=== PATIENT | male | born 1970 | race Caucasian/White ===

== ENCOUNTER 2019-07-06 09:13 | Day surgery (SDC) | payer BC ==
[~2019-07-06] VITALS: Ht 170.2 cm; Wt 79.4 kg
[~2019-07-06 09:13] MED LIST: PROAIR HFA8.5 GM IH
[2019-07-06] MEDS ORDERED: FLONASE ALLERG9.9 ML NAS (09:30)
--- NOTE | 2019-07-06 13:05 | OR ---
[facility] [address], [place] [address] Signed DATE OF OPERATION: 07/06/2019 SURGEON: Loco Miller MD PREOPERATIVE DIAGNOSIS: Left lower pole 4.3 cm "hot" nodule of thyroid (TSH 0.006, T4 normal, radionuclide test showing hot nodule). POSTOPERATIVE DIAGNOSIS: Left lower pole 4.3 cm "hot" nodule of thyroid (TSH 0.006, T4 normal, radionuclide test showing hot nodule). PROCEDURE: Ultrasound-guided fine-needle aspiration biopsy of left thyroid nodule, 4.3 cm. ANESTHESIA: 2 mL of 1.6% lidocaine. INDICATIONS: This 49-year-old white man is a patient of Dr. Sullivan. In routine lab testing, he was found to have a very low TSH. Radionuclide imaging test was undertaken, though he had few of any clinical symptoms of hypothyroidism. This showed a hot uni-focal uptake of the left thyroid lobe. Ultrasound was subsequently performed showing a discrete 4.3 cm nodule of the left lower pole of the thyroid. Thyroid tests were removed, reviewed, and repeated by me showing TSH of 0.006 with a normal T4, T3, only slightly elevated T3. He is clinically euthyroid. He is anticipating left thyroid lobectomy for excision of a hot nodule. Although, uncommon, possibility of malignancy of the hot nodule is considered and on that basis, I have recommend fine-needle aspiration biopsy by ultrasound guidance to determine that possibility. The risks of bleeding and so forth were reviewed with him, he understands and wished to proceed. FINDINGS: The nodule was very easily identified and easily accessed with the 22-gauge needle. Two separate syringe samples were obtained without problem. He had no complications. DESCRIPTION OF PROCEDURE: In the Day Surgery area in room #6, he was placed in a supine position with a pillow beneath the shoulders. Ultrasound evaluation was undertaken of the thyroid gland showing a [id number] right thyroid lobe and a very obvious large nodule of the left thyroid lobe. The skin was then prepared with chlorhexidine solution. Sterilely Electronically Signed By: LOCO MILLER MD 07/06/19 1305 PATIENT NAME: SOCRATES JIN OPERATIVE REPORT DATE OF : 72 REPORT #: [id number] PHYSICIAN: LOCO MILLER MD PCP: LOUISA SULLIVAN MD REPORT IS CONFIDENTIAL AND NOT TO BE RELEASED WITHOUT AUTHORIZATION [facility] [address] [place] [id number] Signed draped. Sterile cover was placed to the ultrasound probe, and under direct visualization the skin overlying the left thyroid lobe was anesthetized with 1% lidocaine. Once fully anesthetized, a control syringe with a 22-gauge needle was used, easily accessing the nodule in question and multiple passes passed through it, obtaining sample. The first was slightly bloody. A repeat was undertaken, at this time with less blood. Both specimens were sent separately. There was no untoward bleeding. There was no known complication. Bandage applied. He tolerated the procedure well. MD CHAPIN Wolf/VIKI /[id number] Copies: ~ Electronically Signed By: LOCO MILLER MD 07/06/19 1305 PATIENT NAME: SOCRATES JIN Genoveva OPERATIVE REPORT DATE OF : 72 REPORT #: [id number] PHYSICIAN: LOCO MILLER MD PCP: LOUISA SULLIVAN MD REPORT IS CONFIDENTIAL AND NOT TO BE RELEASED WITHOUT AUTHORIZATION
[2019-07-20] MEDS ORDERED: TOPROL XL25 MG PO (08:23)
[2019-07-20] MEDS ORDERED: METHIMAZOLE5 MG PO (08:23)
== END 2019-07-06 10:05 | disposition home or self-care (01) ==
LOC: OPS 09:13 → DS 09:30 → EDSTATUS 09:30 → OPS 09:30
PROC: 0GBG3ZX Excision of Left Thyroid Gland Lobe, Percutaneous Approach, Diagnostic (ICD-10-PCS; principal; 2019-07-06)
DX: E05.10 Thyrotoxicosis with toxic single thyroid nodule without thyrotoxic crisis or storm (principal); I10 Essential (primary) hypertension
CPT/HCPCS: 10021

== ENCOUNTER 2019-07-25 07:40 | Observation (INO) | payer BC ==
[~2019-07-25] VITALS: Ht 170.2 cm; Wt 79.4 kg
--- OUTSIDE RECORDS SUMMARY | ~2019-07-25 | XMS | Encounter Summary ---
Demographics + + + | Address | [address] | | | [place] [address] | + + + | Home Phone | | + + + | Preferred Language | Unknown | + + + | Marital Status | Single | + + + | Mormonism Affiliation | NRP | + + + | Race | White | + + + | Ethnic Group | Not or | + + + Author + + + | Author | [facility] | + + + | Organization | [facility] | + + + | Address | Unknown | + + + | Phone | Unavailable | + + + Support + + +---------+ + | Name | Relationship | Address | Phone | + + +---------+ + | Azul Stubbs | ECON | Unknown | | + + +---------+ + Care Team Providers + +------+ + | Care Last Dipper Name | Role | Phone | + +------+ + | Les Guzman PA-C | PCP | | + +------+ + Encounter Details +--------+ + + + + | Date | Type | Department | Care Team | Description | +--------+ + + + + | 08/31/ | Procedure | [facility] | | | | 2017 | Pass | [facility] | | | | | [facility] | | | | | | Center Admitting | | | | | | Desk Located on the | | | | | | 4th floor [address] | | | | | | [address] [place], | | | | | | [place] [address] | | | +--------+ + + + + Social History + +-------+ +--------+------+ | Tobacco Use | Types | Packs/Day | Years | Date | | | | | Used | | + +-------+ +--------+------+ | Never Smoker | | | | | + +-------+ +--------+------+ + +------+---+---+ | Smokeless Tobacco: | Chew | | | | Current User | | | | + +------+---+---+ + + +---------+ + | Alcohol Use | Drinks/Week | oz/Week | Comments | + + +---------+ + | Yes | 12 Cans of beer | 12.0 | 1-2 day | + + +---------+ + + + + | Sex Assigned at | Date Recorded | | | | + + + | Not on file | | + + + + + + + | Job Start Date | Occupation | Industry | + + + + | Not on file | Not on file | Not on file | + + + + + + + + | Travel History | Travel Start | Travel End | + + + + + + | No recent travel history available. | + + documented as of this encounter Plan of Treatment Not on filedocumented as of this encounter Visit Diagnoses Not on filedocumented in this encounter"
--- OUTSIDE RECORDS SUMMARY | ~2019-07-25 | XMS | Encounter Summary ---
Demographics + + + | Address | [address] | | | [place] [address] | + + + | Home Phone | | + + + | Preferred Language | Unknown | + + + | Marital Status | Single | + + + | Mandaen Affiliation | NRP | + + + | Race | White | + + + | Ethnic Group | Not or | + + + Author + + + | Organization | Unknown | + + + | Address | Unknown | + + + | Phone | Unavailable | + + + Support + + +---------+ + | Name | Relationship | Address | Phone | + + +---------+ + | Azul Stubbs | ECON | Unknown | | + + +---------+ + Care Team Providers + +------+ + | Care Children'S Counselor Name | Role | Phone | + +------+ + | Les Guzman PA-C | PCP | | + +------+ + Encounter Details +--------+--------+ + + + | Date | Type | Department | Care Team | Description | +--------+--------+ + + + | 04/20/ | Travel | | | | | 2020 | | | | | +--------+--------+ + + + Social History + +-------+ [...]
--- OUTSIDE RECORDS SUMMARY | ~2019-07-25 | XMS | Clinical Summary ---
Demographics + + + | Address | [address] | | | [place] [address] | + + + | Home Phone | | + + + | Preferred Language | Unknown | + + + | Marital Status | Single | + + + | Roman Catholic Affiliation | NRP | + + + | Race | White | + + + | Ethnic Group | Not or | + + + Author + + + | Author | [facility] | + + + | Organization | [facility] | + + + | Address | Unknown | + + + | Phone | Unavailable | + + + Support + + +---------+ + | Name | Relationship | Address | Phone | + + +---------+ + | Azul Stubbs | ECON | Unknown | | + + +---------+ + Care Team Providers + +------+ + | Care Compressed Gas Plant Worker Name | Role | Phone | + +------+ + | Les Guzman PA-C | PCP | | + +------+ + Source Comments TARIK is fully live on both [facility] and [facility] Allergies No Known Allergies Medications + + + +---------+------+------+-------+ | Medication | Sig | Dispensed | Refills | Star | End | Statu | | | | | | t | Date | s | | | | | | Date | | | + + + +---------+------+------+-------+ | ibuprofen 200 mg | Take 200 mg by mouth | | 0 | | | Activ | | oral tablet | every six hours as | | | | | e | | | needed. | | | | | | + + + +---------+------+------+-------+ | diclofenac 1 % | Apply to affected | 100 g | 3 | 02/0 | | Activ | | topical gel | area four times | | | 6/20 | | e | | | daily. Apply 4 g | | | 20 | | | + + + +---------+------+------+-------+ Active Problems Not on file Encounters +--------+ + + + + | Date | Type | Specialty | Care Team | Description | +--------+ + + + + | 07/17/ | MyChart | Orthopedics | Uzma Meadows | RE: Loyd Pham - | | 2020 | Encounter | | MD Tiffanie | Reqeust MMI | +--------+ + + + + from Last 3 Months Social History + +-------+ +--------+------+ | Tobacco [...] recent travel history available. | + + Last Filed Vital Signs + + + [...] + + + + | Weight | 81.6 kg (180 lb) | 04/20/2019 12:58 PM | | | | | PST | | + + + + + | Height | 170.2 cm (5' 7") | 04/20/2019 12:58 PM | | | | | PST | | + + + + + | Body Mass Index | 28.19 | 04/20/2019 12:58 PM | | | | | PST | | + + + + + Plan of Treatment + + + + + | Health Maintenance | Due Date | Last Done | Comments | + + + + + | Influenza (Flu) | | 12/30/2015, 01/07/2015, | | | vaccination (Season | 0 | 03/21/2013, Additional history | | | Ended) | | exists | | + + + + + | Pneumococcal | Aged Out | | No longer eligible | | vaccination | | | based on patient's | | | | | age to complete this | | | | | topic | + + + + + Implants + +------+--------+ +--------+--------+--------+ | Implanted | Type | Area | Manufacture | Device | Shelf | Model | | | | | r | | Expira | / | | | | | | Identi | tion | Serial | | | | | | fier | Date | / Lot | + +------+--------+ +--------+--------+--------+ | Suture [place], Peek Corkscrew | | Right: | ARTHREX | | 02/24/ | AR-192 | | Ft Tipleplay Implanted: Qty: | | | | | 2020 | 7PSF-3 | | 2 on 08/31/2016 by Abdiel, | | Should | | | | / | | Uzma Moreno MD at [facility] | | er | | | | /[id number] | | INPATIENT REV LOC | | | | | | 993 | + +------+--------+ +--------+--------+--------+ | [place] Suture 5.5mm 2 Full | | Right: | ARTHREX | | 03/14/ | AR-192 | | Thread Corkscrew Fiberwire 2 | | | | | 2020 | 7PSF / | | Peek 14.7mm Sterile | | Should | | | | | | Disposable - | | er | | | | /[id number] | | [id number]: Qty: 1 on | | | | | | 619 | | 08/31/2016 by Abdiel, | | | | | | | | Uzma Moreno MD at [facility] | | | | | | | | INPATIENT REV LOC | | | | | | | + +------+--------+ +--------+--------+--------+ | [place] Suture 4.75mm | | Right: | ARTHREX | | 11/12/ | AR-232 | | Swivelock Closed Eyelet Vent | | | | | 2020 | 4PSLC | | Peek 19.1mm Sterile | | Should | | | | / | | Disposable - | | er | | | | /[id number] | | [id number]: Qty: 1 on | | | | | | 095 | | 08/31/2016 by Abdiel, | | | | | | | | Uzma Moreno MD at [facility] | | | | | | | | INPATIENT REV LOC | | | | | | | + +------+--------+ +--------+--------+--------+ Results Not on filefrom Last 3 Months Insurance + +--------+ +--------+ + +--------+ | Payer | Benefi | Subscriber | Effect | Phone | Address | Type | | | t Plan | ID | wilfred | | | | | | / | | Dates | | | | | | Group | | | | | | + +--------+ +--------+ + +--------+ | [employer]OR | US | [phone] | 03/06/ | [phone] | [address] | Worker | | | DEPT | | 2016-P | [address] | [phone] | s [address] | | | OF | | resent | | [place], [place] | | | | LABOR | | | | [id number] | | | | WC | | | | | | + +--------+ +--------+ + +--------+ | [place] | BLUE | [phone] | | [phone] | [address] | PPO | | | CROSS | | [phone]-[phone] | 8 | [phone] | | | | [place] | | esent | | [place], | | | | L | | | | [place] [address] | | + +--------+ +--------+ + +--------+ + +--------+ +--------+ + + | Guarantor Name | Accoun | Relation to | Date | Phone | Billing Address | | | t Type | Patient | of | | | | | | | | | | + +--------+ +--------+ + + | Loyd Pham | Person | Self | [birth year] | [address] | | | al/Fam | | 1971 | [id number] | [place] [address] | | | alyssa | | | 3 (Home) | | + +--------+ +--------+ + + | Loyd Pham | Worker | Self | [birth year] | | [address] | | | s Comp | | 1970 | [id number] | [place] [address] | | | | | | 3 (Home) | | + +--------+ +--------+ + + Advance Directives + + + + + | Code Status | Date | Date | Comments | | | Activated | Inactivated | | + + + + + | Full Code | 08/31/2016 | 08/31/2016 | | | | 9:56 AM | 11:59 PM | | + + + + +
--- OUTSIDE RECORDS SUMMARY | ~2019-07-25 | XMS | Encounter Summary ---
Demographics + + + | Address | [address] | | | [place] [address] | + + + | Home Phone | | + + + | Preferred Language | Unknown | + + + | Marital Status | Single | + + + | Evangelical Affiliation | NRP | + + + | Race | White | + + + | Ethnic Group | Not or | + + + Author + + + | Author | [facility] | + + + | Organization | [facility] | + + + | Address | Unknown | + + + | Phone | Unavailable | + + + Support + + +---------+ + | Name | Relationship | Address | Phone | + + +---------+ + | Azul Stubbs | ECON | Unknown | | + + +---------+ + Care Team Providers + +------+ + | Care Director Dietetics Department Name | Role | Phone | + +------+ + | Les Guzman PA-C | PCP | | + +------+ + Encounter Details +--------+ + + + + | Date | Type | Department | Care Team | Description | +--------+ + + + + | 07/12/ | Document-Sc | Health Information | Unknown . | | | 2017 | anned | Services [address] | | | | | [address] | | | | | | Mailcode: [id number] | | | | | | [facility] | | | | | | [place], [place] | | | | | | [address] | | | | | | [phone] | | | +--------+ + + + [...]
--- OUTSIDE RECORDS SUMMARY | ~2019-07-25 | XMS | Encounter Summary ---
Demographics + + + | Address | [address] | | | [place] [address] | + + + | Home Phone | | + + + | Preferred Language | Unknown | + + + | Marital Status | Single | + + + | Synagogue Affiliation | NRP | + + + | Race | White | + + + | Ethnic Group | Not or | + + + Author + + + | Author | [facility] | + + + | Organization | [facility] | + + + | Address | Unknown | + + + | Phone | Unavailable | + + + Support + + +---------+ + | Name | Relationship | Address | Phone | + + +---------+ + | Azul Stubbs | ECON | Unknown | | + + +---------+ + Care Team Providers + +------+ + | Care Wastewater Analyst Lab Analyst Name | Role | Phone | + [...] | | tear of | MD Tiffanie 1910 | [facility] | | | | | right | [address] | [address] | | | | | rotator cuff | [place] | Mar[place] | | | | | Procedures | [address] | [place] | | | | | PHYSICAL | Phone: | [phone] | | | | | THERAPY | [phone] | Phone: | | | | | REFERRAL | Fax: | [phone] | | | | | | [phone] | Fax: | | | | | | | [phone] | +--------+--------+ + + + + PROC [...] | | tear of | [place] | [address] | | | | | right | Medical | [address] | | | | | rotator cuff | [address] | [place], [place] | | | | | Procedures | [address] | [address] | | | | | REQUEST TO | St | Phone: | | | | | SURGERY | [place] | [phone] | | | | | MACHINE TOOL MECHANIC | [address] | Fax: | | | | | [facility] | Phone: | [phone] | | | | | ARTHROSCOP,S | [phone] | | | | | | URG,W/ROTAT | Fax: | | | | | | CUFF REPR | [phone] | | | | | | [facility] | | | | | | | ARTHROSCOP,P | | | | | | | ART | | | | | | | ACROMIOPLAS | | | | | | | W/CORACOACRO | | | | | | | M [facility] [facility] | | | | | | | ARTHROSCOP,S | | | | | | | URG,CAPSULOR | | | | | | | [place] | | | | | | | [...] | | injury of | [place] | [address] | | | | | muscle(s) | Medical | [address] | | | | | and | [facility] [address] | [place], [place] | | | | | tendon(s) of | [address] | [address] | | | | | the rotator | St | Phone: | | | | | cuff of | [place], [place] | [phone] | | | | | right | [address] | Fax: | | | | | shoulder, | Phone: | [phone] | | | | | subsequent | [phone] | | | | | | encounter | Fax: | | | | | | Pain in | [phone] | | | | | | right [...] | 2017 | Visit | [facility] at [facility] | M, MD [address] | right rotator cuff | | | | for Health and | Ave [place], [place] | (Primary Dx) | | | | Healing [address] | [address] | | | | | Ave Mailcode: | [phone] | | | | | [facility] | | | | | | Health and Healing, | | | | | | [facility] | | | | | | Floor [place], [place] | | | | | | [address] | | | | | | [phone] | | | +--------+---------+ + + + [...] 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 Tobacco: chews tobacco, no smoking. EtOH: 2-3/week. [...] ++ neg Cross-chest Not tested Not tested Cresco's Not tested Not tested Yergason (resisted supination) [...] were answered today. 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 Uzma Meadows MD [facility] Department of Orthopaedics and Rehabilitation Division of [...]
--- OUTSIDE RECORDS SUMMARY | ~2019-07-25 | XMS | Encounter Summary ---
Demographics + + + | Address | [address] | | | [place] [address] | + + + | Home Phone | | + + + | Preferred Language | Unknown | + + + | Marital Status | Single | + + + | Oriental Orthodox Affiliation | NRP | + + + | Race | White | + + + | Ethnic Group | Not or | + + + Author + + + | Author | [facility] | + + + | Organization | [facility] | + + + | Address | Unknown | + + + | Phone | Unavailable | + + + Support + + +---------+ + | Name | Relationship | Address | Phone | + + +---------+ + | Azul Stubbs | ECON | Unknown | | + + +---------+ + Care Team Providers + +------+ + | Care Ship/Rec/Doc Control Name | Role | Phone | + +------+ + | Les Guzman PA-C | PCP | | + +------+ + Encounter Details +--------+ + + + + | Date | Type | Department | Care Team | Description | +--------+ + + + + | 04/20/ | Hospital | Radiology/Imaging | Cherelle King | Canceled (Patient | | 2020 | Encounter | Lab at [facility] [address] Ida Moreno PA-C [address] | Request) | | | | Prasanna Cisneros Mailcode: | [address] | | | | | [facility] | [place], [place] | | | | | Health and Healing, | [address] | | | | | [address] | [phone] | | | | | Floor [place], [place] | | | | | | [address] | | | | | | [phone] | | | +--------+ + + + [...] + + documented as of this encounter Medications at Time of Discharge + + + +---------+ + + | Medication | Sig | Dispensed | Refills | Start | End Date | | | | | | Date | | + + + +---------+ + + | diclofenac 1 % | Apply to affected | 100 g | 3 | 04/20/19 | | | topical gel | area four times | | | 20 | | | | daily. Apply 4 g | | | | | + + + +---------+ + + | ibuprofen 200 mg | Take 200 mg by mouth | | 0 | | | | oral tablet | every six hours as | | | | | | | needed. | | | | | + + + +---------+ + + documented as of this encounter Plan of Treatment Not on filedocumented as of this encounter Visit Diagnoses + + | Diagnosis | + + | Complete tear of right rotator cuff, unspecified whether traumatic | + + | Right elbow pain Pain in joint, upper arm | + + documented in this encounter"
--- OUTSIDE RECORDS SUMMARY | ~2019-07-25 | XMS | Encounter Summary ---
Demographics + + + | Address | [address] | | | [place] [address] | + + + | Home Phone | | + + + | Preferred Language | Unknown | + + + | Marital Status | Single | + + + | Mosque Affiliation | NRP | + + + [...] Team Providers + +------+ + | Care Sustainability Communicator Name | Role | Phone | + +------+ + | Les Guzman PA-C | PCP | | + +------+ + Reason for Visit +---------+ + | Reason | Comments | +---------+ + | Post Op | right shoulder | +---------+ + PROC - Outpatient Surgery (Urgent) +--------+--------+ [...] | | tear of | Gem | [address] | | | | | right | Medical | [address] | | | | | rotator cuff | Center [address] | [place], [place] | | | | | Procedures | [address] | [address] | | | | | REQUEST TO | St | Phone: | | | | | SURGERY | [place] | [phone] | | | | | RACING DRIVER | [address] | Fax: | | | | | PA SHLDR | Phone: | [phone] | | | | | ARTHROSCOP,S | [phone] | | | | | | URG,W/ROTAT | Fax: | | | | | | CUFF REPR | [phone] | | | | | | PA SHLDR | | | | | | | ARTHROSCOP,P | | | | | | | ART | | | | | | | ACROMIOPLAS | | | | | | | W/CORACOACRO | | | | | | | M PA SHLDR | | | | | | | ARTHROSCOP,S | | | | | | | URG,CAPSULOR | | | | | | | RHAPHY PA | | | | | | | REPAIR | | | | | | | BICEPS LONG | | | | | | | TENDON | | | +--------+--------+ + + + + Encounter Details +--------+---------+ + + + | Date | Type | Department | Care Team | Description | +--------+---------+ + + + | 09/16/ | Office | Orthopaedics | Antonia Meadowsline | Complete tear of | | 2017 | Visit | [facility] at [place] | MD Tiffanie [address] | right rotator cuff | | | | for Health and | Ave [place], [place] | (Primary Dx) | | | | Healing [address] | [address] | | | | | Ave Mailcode: | [phone] | | | | | [facility] | | | | | | Health and Healing, | | | | | | [facility] | | | | | | Floor [place], [place] | | | | | | [address] | | | | | | [phone] | | | +--------+---------+ + + + [...] Weight | 79.4 kg (175 lb) | 09/16/2016 10:00 AM | | | | | PDT | | + + + + + | Height | 170.2 cm (5' 7") | 09/16/2016 10:00 AM | | | | | PDT | | + + + + + | Body Mass Index | 27.41 | 09/16/2016 10:00 AM | | | | | PDT | | + + + + + documented in this encounter Progress Notes Uzma Meadows MD - 09/16/2016 10:20 AM PDTDiagnosis: right shoulder rotator cuff tea r Interventions to date: 08/31/2016 right shoulder arthroscopy with rotator cuff repair (supra spinatus and infraspinatus) and subacromial decompression Review of interval history and current physical exam indicates that each is essentially unc hanged with the notable exceptions as described above and below. Subjective: Loyd Pham is now nearly 2 weeks out from the above procedure and is doing we ll. He had some increased pain immediately following his surgery, however this improved on its own and he is now off of all pain medications. He continues to work on [employer] es is very pleased with his progress at this point. He has had some paresthesias and numbne ss over the base of his thumb, but he thinks that this is slowly getting better. EXAM: Posture: in sling. Right upper extremity Skin and Soft tissue: incisions clean and dry with no signs of infection, well healed. Mildly decreased sensation at dorsal base of thumb Extends thumb, flexes index distal interphalangeal joint, abducts and crosses fingers Full ROM in forearm pronosupination Fingers warm and well perfused Assessment: Loyd is recovering well from his right rotator cuff repair, now 2 weeks out. He does seem to have a superficial radial nerve injury, likely from positioning during sugar elliott. We will continue to follow this with the expectation that it will improve over time. Plan: Continue dangling shoulder ROM OK for full elbow flexion/extension and pronosupination with elbow at side Follow up in clinic in 4 weeks for initiation of physical therapy and potential discontinua tion of sling use I personally interviewed and evaluated this patient. I agree with the resident's findings and plan of care as described. Uzma Meadows MD [facility] [place] Department of Orthopaedics and Rehabilitation Division of Sports Medicine documented in thi s encounter Plan of Treatment Not on filedocumented as of this encounter Visit Diagnoses + + | Diagnosis | + + | Complete tear of right rotator cuff - Primary Complete rupture of rotator cuff | + + documented in this encounter
--- OUTSIDE RECORDS SUMMARY | ~2019-07-25 | XMS | Encounter Summary ---
Demographics + + + | Address | [address] | | | [place] [address] | + + + | Home Phone | | + + + | Preferred Language | Unknown | + + + | Marital Status | Single | + + + | Buddhist Affiliation | NRP | + + + | Race | White | + + + | Ethnic Group | Not or | + + + Author + + + | Author | [facility] | + + + | Organization | [facility] | + + + | Address | Unknown | + + + | Phone | Unavailable | + + + Support + + +---------+ + | Name | Relationship | Address | Phone | + + +---------+ + | Azul Stubbs | ECON | Unknown | | + + +---------+ + Care Team Providers + +------+ + | Care Top Spotter Name | Role | Phone | + [...] + + | 08/31/ | Hospital | [facility] | Uzma Meadows | | | 2017 | Encounter | STAY [address] | MD Tiffanie [address] | | | | | [place] Mailcode: DONNA | [place], [place] | | | | | [facility] | [address] | | | | | Health and Healing, | [phone] | | | | | [place] [address] | | | | | | [place], [place] | | | | | | [address] | | | | | | [phone] | | | +--------+ + + + [...] towards you body. documented in this encounter Plan of Treatment Not on [...] | Uzma Meadows MD 08/31/2016 6:02 PM [facility] Orthopaedic | | | Sports Surgery Operative Report Date of surgery: 08/31/2016 | | | Preoperative diagnosis: right shoulder rotator cuff tear | | | Postoperative diagnosis: same Procedure: right shoulder | | | arthroscopy with rotator cuff repair (supraspinatus and | | | infraspinatus) and subacromial decompression Surgeon: Uzma | | | MD Abdiel Enrollment Services Vice President: Jose Gaming MD Implants: Arthrex 5.5 mm [...] entire case. Uzma Meadows, | | | [facility] Department of Orthopaedics | | | [...]
--- OUTSIDE RECORDS SUMMARY | ~2019-07-25 | XMS | Encounter Summary ---
Demographics + + + | Address | [address] | | | [place] [address] | + + + | Home Phone | | + + + | Preferred Language | Unknown | + + + | Marital Status | Single | + + + | Muslim Affiliation | NRP | + + + | Race | White | + + + | Ethnic Group | Not or | + + + Author + + + | Author | [facility] | + + + | Organization | [facility] | + + + | Address | Unknown | + + + | Phone | Unavailable | + + + Support + + +---------+ + | Name | Relationship | Address | Phone | + + +---------+ + | Azul Stubbs | ECON | Unknown | | + + +---------+ + Care Team Providers + +------+ + | Care Box Inspector Name | Role | Phone | + +------+ + | Les Guzman PA-C | PCP | | + +------+ + Encounter Details +--------+ + + + + | Date | Type | Department | Care Team | Description | +--------+ + + + + | 04/20/ | Hospital | Radiology/Imaging | Cherelle King | | | 2020 | Encounter | Lab at [facility] [address] PA-C [address] | | | | | [address] Mailcode: | [address] | | | | | [address] for | [place], [place] | | | | | Health and Healing, | [address] | | | | | | [phone] | | | | | Floor [place], [place] | | | | | | [address] | | | | | | [phone] | | | +--------+ + + + [...] Perry MD 04/20/2019 12:34 PM | |Preliminary: uSkumar Perry MD | |Dictation initiated: Sukumar Perry [...]
--- OUTSIDE RECORDS SUMMARY | ~2019-07-25 | XMS | Encounter Summary ---
Demographics + + + | Address | [address] | | | [place] [address] | + + + | Home Phone | | + + + | Preferred Language | Unknown | + + + | Marital Status | Single | + + + | Zoroastrianism Affiliation | NRP | + + + | Race | White | + + + | Ethnic Group | Not or | + + + Author + + + | Author | [facility] | + + + | Organization | [facility] | + + + | Address | Unknown | + + + | Phone | Unavailable | + + + Support + + +---------+ + | Name | Relationship | Address | Phone | + + +---------+ + | Azul Stubbs | ECON | Unknown | | + + +---------+ + Care Team Providers + +------+ + | Care Charm Filter Operator Helper Name | Role | Phone | + +------+ + | Les Guzman PA-C | PCP | | + +------+ + Reason for Visit + + + | Reason | Comments | + + + | Follow-up encounter | | + + + Encounter Details +--------+---------+ + + + | Date | Type | Department | Care Team | Description | +--------+---------+ + + + | 05/09/ | Office | Orthopaedics | Uzma Meadows | Complete tear of | | 2019 | Visit | Faculty at [place] | MD Tiffanie [address] | right rotator cuff | | | | for Health and | Ave [place], [place] | (Primary Dx) | | | | Healing [address] | [address] | | | | | Ave Mailcode: | [phone] | | | | | [facility] [place] for | | | | | | Health and Healing, | | | | | | [facility] | | | | | | Floor [place], [place] | | | | | | [address] | | | | | | [phone] | | | +--------+---------+ + + + [...] + + documented as of this encounter Progress Notes Uzma Meadows MD - 05/09/2018 11:00 AM PST Diagnosis: rightshoulder rotator cuff tear [facility] date: [facility] repair (supr aspinatus and infraspinatus) andsubacromial decompression Review of interval history and current physical exam indicates that each is essentially unc hanged with the notable exceptions as described above and below. Subjective: Reports that he has been working at [employer] with minimal discomfort Still notes some weakness of the right upper extremity compared to the left EXAM: Posture: normal. Skin and Soft tissue: well healed. Range of motion: Right Left Active Passive Active Passive Forward flexion 180 180 Ext. rotation @ 0 90 90 Internal rotation T8 T4 Abduction 180 180 Strength: Operative arm Supraspinatus 4+/5 Infraspinatus 5/5 Subscapularis 5/5 Deltoid 5/5 Biceps 5/5 Assessment: >1 year post operative. Doing well with mild end range of motion deficits com pared to non-operative side and slight decreased strengthen of supraspinatus that should imp rove with continual work. Plan: - continue with home exercise program - given physician note for work purposes - follow up prn; patient will continue physical therapy for as long as he is seeing a benef it, and transition to home program at that time I personally interviewed and evaluated this patient. I agree with the fellow's findings an d plan of care as described. Uzma Meadows MD [facility] Department of Orthopaedics and Rehabilitation Division of Sports Medicine documented in thi s encounter Plan of Treatment Not on filedocumented as of this encounter Visit Diagnoses + + | Diagnosis | + + | Complete tear of right rotator cuff - Primary Complete rupture of rotator cuff | + + documented in this encounter"
--- OUTSIDE RECORDS SUMMARY | ~2019-07-25 | XMS | Encounter Summary ---
Demographics + + + | Address | [address] | | | [place] [address] | + + + | Home Phone | | + + + | Preferred Language | Unknown | + + + | Marital Status | Single | + + + | Sikh Affiliation | NRP | + + + [...] Team Providers + +------+ + | Care Lathe Setup Operator Name | Role | Phone | + [...] + + | 08/31/ | Surgery | [facility] | Uzma Meadows | RIGHT SHOULDER | | 2017 | | [place] for [facility] | MD Tiffanie [address] | ARTHROSCOPY WITH | | | | and Healing Surgery | [place], [place] | SUBACROMIAL | | | | Center Admitting | [address] | DECOMPRESSION, | | | | Desk Located on the | [phone] | ROTATOR CUFF REPAIR | | | | 4th floor [address] | | VERSUS POSSIBLE | | | | [address] [place], | | SUPERIOR CAPSULAR | | | | [place] [address] | | RECONSTRUCTION AND | | | [...] patient satisfaction survey from "[employer]". We jeovanny mata appreciate your feedback on the survey to [...] | Uzma Meadows MD 08/31/2016 6:02 PM [facility] Orthopaedic | | | Sports Surgery Operative Report Date of surgery: 08/31/2016 | | | Preoperative diagnosis: right shoulder rotator cuff tear | | | Postoperative diagnosis: same Procedure: right shoulder | | | arthroscopy with rotator cuff repair (supraspinatus and | | | infraspinatus) and subacromial decompression Surgeon: Uzma | | | MD Abdiel Personal Investment Adviser: Jose Gaming MD Implants: Arthrex 5.5 mm [...] entire case. Uzma Meadows, | | | [facility] Department of Orthopaedics | | | and [...] | | | CONTINUOUS, Starting 08/31/16 | anesthes | PM PDT | | [...] 6 mL/hr | | | nerve block ([facility], Single, I-Flow | | 17 4:47 | [...]
--- OUTSIDE RECORDS SUMMARY | ~2019-07-25 | XMS | Encounter Summary ---
Demographics + + + | Address | [address] | | | [place] [address] | + + + | Home Phone | | + + + | Preferred Language | Unknown | + + + | Marital Status | Single | + + + | Yarsani Affiliation | NRP | + + + | Race | White | + + + | Ethnic Group | Not or | + + + Author + + + | Author | [facility] | + + + | Organization | [facility] | + + + | Address | Unknown | + + + | Phone | Unavailable | + + + Support + + +---------+ + | Name | Relationship | Address | Phone | + + +---------+ + | Azul Stubbs | ECON | Unknown | | + + +---------+ + Care Team Providers + +------+ + | Care Global Lead Name | Role | Phone | + +------+ + | Les Guzman PA-C | PCP | | + +------+ + Reason for Visit +---------+ + | Reason | Comments | +---------+ + | Post Op | | +---------+ + Encounter Details +--------+ + + + + | Date | Type | Department | Care Team | Description | +--------+ + + + + | 09/01/ | Telephone | Orthopaedics | Uzma Meadows | Post Op | | 2017 | | Faculty at [place] | MD [address] | | | | | for Health and | [place] [facility] [place] | | | | | Grant [address] | [address] | | | | | [place] Mailcode: | [phone] | | | | | [facility] | | | | | | Health and Healing, | | | | | | [facility] | | | | | | [place], [place] | | | | | | [address] | | | | | | [phone] | | | +--------+ + + + [...]
--- OUTSIDE RECORDS SUMMARY | ~2019-07-25 | XMS | Encounter Summary ---
Demographics + + + | Address | [address] | | | [place] [address] | + + + | Home Phone | | + + + | Preferred Language | Unknown | + + + | Marital Status | Single | + + + | Islam Affiliation | NRP | + + + | Race | White | + + + | Ethnic Group | Not or | + + + Author + + + | Author | [facility] | + + + | Organization | [facility] | + + + | Address | Unknown | + + + | Phone | Unavailable | + + + Support + + +---------+ + | Name | Relationship | Address | Phone | + + +---------+ + | Azul Stubbs | ECON | Unknown | | + + +---------+ + Care Team Providers + +------+ + | Care Store Facility Technician Name | Role | Phone | + [...] | | | dyskinesis | MD Tiffanie [address] | | | | | | Procedures | [address] | | | | | | PHYSICAL | [place], [place] | | | | | | THERAPY | [address] | | | | | | REFERRAL | Phone: | | | | | | | [phone] | | | | | | | Fax: | | | | | | | [phone] | | +--------+--------+ + + + + Reason for Visit + + + | Reason | Comments | + + + | Physical Therapy | | | Guidance | | + + + Encounter Details +--------+ + + + + | Date | Type | Department | Care Team | Description | +--------+ + + + + | 03/16/ | Telephone | Orthopaedics | Uzma Meadows | Physical Therapy | | 2019 | | Faculty at [place] | MD Tiffanie [address] | Guidance | | | | for Health and | Ave [facility] [place] | | | | | Healing [address] | [address] | | | | | Ave Mailcode: | [phone] | | | | | [facility] | | | | | | Health and Healing, | | | | | | | | | | | | Floor [place], [place] | | | | | | [address] | | | | | | [phone] | | | +--------+ + + + [...]
--- OUTSIDE RECORDS SUMMARY | ~2019-07-25 | XMS | Encounter Summary ---
Demographics + + + | Address | [address] | | | [place] [address] | + + + | Home Phone | | + + + | Preferred Language | Unknown | + + + | Marital Status | Single | + + + | Gnosticism Affiliation | NRP | + + + | Race | White | + + + | Ethnic Group | Not or | + + + Author + + + | Author | [facility] | + + + | Organization | [facility] | + + + | Address | Unknown | + + + | Phone | Unavailable | + + + Support + + +---------+ + | Name | Relationship | Address | Phone | + + +---------+ + | Azul Stubbs | ECON | Unknown | | + + +---------+ + Care Team Providers + +------+ + | Care Biomedical Service Engineer Name | Role | Phone | + +------+ + | Les Guzman PA-C | PCP | | + +------+ + Encounter Details +--------+ + + + + | Date | Type | Department | Care Team | Description | +--------+ + + + + | 10/19/ | Telephone | Orthopaedics | Uzma Meadows | | | 2017 | | Faculty at [place] | MD Tiffanie [address] | | | | | for Health and | Ave [facility] [place] | | | | | Healing [address] | [address] | | | | | Ave Mailcode: | [phone] | | | | | [facility] [facility] | | | | | | Health and Healing, | | | | | | [facility] | | | | | | [place], [place] | | | | | | [address] | | | | | | [phone] | | | +--------+ + + + [...]
--- OUTSIDE RECORDS SUMMARY | ~2019-07-25 | XMS | Encounter Summary ---
Demographics + + + | Address | [address] | | | [place] [address] | + + + | Home Phone [...] + + + | Author | [facility] | + + + | Organization | [facility] | + + + | Address | Unknown | + + + | Phone | Unavailable | + + + Support + + +---------+ + | Name | Relationship | Address | Phone | + + +---------+ + | Azul Stubbs | ECON | Unknown | | + + +---------+ + Care Team Providers + +------+ + | Care Take Out Waiter/Waitress Name | Role | Phone | + +------+ + | Les Guzman PA-C | PCP | | + +------+ + Encounter Details +--------+ + + + + | Date | Type | Department | Care Team | Description | +--------+ + + + + | 01/07/ | Telephone | Orthopaedics | Uzma Meadows | | | 2017 | | Faculty at [place] | MD Tiffanie [address] | | | | | for Health and | Ave [facility] [place] | | | | | Healing [address] | [address] | | | | | Ave Mailcode: | [phone] | | | | | [facility] | | | | | | Health and Healing, | | | | | | [facility] | | | | | | [place], [place] | | | | | | [address] | | | | | | [phone] | | | +--------+ + + + [...]
--- OUTSIDE RECORDS SUMMARY | ~2019-07-25 | XMS | Encounter Summary ---
Demographics + + + | Address | [address] | | | [place] [address] | + + + | Home Phone | | + + + | Preferred Language | Unknown | + + + | Marital Status | Single | + + + | Presybeterian Affiliation | NRP | + + + | Race | White | + + + | Ethnic Group | Not or | + + + Author + + + | Author | [facility] | + + + | Organization | [facility] | + + + | Address | Unknown | + + + | Phone | Unavailable | + + + Support + + +---------+ + | Name | Relationship | Address | Phone | + + +---------+ + | Azul Stubbs | ECON | Unknown | | + + +---------+ + Care Team Providers + +------+ + | Care Boiler Water Tester Name | Role | Phone | + +------+ + | Les Guzman MD | PCP | | + +------+ + Encounter Details +--------+ + + + + | Date | Type | Department | Care Team | Description | +--------+ + + + + | 03/09/ | Document-Sc | Health Information | Unknown . | | | 2015 | anned | Services [id number] | | | | | | [address] | | | | | | Mailcode: [id number] | | | | | | [facility] | | | | | | [place], [place] | | | | | | [address] | | | | | | [phone] | | | +--------+ + + + [...]
--- OUTSIDE RECORDS SUMMARY | ~2019-07-25 | XMS | Encounter Summary ---
Demographics + + + | Address | [address] | | | [place] [address] | + + + | Home Phone | | + + + | Preferred Language | Unknown | + + + | Marital Status | Single | + + + | Orthodox Affiliation | NRP | + + [...] Team Providers + +------+ + | Care Professor Of Languages Name | Role | Phone | + +------+ + | Les Guzman PA-C | PCP | | + +------+ + Reason for Visit + + + | Reason | Comments | + + + | Follow-up encounter | | + + + Office Visit - E/M Services (Urgent) +--------+--------+ + + + + | Status | Reason | Specialty | Diagnoses / | Referred By | Referred To | | | | | Procedures | Contact | Contact | +--------+--------+ + + + + | Closed | | Orthopedics | Diagnoses | Non-[facility] | Abdiel, | | | | | Complete | Epic Dept | Uzma Moreno, | | | | | rotator cuff | | [address] | | | | | tear or | | [address] | | | | | rupture of | | [facility] [place] | | | | | right | | [address] | | | | | shoulder, | | Phone: | | | | | not | | [phone] | | | | | specified as | | Fax: | | | | | traumatic | | [phone] | +--------+--------+ + + + + Encounter Details +--------+---------+ + + + | Date | Type | Department | Care Team | Description | +--------+---------+ + + + | 01/26/ | Office | Orthopaedics | Uzma Meadows | Complete tear of | | 2017 | Visit | [facility] | MD Tiffanie [address] | right rotator cuff | | | | for Health and | Ave [place], [place] | (Primary Dx) | | | | Healing [address] | [address] | | | | | Ave Mailcode: | [phone] | | | | | [facility] | | | | | | Health and Healing, | | | | | | [facility] | | | | | | Floor [place], [place] | | | | | | [address] | | | | | | [phone] | | | +--------+---------+ + + + [...] encounter Progress Notes Uzma Meadows MD - 01/26/2017 8:55 AM PST Interventions to date: 08/31/2016 rightshoulder arthroscopy with rotator cuff repair (supr aspinatus and infraspinatus) andsubacromial decompression Review of interval history and current physical exam indicates that each is essentially unc hanged with the notable exceptions as described above and below. Review of interval history and current physical exam indicates that each is essentially unc hanged with the notable exceptions as described above and below. Subjective: Mr. Pham is doing very well overall. He is continuing to work hard with PT, a nd he feels his shoulder function has really turned a corner in terms of mobility and streng th. He feels ready to return to full work duties. EXAM: Posture: normal. Skin and Soft tissue: well healed. Range of motion: Right Left Active Passive Active Passive Scapular plane 170 180 Ext. rotation @ 0 50 60 Ext. rotation @ 90 Not tested Not tested Internal rotation L1 T8 Kinetics normal normal Strength: Operative arm Supraspinatus 4+/5 Infraspinatus 5/5 Subscapularis Intact lift-off Deltoid 5/5 Biceps 5/5 with no pain Assessment: Progressing well. Plan: Ok to return to full work duties. Continue PT, return to clinic at 1 year post-op, or sooner if problems arise. Uzma Meadows MD [facility] Department of Orthopaedics and Rehabilitation Division of Sports Medicine documented in thi s encounter Plan of Treatment Not on filedocumented as of this encounter Procedures + +--------+ + + + | Procedure Name | Priori | Date/Time | Associated Diagnosis | Comments | | | ty | | | | + +--------+ + + + | ORDERS OTHER | | 01/26/2017 | | Results for this | | | | 12:00 AM | | procedure are in the | | | | PST | | results section. | + +--------+ + + + documented in this encounter Results ORDERS OTHER (01/26/2017 12:00 AM PST) + + + | Narrative | Performed At | + + + | | | + + + documented in this encounter Visit Diagnoses + + | Diagnosis | + + | Complete tear of right rotator cuff - Primary Complete rupture of rotator cuff | + + documented in this encounter"
--- OUTSIDE RECORDS SUMMARY | ~2019-07-25 | XMS | Encounter Summary ---
Demographics + + + | Address | [address] | | | [place] [address] | + + + | Home Phone [...] Author + + + | Author | [facility] | + + + | Organization | [facility] | + + + | Address | Unknown | + + + | Phone | Unavailable | + + + Support + + +---------+ + | Name | Relationship | Address | Phone | + + +---------+ + | Azul Stubbs | ECON | Unknown | | + + +---------+ + Care Team Providers + +------+ + | Care Revenue Investigator Name | Role | Phone | + [...] | | | | | | | [facility] [place] | | | | | | | [address] | | | | | | | Phone: | | | | | | | [phone] | | | | | | | Fax: | | | | | | | [phone] | + +--------+ + + + + Encounter Details +--------+---------+ + + + | Date | Type | Department | Care Team | Description | +--------+---------+ + + + | 04/20/ | Office | Orthopaedics | Cherelle King | Complete tear of | | 2019 | Visit | [facility] at [place] | NATHAN Moreno [address] | right rotator cuff, | | | | for [facility] | [address] | unspecified whether | | | | Healing [address] | [place], [place] | traumatic (Primary | | | | Ave Mailcode: | [address] | Dx); Right elbow | | | | 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
--- OUTSIDE RECORDS SUMMARY | ~2019-07-25 | XMS | Encounter Summary ---
Demographics + + + | Address | [address] | | | [place] [address] | + + + | Home Phone | | + + + | Preferred Language | Unknown | + + + | Marital Status | Single | + + + | Yazidi Affiliation | NRP | + + + [...] Team Providers + +------+ + | Care Principal Law Clerk Name | Role | Phone | [...] [id number] | | | | | | [facility] | | | | | | [place], [place] | | | | | | [address] | | | | | | [phone] | | | +--------+ + + + [...]
--- OUTSIDE RECORDS SUMMARY | ~2019-07-25 | XMS | Encounter Summary ---
Demographics + + + | Address | [address] | | | [place] [address] | + + + | Home Phone | | + + + | Preferred Language | Unknown | + + + | Marital Status | Single | + + + | Pentecostal Affiliation | NRP | + + + | Race | White | + + + | Ethnic Group | Not or | + + + Author + + + | Author | [facility] | + + + | Organization | [facility] | + + + | Address | Unknown | + + + | Phone | Unavailable | + + + Support + + +---------+ + | Name | Relationship | Address | Phone | + + +---------+ + | Azul Stubbs | ECON | Unknown | | + + +---------+ + Care Team Providers + +------+ + | Care Chemical Plant Operator Supervisor Name | Role | Phone | + [...] Uzma Meadows | Physical Therapy | | 2016 | | Faculty at [place] | MD Tiffanie [address] | Guidance | | | | for Health and | Ave [place], [place] | | | | | Healing [address] | [address] | | | | | Ave Mailcode: | [phone] | | | | | [facility] | | | | | | Health and Healing, | | | | | | [facility] | | | | | | [place], [place] | | | | | | [address] | | | | | | [phone] | | | +--------+ + + + [...]
--- OUTSIDE RECORDS SUMMARY | ~2019-07-25 | XMS | Encounter Summary ---
Demographics + + + | Address | [address] | | | [place] [address] | + + + | Home Phone | | + + + | Preferred Language | Unknown | + + + | Marital Status | Single | + + + | Mandaeism Affiliation | NRP | + + + [...] Team Providers + +------+ + | Care Hazardous Materials Driver Name | Role | Phone | + [...] + + + + | 08/31/ | Anesthesia | [facility] | Damián Razo | | | 2017 | Event | [facility] | DO Manish Mcnally Justin | | | | | and Healing Surgery | MD Willard [address] | | | | | Center Admitting | [facility] | | | | | Desk Located on the | [place], [place] | | | | | 4th floor [address] | [address] | | | | | [address] [place], | [phone] | | | | | [place] [address] | | | +--------+ + + + + Anesthesia Record + + + + + | Procedure Name | Responsible | Anesthesia Start | Anesthesia Stop Time | | | Anesthesiologist | Time | | + + + + + | RIGHT SHOULDER | Damián Razo, | 08/31/16 1158 | 08/31/16 1621 | | ARTHROSCOPY WITH | DO | | | | SUBACROMIAL | | | | | DECOMPRESSION, | | | | | ROTATOR CUFF REPAIR | | | | | VERSUS POSSIBLE | | | | | SUPERIOR CAPSULAR | | | | | RECONSTRUCTION AND | | | | | POSSIBLE OPEN | | | | | SUBPECTORAL BICEPS | | | | | TENODESIS (Right | | | | | Shoulder) | | | | + + + + + +----+---+ + + | Da | T | Event | Comment | | te | i | | | | | m | | | | | e | | | +----+---+ + + | 06 | 1 | Eq Check | Anesthesia machine checked Equipment verified | | /1 | 1 | | | | 9/ | 5 | | | | 20 | 0 | | | | 17 | | | | +----+---+ + + | | 1 | An Start | | | | 1 | | | | | 5 | | | | | 8 | | | +----+---+ + + | | 1 | Start PNB | | | | 1 | | | | | 5 | | | | | 9 | | | +----+---+ + + | | 1 | O2 by NC | | | | 2 | | | | | 0 | | | | | 0 | | | +----+---+ + + | | 1 | Block Pause | | | | 2 | | | | | 0 | | | | | 1 | | | +----+---+ + + | | 1 | PNB Stop | | | | 2 | | | | | 3 | | | | | 0 | | | +----+---+ + + | | 1 | Eq Check | Anesthesia machine checked Equipment verified | | | 2 | | | | | 3 | | | | | 8 | | | +----+---+ + + | | 1 | Pt. Check | Prior to anesthesia start, pt. Identified, examined, chart | | | 2 | | reviewed, PARQ held, anesthetic plan made or approved by | | | 3 | | attending anesthesiologist. NPO status confirmed as appropriate | | | 8 | | for procedure Preoperative evaluation: unchanged | +----+---+ + + | | 1 | An Start | | | | 2 | Data | | | | 3 | | | | | 8 | | | +----+---+ + + | | 1 | Vitals | Monitors applied Vital signs checked Patient ready for anesthesia | | | 2 | Checked | | | | 4 | | | | | 3 | | | +----+---+ + + | | 1 | ETT | | | | 2 | | | | | 4 | | | | | 8 | | | +----+---+ + + | | 1 | Ready | | | | 2 | | | | | 5 | | | | | 5 | | | +----+---+ + + | | 1 | Abx | | | | 3 | Administere | | | | 0 | d | | | | 3 | | | +----+---+ + + | | 1 | Timeout | | | | 3 | | | | | 1 | | | | | 5 | | | +----+---+ + + | | 1 | Incision | | | | 3 | | | | | 1 | | | | | 6 | | | +----+---+ + + | | 1 | Quick Note | Phenylephrine gtt started. | | | 3 | | | | | 4 | | | | | 0 | | | +----+---+ + + | | 1 | Surgery end | | | | 6 | | | | | 1 | | | | | 6 | | | +----+---+ + + | | 1 | An Extubate | Neuromuscular function Intact. Pharynx suctioned. Patient obeys | | | 6 | | commands. Adequate pulmonary mechanics. | | | 1 | | | | | 6 | | | +----+---+ + + | | 1 | an stop | | | | 6 | data | | | | 1 | | | | | 6 | | | +----+---+ + + | | 1 | PACU Rpt | | | | 6 | Given | | | | 2 | | | | | 1 | | | +----+---+ + + | | 1 | Anesthesia | | | | 6 | End | | | | 2 | | | | | 1 | | | +----+---+ + + +------+ | Meds | +------+ + + + | Name | Total | + + + | ropivacaine 0.5 % | 15 mL | + + + | midazolam | 2 mg | + + + | fentaNYL | 150 mcg | + + + | lidocaine 2% | 40 mg | + + + | propofol | 200 mg | + + + | rocuronium | 50 mg | + + + | ondansetron | 4 mg | + + + | neostigmine | 2 mg | + + + | glycopyrrolate | 0.4 mg | + + + | ceFAZolin (ANCEF) injection 2 g | 2,000 mg | + + + | dexamethasone | 4 mg | + + + | metoclopramide | 10 mg | + + + | PHENYLEPHrine | 750 mcg | + + + | lidocaine 4% LTA | 3 mL | + + + | custom medication (see comments) | 5,256.28 mcg | + + + | ropivacaine 0.2% peripheral nerve | Cannot be | | block ([facility], Single, I-Flow pump) | calculated | + + + | lactated Ringers IV | 1,300 mL | + + + + + | Name | + + | Insp Sevo | + + | Et Sevo | + + + + | No blood administrations on file. | + + +--------+ + + + | Type | Details | Placement | Removal | +--------+ + + + | Incisi | 08/31/16; Right; Lateral, | 08/31/16 0000 by | 08/31/16 1740 by | | on | Posterior, Anterior, Medial | Jania Tavera, | Lang Meehan RN | | | (arthroscopic portals x 2); | RN | | | | shoulder; 08/31/16; 1740 | | | +--------+ + + + | Periph | 08/31/16; 1006; Left; Hand; 20 g; | 08/31/16 1006 by | 08/31/16 1740 by | | eral | Lidocaine; Positive; 08/31/16; | Lang Meehan RN | Lang Meehan RN | | IV | 1740 | | | +--------+ + + + | Periph | 08/31/16; 1227; Kristina Jimenez MD; | 08/31/16 1227 by | 08/31/16 1740 by | | eral | Right; Interscalene; 08/31/16; | Kristina Jimenez MD | Lang Meehan RN | | Nerve | 1740 | | | | Block | | | | +--------+ + + + documented in this encounter Social History + +-------+ +--------+------+ | Tobacco [...] | + +--------+ + + + | ANE ETT | Routin | 09/07/2016 | | Results for this | | | e | 11:53 AM | | procedure are in the | | | | PDT | | results section. | + +--------+ + + + | PNB | Routin | 09/04/2016 | | Results for this | | | e | 1:23 PM | | procedure are in the | | | | PDT | | results section. | + +--------+ + + + | ANE ETT | Routin | 08/31/2016 | | | | | e | 1:07 PM | | | | | | PDT | | | + +--------+ + + + documented in this encounter Results ANE ETT (09/07/2016 11:53 AM PDT) + + + | Narrative | Performed At | + + + | Good Lee CRNA 08/31/2016 1:08 PM Procedure Reason for | | | Intubation: For surgical procedure, Location Performed: [place] , | | | Patient was preoxygenated Mask Ventilation Grade 1 - Ventilated by | | | mask Intubation Blade type: Anjelica , Blade size: 3, Atraumatic | | | laryngoscopy: Atraumatic Laryngoscopy, Intubation adjuncts: N/A , | | | Laryngoscopic view: Grade I, Fiberoptics used: N/A , Number of | | | Attempts: 1, Positive for EtCO2: Yes, Breath sounds: Bilateral and | | | equal ETT Ett Adult: Single-lumen cuffed ETT Size: 7 ETT | | | secured with: adhesive tape Depth at Lip: 23 Cm Narrative | | | Attending physically present | | + + + ANE PNB CATH (09/04/2016 1:23 PM PDT) + + + | Narrative | Performed At | + + + | Kristina Jimenez MD 08/31/2016 12:43 PM PNB Cath TYPE | | | Type: interscalene block Indication: ultrasound guided Side: right | | | Block indication: Have received and accepted request from attending | | | surgeon to offer advanced acute pain management services to the | | | patient Location: Pre-Op, The patient was identified, the site | | | marked, full PARQ Done PROCEDURE Pt. Position: Sitting Monitors | | | used: EKG, NIBP and SpO2 Supplimental O2 used draped in sterile | | | fashion ULTRASOUND Spread characteristics: full spread around | | | nerve/plexus Image: printed and placed in patients chart Guidance: | | | Needle tip visualized NEEDLE Needle type: Tuohy Gauge: 17 G | | | Length: 9 cm Needle insertion depth 4 cm Catheter at skin depth | | | 9 cm No, Aspiration was Negative for blood NERVE STIMULATOR | | | ASSESSMENT Ist attempt Complications: None Attending physically | | | present Attending: DAMIÁN RAZO Performed by | | | Resident KRISTINA JIMENEZ The patient was positioned seated in the | | | pre-op block bay. Supplemental O2 was given and monitors were | | | applied. After a pause, light sedation was administered with | | | midazolam and fentanyl. The patient tolerated the procedure well. No | | | complications. Meaningful contact was maintained throughout. | | + + + documented in this encounter Visit Diagnoses Not on filedocumented in this encounter Administered Medications + +--------+ + +------+------+ | Medication Order | MAR | Action | Dose | Rate | Site | | | Action | Date | | | | + +--------+ + +------+------+ | ceFAZolin (ANCEF) injection 2 g | Given | 09/01/19 | 2,000 mg | | | | 2 g, intravenous, PREPROCEDURE | | 17 1:03 | | | | | ONCE, 1 dose, Starting Mon | | PM PDT | | | | | 08/31/16 at 0956, Until Mon | | | | | | | 08/31/16 at 1303 | | | | | | + +--------+ + +------+------+ +---+---+ | | | +---+---+ + +-------+ +------+---+---+ | dexamethasone (DECADRON) | Given | 09/01/19 | 4 mg | | | | injection intravenous, | | 17 1:05 | | | | | INTRAPROCEDURE PRN, Starting Mon | | PM PDT | | | | | 08/31/16 at 1305, Until Mon | | | | | | | 08/31/16 at 1616 | | | | | | + +-------+ +------+---+---+ +---+---+ | | | +---+---+ + +-------+ +--------+---+---+ | fentaNYL citrate (PF) | Given | 09/01/19 | 50 mcg | | | | (SUBLIMAZE) injection | | 17 4:04 | | | | | INTRAPROCEDURE PRN, Starting Mon | | PM PDT | | | | | 08/31/16 at 1202, Until Mon | | | | | | | 08/31/16 at 1616 | | | | | | + +-------+ +--------+---+---+ +-------+ +--------+---+---+ | Given | 09/01/19 | 50 mcg | | | | | 17 3:32 | | | | | | PM PDT | | | | +-------+ +--------+---+---+ | Given | 09/01/19 | 50 mcg | | | | | 17 12:02 | | | | | | PM PDT | | | | +-------+ +--------+---+---+ +---+---+ | | | +---+---+ + +-------+ +--------+---+---+ | glycopyrrolate (DIANA) | Given | 09/01/19 | 0.4 mg | | | | injection INTRAPROCEDURE PRN, | | 17 4:00 | | | | | Starting Wed08/31/16 at 1600, | | PM PDT | | | | | Until Wed08/31/16 at 1616 | | | | | | + +-------+ +--------+---+---+ +---+---+ | | | +---+---+ + + + +---+---+---+ | lactated Ringers [...] | | | +---------+ + + +---+ +---+---+ | | | +---+---+ + +-------+ +------+---+---+ | lidocaine (LTA) 4 % topical | Given | 09/01/19 | 3 mL | | | | solution INTRAPROCEDURE PRN, | | 17 12:48 | | | | | Starting 08/31/16 at 1248, | | PM PDT | | | | | Until 08/31/16 at 1616 | | | | | | + +-------+ +------+---+---+ +---+---+ | | | +---+---+ + +-------+ +-------+---+---+ | lidocaine PF (XYLOCAINE MPF) 20 | Given | 09/01/19 | 40 mg | | | | mg/mL (2 %) injection | | 17 12:47 | | | | | INTRAPROCEDURE PRN, Starting Mon | | PM PDT | | | | | 08/31/16 at 1247, Until Mon | | | | | | | 08/31/16 at 1616 | | | | | | + +-------+ +-------+---+---+ +---+---+ | | | +---+---+ + +-------+ +-------+---+---+ | metoclopramide HCl (REGLAN) | Given | 09/01/19 | 10 mg | | | | injection intravenous, | | 17 1:05 | | | | | INTRAPROCEDURE PRN, Starting Mon | | PM PDT | | | | | 08/31/16 at 1305, Until Mon | | | | | | | 08/31/16 at 1616 | | | | | | + +-------+ +-------+---+---+ +---+---+ | | | +---+---+ + +-------+ +------+---+---+ | midazolam (VERSED) injection | Given | 09/01/19 | 1 mg | | | | INTRAPROCEDURE PRN, Starting Mon | | 17 12:06 | | | | | 08/31/16 at 1201, Until Mon | | PM PDT | | | | | 08/31/16 at 1616 | | | | | | + +-------+ +------+---+---+ +-------+ +------+---+---+ | Given | 09/01/19 | 1 mg | | | | | 17 12:01 | | | | | | PM PDT | | | | +-------+ +------+---+---+ +---+---+ | | | +---+---+ + +-------+ +------+---+---+ | neostigmine (PROSTIGMIN) | Given | 09/01/19 | 2 mg | | | | injection intravenous, | | 17 4:00 | | | | | INTRAPROCEDURE PRN, Starting Mon | | PM PDT | | | | | 08/31/16 at 1600, Until Mon | | | | | | | 08/31/16 at 1616 | | | | | | + +-------+ +------+---+---+ +---+---+ | | | +---+---+ + +-------+ +------+---+---+ | ondansetron (ZOFRAN) injection | Given | 09/01/19 | 4 mg | | | | INTRAPROCEDURE PRN, Starting Mon | | 17 4:00 | | | | | 08/31/16 at 1600, Until Mon | | PM PDT | | | | | 17 at 1616 | | | | | | + +-------+ +------+---+---+ +---+---+ | | | +---+---+ + + + + +---+---+ | OPTIME - CUSTOM INTRAPROCEDURE | Rate/Dos | 09/01/19 | 0.5 | | | | CONTINUOUS PRN, Starting Mon | e Change | 17 2:13 | mcg/kg/m | | | | 08/31/16 at 1339, Until Mon | | PM PDT | in | | | | 08/31/16 at 1616 | | | | | | + + + + +---+---+ + + + +---+---+ | Rate/Dose Change | 09/01/19 | 0.4 | | | | | 17 1:48 | mcg/kg/m | | | | | PM PDT | in | | | + + + +---+---+ | New Bag | 09/01/19 | 0.3 | | | | | 17 1:39 | mcg/kg/m | | | | | PM PDT | in | | | + + + +---+---+ +---+---+ | | | +---+---+ + +-------+ +---------+---+---+ | PHENYLEPHrine 100 mcg/mL IV | Given | 09/01/19 | 100 mcg | | | | syringe INTRAPROCEDURE PRN, | | 17 3:39 | | | | | Starting Wed08/31/16 at 1306, | | PM PDT | | | | | Until Wed08/31/16 at 1616 | | | | | | + +-------+ +---------+---+---+ +-------+ +---------+---+---+ | Given | 09/01/19 | 100 mcg | | | | | 17 3:19 | | | | | | PM PDT | | | | +-------+ +---------+---+---+ | Given | 09/01/19 | 100 mcg | | | | | 17 1:39 | | | | | | PM PDT | | | | +-------+ +---------+---+---+ +---+---+ | | | +---+---+ + +-------+ +--------+---+---+ | propofol INTRAPROCEDURE PRN, | Given | 09/01/19 | 200 mg | | | | Starting 08/31/16 at 1247, | | 17 12:47 | | | | | Until Wed08/31/16 at 1616 | | PM PDT | | | | + +-------+ +--------+---+---+ +---+---+ | | | +---+---+ + +-------+ +-------+---+---+ | rocuronium (ZEMURON) injection | Given | 09/01/19 | 50 mg | | | | INTRAPROCEDURE PRN, Starting Mon | | 17 12:47 | | | | | 08/31/16 at 1247, Until Mon | | PM PDT | | | | | 08/31/16 at 1616 | | | | | | + +-------+ +-------+---+---+ +---+---+ | | | +---+---+ + +-------+ +-------+---+---+ | ropivacaine (PF) (NAROPIN) | Given | 09/01/19 | 15 mL | | | | injection INTRAPROCEDURE PRN, | | 17 12:20 | | | | | Starting Wed08/31/16 at 1220, | | PM PDT | | | | | Until Wed08/31/16 at 1616 | | | | | | + +-------+ +-------+---+---+ +---+---+ | | | +---+---+ + +---------+ +---------+---------+---+ | ropivacaine 0.2% peripheral [...] +---------+ +---------+---------+---+ +---+---+ | | | +---+---+ documented in this encounter"
--- OUTSIDE RECORDS SUMMARY | ~2019-07-25 | XMS | Encounter Summary ---
Demographics + + + | Address | [address] | | | [place] [address] | + + + | Home Phone [...] Author + + + | Author | [facility] | + + + | Organization | [facility] | + + + | Address | Unknown | + + + | Phone | Unavailable | + + + Support + + +---------+ + | Name | Relationship | Address | Phone | + + +---------+ + | Azul Stubbs | ECON | Unknown | | + + +---------+ + Care Team Providers + +------+ + | Care Charging Machine Operator Name | Role | Phone | + +------+ + | Les Guzman PA-C | PCP | | + +------+ + Encounter Details +--------+ + + + + | Date | Type | Department | Care Team | Description | +--------+ + + + + | 08/31/ | Pharmacy | [facility] | | | | 2017 | Visit | [facility] | | | | | | [address] | | | | | | Mailcode: [place] | | | | | | [facility] and | | | | | | Healing, [address] | | | | | | [place], [place] | | | | | | [address] | | | | | | [phone] | | | +--------+ + + + [...]
--- OUTSIDE RECORDS SUMMARY | ~2019-07-25 | XMS | Encounter Summary ---
Demographics + + + | Address | [address] | | | [place] [address] | + + + | Home Phone | | + + + | Preferred Language | Unknown | + + + | Marital Status | Single | + + + | Congregation Affiliation | NRP | + + + | Race | White | + + + | Ethnic Group | Not or | + + + Author + + + | Author | [facility] | + + + | Organization | [facility] | + + + | Address | Unknown | + + + | Phone | Unavailable | + + + Support + + +---------+ + | Name | Relationship | Address | Phone | + + +---------+ + | Azul Stubbs | ECON | Unknown | | + + +---------+ + Care Team Providers + +------+ + | Care Medical Office Rep Name | Role | Phone | + +------+ + | Les Guzman PA-C | PCP | | + +------+ + Encounter Details +--------+ + + + + | Date | Type | Department | Care Team | Description | +--------+ + + + + | 05/ | MyChart | Orthopaedics | [facility] | RE: Loyd Pham - | | 2019 | Encounter | [facility] at [place] | MD Tiffanie [address] | [facility] | | | | for Health and | Ave [place], [place] | | | | | Healing [address] | [address] | | | | | Ave Mailcode: | [phone] | | | | | [facility] | | | | | | Health and Healing, | | | | | | | | | | | | Floor [place], [place] | | | | | | [address] | | | | | | [phone] | | | +--------+ + + + [...]
--- OUTSIDE RECORDS SUMMARY | ~2019-07-25 | XMS | Encounter Summary ---
Demographics + + + | Address | [address] | | | [place] [address] | + + + | Home Phone [...] Author + + + | Author | [facility] | + + + | Organization | [facility] | + + + | Address | Unknown | + + + | Phone | Unavailable | + + + Support + + +---------+ + | Name | Relationship | Address | Phone | + + +---------+ + | Azul Stubbs | ECON | Unknown | | + + +---------+ + Care Team Providers + +------+ + | Care Market Researcher Name | Role | Phone | + +------+ + | Les Guzman PA-C | PCP | | + +------+ + Encounter Details +--------+ + + + + | Date | Type | Department | Care Team | Description | +--------+ + + + + | 11/30/ | Telephone | Orthopaedics | Uzma Meadows | | | 2018 | | Faculty at [place] | MD Tiffanie [address] | | | | | for Health and | Ave [facility] [place] | | | | | Healing [address] | [address] | | | | | Ave Mailcode: | [phone] | | | | | [facility] | | | | | | Health and Healing, | | | | | | [facility] | | | | | | [place], [place] | | | | | | [address] | | | | | | [phone] | | | +--------+ + + + [...]
--- OUTSIDE RECORDS SUMMARY | ~2019-07-25 | XMS | Encounter Summary ---
Demographics + + + | Address | [address] | | | [place] [address] | + + + | Home Phone | | + + + | Preferred Language | Unknown | + + + | Marital Status | Single | + + + | Congregational Affiliation | NRP | + + + [...] Team Providers + +------+ + | Care Radar Technician Name | Role | Phone | [...] | | and | [address] | [place], [place] | | | | | tendon(s) of | [address] | [address] | | | | | the rotator | St | Phone: | | | | | cuff of | [place] | [phone] | | | | | right | [address] | Fax: | | | | | shoulder, | Phone: | [phone] | | | | | subsequent | [phone] | | | | | | encounter | Fax: | | | | | | Pain in | [phone] | | | | | | right [...] | 2017 | Visit | Faculty at [place] | NATHAN Moreno [address] [facility] | right rotator cuff | | | | for Health and | [address] | (Primary Dx) | | | | Healing [address] | [place], [place] | | | | | Ave Mailcode: | [address] | | | | | [facility] | [phone] | | | | | Health and Healing, | | | | | | [facility] | | | | | | Floor [place], [place] | | | | | | [address] | | | | | | [phone] | | | +--------+---------+ + + + [...] based on EMG- Dr Myra Suarez in [place] Family History/ Review of Systems: Family history reviewed per patient intake form. Ten point review of systems completed, pertinent positives include: none No current outpatient prescriptions on file prior to visit. No current facility-administered medications on file prior to visit. 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 Physical Exam: Vital Signs: AA+O. Normal resting [...] Tenderness Impingement positive Drop - Arm Cross-chest [place]'s Stability: Within normal limits except as noted. [...]
--- OUTSIDE RECORDS SUMMARY | ~2019-07-25 | XMS | Encounter Summary ---
Demographics + + + | Address | [address] | | | [place] [address] | + + + | Home Phone | | + + + | Preferred Language | Unknown | + + + | Marital Status | Single | + + + | Catholic Affiliation | NRP | + + [...] Team Providers + +------+ + | Care Assistant Inventory Manager Name | Role | Phone | + +------+ + | Les Guzman PA-C | PCP | | + +------+ + Reason for Visit +--------+ + | Reason | Comments | +--------+ + | Other | | +--------+ + Encounter Details +--------+ + + + + | Date | Type | Department | Care Team | Description | +--------+ + + + + | 10/26/ | Telephone | Orthopaedics | Uzma Meadows | Other | | 2017 | | Faculty at [place] | MD Colin Moreno | | | | | for Health and | [place] [facility] [place] | | | | | [address] | [address] | | | | | Amelia Mailcode: | [phone] | | | | | [facility] | | | | | | Health and Healing, | | | | | | [facility] | | | | | | [place], [place] | | | | | | [address] | | | | | | [phone] | | | +--------+ + + + [...]
--- OUTSIDE RECORDS SUMMARY | ~2019-07-25 | XMS | Encounter Summary ---
Demographics + + + | Address | [address] | | | [place] [address] | + + + | Home Phone | | + + + | Preferred Language | Unknown | + + + | Marital Status | Single | + + + | Latter Day Affiliation | NRP | + + + | Race | White | + + + | Ethnic Group | Not or | + + + Author + + + | Author | [facility] | + + + | Organization | [facility] | + + + | Address | Unknown | + + + | Phone | Unavailable | + + + Support + + +---------+ + | Name | Relationship | Address | Phone | + + +---------+ + | Azul Stubbs | ECON | Unknown | | + + +---------+ + Care Team Providers + +------+ + | Care Building Appraiser Name | Role | Phone | + [...] | | injury of | Gem | [address] | | | | | muscle(s) | Medical | [address] | | | | | and | [address] | [place], [place] | | | | | tendon(s) of | [address] | [address] | | | | | the rotator | St | Phone: | | | | | cuff of | [place] | [phone] | | | | | right | [address] | Fax: | | | | | shoulder, | Phone: | [phone] | | | | | subsequent | [phone] | | | | | | encounter | Fax: | | | | | | Pain in | [phone] | | | | | | right [...] | 2017 | Visit | Faculty at [place] | MD Tiffanie [address] | right rotator cuff | | | | for Health and | Ave [place], [place] | (Primary Dx) | | | | Healing [address] | [address] | | | | | Ave Mailcode: | [phone] | | | | | 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 Uzma Meadows MD [facility] [place] [facility] Department of Orthopaedics and Rehabilitation Division [...]
--- OUTSIDE RECORDS SUMMARY | ~2019-07-25 | XMS | Encounter Summary ---
Demographics + + + | Address | [address] | | | [place] [address] | + + + | Home Phone [...] Team Providers + +------+ + | Care Production Engineer Track Name | Role | Phone | + [...] | | | tear of | [address] | | | | | | right | [address] | | | | | | rotator cuff | [address] | | | | | | Procedures | Rd | | | | | | PHYSICAL | [place], [place] | | | | | | THERAPY | [address] | | | | | | REFERRAL | Phone: | | | | | | | [phone] | | | | | | | Fax: | | | | | | | [phone] | | +--------+--------+ + + + + [...] | | tear of | Gem | [address] | | | | | right | Medical | [address] | | | | | rotator cuff | [address] | [place], [place] | | | | | Procedures | [address] | [address] | | | | | REQUEST TO | St | Phone: | | | | | SURGERY | [place] [address] | [phone] | | | | | STUDIO COUCH FRAME BUILDER | [address] | Fax: | | | | | [place] [facility] | Phone: | [phone] | | | | | ARTHROSCOP,S | [phone] | | | | | | URG,W/ROTAT | Fax: | | | | | | CUFF REPR | [phone] | | | | | | [place] [facility] | | | | | | | ARTHROSCOP,P | | | | | | | ART | | | | | | | ACROMIOPLAS | | | | | | | W/CORACOACRO | | | | | | | M [place] [facility]DR | | | | | | | ARTHROSCOP,S | | | | | | | URG,CAPSULOR | | | | | | | RHAPHY [place] | | | | | | | [...] | 2017 | Visit | Faculty at [place] | NATHAN Moreno [address] | right rotator cuff | | | | for Health and | [address] | (Primary Dx) | | | | Healing [address] | [place], [place] | | | | | Ave Mailcode: | [address] | | | | | [facility] | [phone] | | | | | Health and Healing, | | | | | | Building | | | | | | Floor [place], [place] | | | | | | [address] | | | | | | [phone] | | | +--------+---------+ + + + [...]
--- OUTSIDE RECORDS SUMMARY | ~2019-07-25 | XMS | Encounter Summary ---
Demographics + + + | Address | [address] | | | [place] [address] | + + + | Home Phone [...] Author + + + | Author | [facility] | + + + | Organization | [facility] | + + + | Address | Unknown | + + + | Phone | Unavailable | + + + Support + + +---------+ + | Name | Relationship | Address | Phone | + + +---------+ + | Azul Stubbs | ECON | Unknown | | + + +---------+ + Care Team Providers + +------+ + | Care Steward/[employer] Name | Role | Phone | + [...] Therapy | Scapular | MD Gigi | [place] | | | | | dyskinesis | [address] | [facility] | | | | | Procedures | [place] | [address] | | | | | PHYSICAL | [address] | [address] | | | | | THERAPY | [place], | [place], [place] | | | | | REFERRAL | [place] | [address] | | | | | | [address] | Phone: | | | | | | Phone: | [phone] | | | | | | [phone] | Fax: | | | | | | Fax: | [phone] | | | | | | [phone] | | +--------+--------+ + + + + [...] | | | | | | | [address] | | | | | | | [address] | | | | | | | [facility] [place] | | | | | | | [address] | | | | | | | Phone: | | | | | | | [phone] | | | | | | | Fax: | | | | | | | [phone] | +--------+--------+ + + + + Encounter Details +--------+---------+ + + + | Date | Type | Department | Care Team | Description | +--------+---------+ + + + | 01/10/ | Office | Orthopaedics | Uzma Meadows | Scapular dyskinesis | | 2018 | Visit | Faculty at [place] | MD Tiffanie [address] | (Primary Dx); | | | | for Health and | Ave [facility] [place] | Complete tear of | | | | Healing [address] | [address] | right rotator cuff | | | | Ave Mailcode: | [phone] | | | | | [facility] | | | | | | Health and Healing, | | | | | | | | | | | | Floor [place], [place] | | | | | | [address] | | | | | | [phone] | | | +--------+---------+ + + + [...] of care as described. Uzma Meadows MD [facility] Department of Orthopaedics and Rehabilitation Division of [...]
[~2019-07-25 07:40] MED LIST changes: +FLONASE ALLERG9.9 ML NAS; +METHIMAZOLE5 MG PO; +TOPROL XL25 MG PO
--- NOTE | 2019-07-25 11:58 | NUR ---
07/25/19 1158 [facility] 1143-PT ARRIVES TO PACU ON 6 L VIA MASK. PT HAD GENERAL ANESTHESIA FOR THYROID LOBECTOMY. EMERGENCY TRACH KIT AT BEDSIDE. VSS. PT REACTIVE AND DENIES PAIN/NAUSEA. ORTHOPEDIC CODER AT BEDSIDE GIVES IV PAIN MEDICINE. PT FALLS ASLEEP EASILY BUT RESPONDS TO QUESTIONS WHEN ASKED. 1150-BP TAKEN ON LEFT ARM, SYSTOLIC PRESSURE 987. ORTHOPEDIC CODER AND MD NOTIFIED OF HYPOTENSION. PT HOB DECREASED BUT MAINTAINED AT 30 DEGREES PER MD ORDERS. BP RETAKEN, 93/56
--- NOTE | 2019-07-25 13:03 | NUR ---
PT TO [facility] VIA [place] [facility] ALERT AND ORIENTED VISITING ACTIVELY DRINKING COFFEE. PT STANDS TO TO TRANSFER TO BED STEADY ON HIS FEET. DENIES PAIN NAUSEA OR OTHER DISCOMFORTS. POST OP TEACHING COMPLETED PT VERBALIZES UNDERSTANDING.
--- NOTE | 2019-07-25 13:48 | NUR ---
PT CONTINUES TO BE ALERT AND TALKATIVE DENIES ANY DISCOMFORTS AT ALL. UPRIGHT IN BED AGREES TO CALL FOR ANY NEEDS
--- NOTE | 2019-07-25 14:30 | NUR ---
PT REMAINS AWAKE SITTING UP IN BED EATING A SMALL MEAL. DENIES ANY DISCOMFORTS OR NEEDS
[2019-07-25] MEDS ORDERED: PROAIR HFA8.5 GM INH (15:40)
[2019-07-25] MEDS ORDERED: ZYRTEC10 MG PO (15:41)
--- NOTE | 2019-07-25 15:41 | NUR ---
MED REC COMPLETE
--- NOTE | 2019-07-25 17:53 | NUR ---
DR MILLER AGREES FOR THIS PT IS OKAY AT THIS TIME
--- NOTE | 2019-07-25 18:07 | NUR ---
PATIENT SITTING UP IN BED WATCHING TV. CALL LIGHT IN REACH. NEW GOWN GIVEN. NO FURTHER NEEDS AT THIS TIME.
--- NOTE | 2019-07-25 18:36 | NUR ---
DR MILLER IN TO SEE PT DISCUSSES SURGERY AND PLAN GOING FORWARD, ALL QUESTIONS ANSWERED
--- NOTE | 2019-07-25 19:42 | NUR ---
walking in room, acds off at this time, will receonnect , toleratiang fluids well, hob elevatged, neck dressing cdi, no c/o pain at thist anca
--- NOTE | 2019-07-25 20:41 | NUR ---
MEDICATED WITH SCHEDULED TYLENOL, COOP, NECK DRESING CDI. SCDS OFF, PT WALKING IN ROOM AND WENT FOR A WALK AROUND HALLWAYS
--- NOTE | 2019-07-25 22:40 | NUR ---
WALKED HALLWAY SEVERAL TIMES EARLIER, TOLERAATED WELL, EYES CLOSED MID FRONTAL NECK AREA DRESSING INTACT
--- NOTE | 2019-07-26 01:10 | NUR ---
RESATING, EYES CLOSED, RESP EVEN, UNLABORED, WEARING DARKENING EYE MASK, NECK FRONT NECK DRESSING CDI, FLUIDS AND CALL LIGHT AT BEDSIDE
--- NOTE | 2019-07-26 02:26 | NUR ---
ASSUMED CARE OF THIS pt, REPORT RECEIVED FROM MELONIE FELICIANO, 2ND pt ASSESSMENT, VS, AND I+O's COMPLETE, pt RATES PAIN 5/10 IN NECK, BUT DENIES SOB OR TROUBLE SWALLOWING. PRN PAIN MEDS ADMINISTERED PER REQUEST/ORDER. pt REMINDED TO KEEP HOB ELEVATED, pt STATES UNDERSTANDING. NEW ICE WATER, CRACKERS, AND PUDDING GIVEN PER REQUEST. pt RESTING SAFELY IN BED WITH CALL LIGHT IN REACH DENIES FURTHER NEEDS AT THIS TIME.
--- NOTE | 2019-07-26 04:30 | NUR ---
pt RESTING SAFELY IN BED WITH EYES CLOSED, RR EVEN AND UNLABORED, CALL LIGHT IN REACH.
--- NOTE | 2019-07-26 06:07 | NUR ---
pt RESTED WELL THROUGHOUT THE NIGHT, SCHEDULED AND PRN PAIN MEDS GIVEN PER REQUEST/ORDER. HOB ELEVATED THROUGHOUT SHIFT, NO SWELLING, SOB, OR SWALLOWING ISSUES. AMBULATED IN RM AND HALLWAY IND, USES CALL LIGHT APPROPRIATELY. FOAM DRSNG OVER SURGICAL SITE CDI, UO QUANTITY SUFFICIENT, TOLERATING ORAL INTAKE WELL, NO C/O NAUSEA.
--- NOTE | 2019-07-26 07:27 | NUR ---
REPORT RECIEVED FROM NURSE MANAGER, CONNOR.
--- NOTE | 2019-07-26 07:55 | NUR ---
PATIENT SITTING UP IN BED. CALL LIGHT WITHIN REACH. NO OTHER NEEDS AT THIS TIME
--- NOTE | 2019-07-26 08:20 | NUR ---
PATIENT IS SITTING UP IN BED, FINISHED BREAKFAST. NECK DRESSING IS IN PLACE, NO DRAINAGE NOTED. PATIENT RATES NECK PAIN 1/10 AND DENIES NEES FOR MEDICATIONS. PATIENT DENIES NAUSEA, MODERATE APPETITE. NO AIRWAY DISTRESS IS NOTED, LUNG SOUNDS ARE CLEAR. PATIENT PLANS TO AMBULATE IN HALLWAY AFTER BREAKFAST.
--- NOTE | 2019-07-26 08:37 | NUR ---
PATIENT AMBULATING IN THE HALLWAY
--- NOTE | 2019-07-26 09:15 | NUR ---
Assessment completed. Pt is anxious to go home. LIves with his two children 14 and 17. Denies needs at home. States children and friends will assist him. Lives in a 1 story with hand rails. Does not use DME. 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 Awaiting Dr. Stanton to discharge him.
--- NOTE | 2019-07-26 09:40 | NUR ---
PATIENT SITTING UP IN BED. VITAL SIGNS AND I&O DONE. CALL LIGHT WITHIN REACH. NO OTHER NEEDS AT THIS TIME
--- NOTE | 2019-07-26 09:49 | NUR ---
PATIENT IS HOPING TO GO HOME TODAY.
[2019-07-26] MEDS ORDERED: TYLENOL EXTRA500 MG PO (11:19)
[2019-07-26] MEDS ORDERED: MOTRIN IB200 MG PO (11:20)
--- NOTE | 2019-07-26 11:32 | NUR ---
PATIENT SITTING UP IN BED. THE FINAL VITAL SIGNS WERE OBTAINED PRIOR TO DISCHARGE FROM THE UNIT.
--- NOTE | 2019-07-26 11:40 | NUR ---
PATIENT DISCHARGED TO HOME. PATIENT AMBULATED TO FRONT DOOR WITH ESCORT, SIGNIFICANT OTHER TO DRIVE PATIENT HOME.
--- NOTE | 2019-07-26 12:36 | NUR ---
PT IS ALERT, ORIENTED AND WANTING A CUP OF COFFEE. WAS ABLE TO SUPPLY AFTER CHECKING W/RN. PT FRIENDLY, EAGER TO VISIT AND PLANNING ON DC TODAY. PT SAT IN BED AND DR MILLER ENTERED. GAVE BLESSING, PT THANKED ME FOR STOPPING
--- NOTE | 2019-07-27 07:52 | OR ---
[facility] [address] [place], [place] [address] Signed DATE OF OPERATION: 07/25/2019 SURGEON: Loco Miller MD PREOPERATIVE DIAGNOSIS: Left lower lobe 4.3 cm toxic nodule. POSTOPERATIVE DIAGNOSES: 1. Left lower lobe 4.3 cm toxic nodule. 2. 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 PROCEDURE: Left thyroid lobectomy with isthmusectomy. ANESTHESIA: General endotracheal. PLASMA PROCESSING CENTRIFUGE OPERATOR: Loco Sparks. INDICATION: This 49-year-old white man is a patient of Chandra Sullivan and was noted on thyroid function testing to have a very low TSH of 0.005. He underwent a nuclear medicine scan for the thyroid demonstrating a 'HOT" 4.3 cm nodule of the left lower pole of the thyroid with complete suppression of remaining right lobe. Ultrasound confirmed the lesion to be solid. He does not have a goiter. He has mild sensation of swallowing issues, but not much. 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 The patient has been put on methimazole for the past week as well as beta-yesenia, metoprolol, though he does not have signs of systemic thyrotoxicosis otherwise. He is admitted at this time to undergo left thyroid lobectomy and isthmusectomy for therapeutic and diagnostic intent, possible total thyroidectomy should malignancy be demonstrated in the offending lesion. He understands as does his girlfriend the risks of bleeding, infection, recurrent laryngeal nerve injury, external laryngeal nerve injury, cosmetic deformity, and other unforeseen complications and wishes to proceed. FINDINGS: The nodule was firm and rubbery and incorporated most of the left thyroid lobe. It was excised completely including the isthmus. Electronically Signed By: LOCO MILLER MD 07/27/19 0752 PATIENT NAME: SOCRATES JIN OPERATIVE REPORT DATE OF : 72 REPORT #: [id number] PHYSICIAN: LOCO MILLER MD PCP: CHANDRA SULLIVAN MD REPORT IS CONFIDENTIAL AND NOT TO BE RELEASED WITHOUT AUTHORIZATION [facility] [address] [place], [place] [address] Signed Frozen pathology by Dr. 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 On that basis, left thyroid lobectomy with isthmusectomy was the complete operation at this point. The left recurrent laryngeal nerve was identified and unharmed. There were no complications. DESCRIPTION OF PROCEDURE: The patient was brought to the operating room, given a general endotracheal anesthetic. Preoperative antibiotic Ancef was given. Sequential compression device stockings were used. Heparin was not given. A mauro lounge position was maintained with a shoulder roll with slight neck extension. The neck and upper chest were prepared with a chlorhexidine solution and draped sterilely. A natural skin crease in the neck was used for incision. Incision was extended between the medial heads of the sternocleidomastoid muscle. Dissection was carried through the dermis sharply and electrocautery used to divide the platysma. Superior and inferior flaps were developed with blunt and electrocautery dissection. Gelpi retractors were placed and midline strap muscles were elevated and incised longitudinally in the avascular plane. The sternohyoid and sternothyroid muscles were dissected free and elevated away from the thyroid gland itself. Palpation revealed the nodule to be rather firm and yet rubbery. There was no direct extension of the thyroid lesion into the muscle itself. The loose areolar attachments laterally were freed with sharp dissection primarily. The upper pole was dissected free first. Using small right angle clamp, the individual vessels of the upper pole were isolated and ligated with 4-0 silk ties and on the dominant arterial branch, a clip was additionally applied. This allowed for full mobilization of the upper pole. Dissection was then taken inferiorly and with the usual method, the lobe was able to rotate toward the midline. The loose areolar attachments posteriorly were freed with sharp dissection. Inferior polar vessels were individually ligated with 4-0 silk ties and divided as well. Ultimately, the thyroid was rotated toward the midline. The loose areolar attachments posteriorly were freed with blunt dissection. Care was taken to avoid incorporation of the posterior elements including parathyroid glands and recurrent laryngeal nerve. With a small amount of electrocautery, the ligament of Crenshaw was divided freeing the lobe entirely from the trachea and the avascular plane, international representative of the isthmus dissected free similarly. Hemostats were applied to the isthmus remnant on the right side. The thyroid was detached. Photographs were taken. The lesion was bivalved on the back table and found to have a very dense calcific capsule, uncertain if there was invasion grossly. Frozen pathology was then obtained and later reported by Dr. 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 Final pathology is pending. Irrigation was undertaken in the bed of the resected thyroid on the left side. The recurrent laryngeal nerve was identified and photographs taken. Electronically Signed By: LOCO MILLER MD 07/27/19 0752 PATIENT NAME: SOCRATES JIN OPERATIVE REPORT DATE OF : 72 REPORT #: [id number] PHYSICIAN: LOCO MILLER MD PCP: CHANDRA SULLIVAN MD REPORT IS CONFIDENTIAL AND NOT TO BE RELEASED WITHOUT AUTHORIZATION [facility] [address] [place], [place] [address] Signed The strap muscles were reapproximated at the midline with interrupted 2-0 Vicryl, the platysmal layer similarly reapproximated and skin closed with running subcuticular 3-0 Vicryl. Steri-Strips were applied as was a silver sponge dressing. The patient tolerated the procedure well. Blood loss was well less than 20 mL in total. Sponge, needle, and instrument counts reported as correct x3. MD CHAPIN Wolf/MODL /[id number] cc: Chandra Sullivan MD Copies: ~ Electronically Signed By: LOCO MILLER MD 07/27/19 0752 PATIENT NAME: SOCRATES JIN OPERATIVE REPORT DATE OF : 72 REPORT #: [id number] PHYSICIAN: LOCO MILLER MD PCP: CHANDRA SULLIVAN MD REPORT IS CONFIDENTIAL AND NOT TO BE RELEASED WITHOUT AUTHORIZATION
--- NOTE | 2019-07-28 16:56 | PATH ---
[facility] [address] [place], [place] [address] Signed SPECIMEN(S): A LEFT THYROID LOBE ISTHMUS SPECIMEN SOURCE: A. LEFT THYROID LOBE ISTHMUS CLINICAL HISTORY: Thyroid nodule. Thyroid lobectomy. FROZEN SECTION DIAGNOSIS: A. 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 Calcification is present. (Dr. Emery, 07/25/19) Frozen section diagnoses called to Dr. Shipman at 11:16 hours. The Gross Description was prepared using a voice recognition system. The report was reviewed for accuracy; however, sound-alike word errors, addition and/or deletions may occur. If there is any question about this report, please contact Client Services. 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 - Non-neoplastic thyroid tissue is unremarkable. - Foci of dystrophic calcification are identified. TWK:freddy:C2NR MICROSCOPIC EXAMINATION: Histologic sections of all submitted blocks are examined by light microscopy. These findings, together with the gross examination, support the pathologic diagnosis. GROSS DESCRIPTION: The specimen, labeled "JM," and designated "left thyroid lobe, isthmus, thyroid nodule," per the requisition, is received in formalin and consists of a previously bisected nodular thyroid lobe (19 gram, 4.0 x 3.1 x 2.6 cm). Per the requisition: "Previously sectioned nodule which measures 4.0 x 3.0 x 1.4 cm and weighs 19.5 grams". There is a cassette containing remnant frozen tissue and is resubmitted in cassette (A1). The outer capsular surface is inked blue. The cut surface shows an encapsulated, brown-gambino, cystic nodule (3.1 x 3.0 x 2.2) with focal areas of calcification within the capsule of the nodule. The specimen is submitted entirely and sequentially in PATIENT NAME: SOCRATES JIN PATHOLOGY DATE OF : 72 REPORT #: [id number] PHYSICIAN: MELISSA PATHOLOGY PCP: LOUISA SULLIVAN MD REPORT IS CONFIDENTIAL AND NOT TO BE RELEASED WITHOUT AUTHORIZATION [facility] [address] [place] [address] Signed cassettes (A2-A18). Cassettes (A8-A16) are briefly decalcified in Immunocal prior to submission. AC (under the direct supervision of a pathologist) PERFORMING LABORATORY: The frozen section was performed at [facility] , [address] [place] [address] (CLIA# [id number]). Professional interpretation was performed by [facility], [facility] branch, [address] [place] [address] (CLIA# [id number]). The technical component was performed by [facility], [address] [place] [address] (Apprenticeship Training Representative: Radha Strauss MD; CLIA# [id number]). Diagnostician: Ariel Emery MD Pathologist Electronically Signed 07/28/2019 Copies: ~ PATIENT NAME: SOCRATES JIN PATHOLOGY DATE OF : 72 REPORT #: [id number] PHYSICIAN: MELISSA PATHOLOGY PCP: LOUISA SULLIVAN MD REPORT IS CONFIDENTIAL AND NOT TO BE RELEASED WITHOUT AUTHORIZATION
== END 2019-07-26 13:02 | disposition home or self-care (01) ==
LOC: DS 07:40 → MS 12:10 → DS 12:11 → MS 12:12
PROVIDERS: ADMIT Surgery
PROC: 0GTG0ZZ Resection of Left Thyroid Gland Lobe, Open Approach (ICD-10-PCS; principal; 2019-07-25 09:45)
DX: D34 Benign neoplasm of thyroid gland (principal); E05.90 Thyrotoxicosis, unspecified without thyrotoxic crisis or storm; E04.1 Nontoxic single thyroid nodule; I10 Essential (primary) hypertension; Z79.51 Long term (current) use of inhaled steroids
CPT/HCPCS: 00320; G0378; J0330; J0690; J1100; J1644; J1885; J2405; J2704; J3010; J7121

== ENCOUNTER 2019-12-19 21:27 | Emergency (ER) | payer BC ==
--- OUTSIDE RECORDS SUMMARY | ~2019-12-19 | XMS | Encounter Summary ---
Demographics + + + | Address | [address] | | | [place] [address] | + + + | Home Phone | | + + + | Preferred Language | Unknown | + + + | Marital Status | Single | + + + | Quaker Affiliation | NRP | + + + | Race | White | + + + | Ethnic Group | Not or | + + + Author + + + | Author | [facility] | + + + | Organization | [facility] | + + + | Address | Unknown | + + + | Phone | Unavailable | + + + Support + + +---------+ + | Name | Relationship | Address | Phone | + + +---------+ + | Azul Stubbs | ECON | Unknown | | + + +---------+ + Care Team Providers + +------+ + | Care Nurse'S Aides Teacher Name | Role | Phone | + +------+ + | Les Guzman PA-C | PCP | | + +------+ + Reason for Visit AUTH/CERT +--------+--------+ + + + + | Status | Reason | Specialty | Diagnoses / | Referred By | Referred To | | | | | Procedures | Contact | Contact | +--------+--------+ + + + + | | | | | | | +--------+--------+ + + + + Encounter Details +--------+---------+ + + + | Date | Type | Department | Care Team | Description | +--------+---------+ + + + | 08/31/ | Surgery | [facility] | Uzma Meadows | RIGHT SHOULDER | | 2017 | | [facility] | MD Tiffanie [address] | ARTHROSCOPY WITH | | | | and Healing Surgery | [place] | SUBACROMIAL | | | | Center Admitting | [phone] | DECOMPRESSION, | | | | Desk Located on the | [phone] | ROTATOR CUFF REPAIR | | | | 4th floor [address] | | VERSUS POSSIBLE | | | | [address] [place], | | SUPERIOR CAPSULAR | | | | [place] [address] | | RECONSTRUCTION AND | | | | | | POSSIBLE OPEN | | | | | | SUBPECTORAL BICEPS | | | | | | TENODESIS | +--------+---------+ + + + Social History + +-------+ [...] on file | | + + + documented as of this encounter Last Filed Vital Signs + + + + + | Vital Sign | Reading | Time Taken | Comments | + + + + + | Blood Pressure | 123/79 | 08/31/2016 5:30 PM | | | | | PDT | | + + + + + | Pulse | 96 | 08/31/2016 5:30 PM | | | | | PDT | | + + + + + | Temperature | 37 C (98.6 F) | 08/31/2016 5:30 PM | | | | | PDT | | + + + + + | Respiratory Rate | 19 | 08/31/2016 5:30 PM | | | | | PDT | | + + + + + | Oxygen Saturation | 94% | 08/31/2016 5:30 PM | | | | | PDT | | + + + + + | Inhaled Oxygen | - | - | | | Concentration | | | | + + + + + | Weight | 79.4 kg (175 lb) | 08/31/2016 9:51 AM | | | | | PDT | | + + + + + | Height | 170.2 cm (5' 7") | 08/31/2016 9:51 AM | | | | | PDT | | + + + + + | Body Mass Index | 27.41 | 08/31/2016 9:51 AM | | | | | PDT | | + + + + + documented in this encounter Discharge Instructions Instructions Lang Meehan RN - 08/31/2016 Nursing Disc harge Instructions General discharge instructions for same-day procedure patients: Remember that you are under the influence of medication. Do not stay alone. A responsible person should be with you. Do not drive, drink alcohol or make important personal or business decision for 24 hours . Resume normal activity and return to work when advised by your Doctor. Pain Management: Your last oral pain medication was given at: Please follow your Doctor's instructions on the medication bottle. Do not take pain medication on an empty stomach, as this may cause nausea and vomiting. Do not drive or drink alcohol while on narcotic pain medication. If you received a Peripheral Nerve Block, please take pain medication when numbing begin s to wear off or when you go to bed. This will allow for pain coverage when your nerve bloc k wears off during the night. Diet: If you do not experience nausea or vomiting resume your regular diet. Eat lightly and av oid large, high fat or highly spiced meals for 24-48 hours. Constipation can be a side effect of narcotic pain medication. Take stool softeners, in crease dietary fiber and drink plenty of water to prevent this. Wound/Dressing/Drain Care: Change your dressing according to your Doctor's instructions. You may place a bandaid o n incisional site if needed. Change bandaid daily. Call your Doctor if there is excessive bleeding, redness, swelling or drainage at the o perative site. Follow up appointment: IV Site Care Instructions: Monitor IV site for pain, redness, swelling and/or drainage. If present, call your Doct or immediately. Minor redness and/;or tenderness may be treated with warm, moist compresses for 24-48 ho urs, If the area is still red and/or tender after this, notify your Doctor. Call 911 if you experience difficulty breathing or unusual shortness of breath. Additional Home Care Instructions: A very small number of patients may have trouble voiding (emptying your bladder) after anes thesia. If you were unable to void after surgery at the surgery center and greater than 8 h ours at home has passed, still unable to void you need to visit the Emergency room. Scopolamine patch: If you go home with a scopolamine patch watch for blurry vision, metalli c taste, balance issues, irritability, drooling or dry mouth, please remove the patch, wash ing your hands with soap and water after removing. Call Doctor if it does not go away. After arriving home you may receive a patient satisfaction survey from "[employer]". We w adolfo appreciate your feedback on the survey to help us provide excellent service to you and your families. Prevention of DVT (deep vein thrombosis) 1. Get up and move 2. Do ankle exercises Signs and symptoms of DVT 1. Redness, Swelling, warmth and tenderness in calf. 2. Sharp pain in calf when you point your toes towards you body. documented in this encounter H&P Notes Jose Gaming MD - 08/31/2016 12:11 PM PDTFormatting of this note might be different fro m the original. Pre-Operative History and Physical Loyd Pham presents for right shoulder arthroscopy, rotator cuff repair. He denies any changes to his medical history since he saw us last in clinic. Symptoms are unchanged to right shoulder. Prior to Admission Medications Prescriptions ibuprofen (ADVIL) 200 mg oral tablet Sig: Take 200 mg by mouth every six hours as needed. Facility-Administered Medications: None No Known Allergies No past medical history on file. ROS: negative Exam: BP 131/86 | Pulse 82 | Temp 36.3 C (97.3 F) | RR 15 | Ht 1.702 m (5' 7") | Wt 79.4 kg ( 175 lb) | SpO2 100% | BMI 27.41 kg/(m^2) Heart: regular and no murmur Lungs: Lungs clear to auscultation. RIGHT UPPER EXTREMITY: Inspection: unremarkable Motor: makes OK sign, crosses and abducts fingers, gives thumbs up, fires wrist extensors, fires wrist flexors Sensory: grossly intact to light touch, median, ulnar, radial, axillary Vascular: palpable radial, digits warm, well perfused, capillary refill <2 sec Impression/Diagnosis: Right shoulder full thickness retracted tear of supra and part of inf ra. Surgical Plan Right shoulder arthroscopic rotator cuff repair possible superior capsular re pair, with open subpectoral biceps tenodesis. PARQ Reviewed, consent on chart. documented in thi s encounter Procedure Notes Uzma Meadows MD - 08/31/2016 5:48 AM PDTAssociated Order(s): PROCEDURE NOTEOHSU Or thopaedic Sports Surgery Operative Report Date of surgery: 08/31/2016 Preoperative diagnosis: right shoulder rotator cuff tear Postoperative diagnosis: same Procedure: right shoulder arthroscopy with rotator cuff repair (supraspinatus and infraspin atus) and subacromial decompression Surgeon: Uzma Meadows MD Clinical Resource Coordinator: Jose Gaming MD Implants: Arthrex 5.5 mm PEEK Corkscrew anchors x 3, Arthrex 4.75 mm PEEK Swivelock anchors x 1 Anesthesia: general plus interscalene nerve block EBL: 5 ml Tourniquet time: none Drains: none Complications: none apparent Disposition: stable to pacu Description of indications and procedure: Mr. Pham is a 46 y/o man who injured his right shoulder 03/06/2016 when he slipped on the ice at work. Initially, he was thought to have a nerve injury, but when he noticed no improvement over the course of several months, further workup revealed a massive, retracted rotator cuff tear. After a discussion of the risks, b enefits, and alternatives of surgery, he provided informed consent. The patient was identified in the preoperative holding area, the operative site was marked. The patient was then brought to the operating room, where general anesthesia was induced. An SCD was placed on each leg. The right upper extremity was prepped and draped in the usu al standard fashion. The patient received 2g Ancef for infectious prophylaxis. A time out was carried out to confirm the side and site of surgery, as well as the administration of an tibiotics and availability of necessary equipment. EUA: FF to 170, ABD to 160, ER to 65 at side, IR 90 at 90 deg Stability: anterior stable, posterior stable Diagnostic arthroscopy: The posterior portal was created, and the arthroscope was introduced into the joint. Diagnostic arthroscopy revealed scuffing of the humeral head articular surface superiorly. The glenoid labrum was notable for minimal fraying. The biceps tendon was intact, and its insertion on the superior labrum was intact. Examination of the rotator cuff showed full-thickness, massively retracted tear of supraspi natus and infraspinatus. An anterior working portal was created using spinal needle localization. Subacromial decompression: The scope was transferred to the subacromial space. The bursitis was debrided. The anterola teral acromial edge was exposed using the electrocautery, and no significant spurring was en countered. The CA ligament was significantly frayed. The bursa was debrided using a combina tion of shaver and cautery. Rotator cuff repair: The rotator cuff tear was assessed from the anterolateral and midlateral working portals. T he edges were debrided using the shaver, and any soft tissue remaining on the tuberosity was debrided. The tear exhibited an L-shaped pattern, and margin convergence was performed with #2 Fiberwire suture x 2. The tear was then repaired to the tuberosity in modified double-ro w fashion: 3 total medial row Arthrex PEEK 5.5 mm Corkscrew anchors were placed, and sutures were passed using a Scorpion. Care was taken to avoid injury to the biceps tendon with sutu re passage. These sutures were tied from posterior to anterior, making sure to avoid dog ea rs at the edges. The medial row sutures were then drawn to one lateral row Arthrex 4.75 mm P [place] Swivelock anchors in knotless fashion, because this was the only area of tendon that was redundant enough to allow footprint compression. Closure: The arthroscope was removed from the joint, and the incisions were closed with 2-0 Vicryl and 3-0 Biosyn suture. The incisions were covered with Dermabond, gauze, and abd pa ds. These were secured with tape, and the operative extremity was placed into a shoulder im mobilizer. Postoperative plan: Discharge home when comfortable and medically stable. Dangling and table-top ROM only for 6 weeks. Sling at all times except for showering, phys ical therapy, and elbow/wrist ROM as tolerated. No lifting > 1 lb, pushing, or pulling. Be gin formal PT when soft tissues healed. Remove dressings in 3 days. Okay to shower at that point if wounds dry. Return to clinic in 10-14 days for wound check and suture removal. In accordance with Medicare guidelines, I attest that I was present and participated in the entire case. Uzma Meadows MD [facility] Department of Orthopaedics and Rehabilitation Division of Sports Medicine documented in thi s encounter Plan of Treatment Not on filedocumented as of this encounter Procedures + +--------+ + + + | Procedure Name | Priori | Date/Time | Associated Diagnosis | Comments | | | ty | | | | + +--------+ + + + | PROCEDURE NOTE | Routin | 09/03/2016 | | Results for this | | | e | 8:00 PM | | procedure are in the | | | | PDT | | results section. | + +--------+ + + + | PROCEDURE NOTE | Routin | 08/31/2016 | | Results for this | | | e | 6:02 PM | | procedure are in the | | | | PDT | | results section. | + +--------+ + + + | ARTHROSCOPIC | Electi | 08/31/2016 | [id number] | | | SUBACROMIAL | ve | 12:38 PM | | | | DECOMPRESSION | Surgic | PDT | | | | | al | | | | + +--------+ + + + | INTRAPROCEDURE | Routin | 08/31/2016 | | Results for this | | IMAGING | e | 9:56 AM | | procedure are in the | | | | PDT | | results section. | + +--------+ + + + | CARDIOLOGY | | 08/31/2016 | | Results for this | | | | 12:00 AM | | procedure are in the | | | | PDT | | results section. | + +--------+ + + + documented in this encounter Results PROCEDURE NOTE (09/03/2016 8:00 PM PDT)PROCEDURE NOTE (08/31/2016 6:02 PM PDT) + + + | Narrative | Performed At | + + + | Uzma Meadows MD 08/31/2016 6:02 PM [facility] Orthopaedic | | | Sports Surgery Operative Report Date of surgery: 08/31/2016 | | | Preoperative diagnosis: right shoulder rotator cuff tear | | | Postoperative diagnosis: same Procedure: right shoulder | | | arthroscopy with rotator cuff repair (supraspinatus and | | | infraspinatus) and subacromial decompression Surgeon: Uzma | | | MD Abdiel Clinical Resource Coordinator: Jose Gaming MD Implants: Arthrex 5.5 mm | | | PEEK Corkscrew anchors x 3, Arthrex 4.75 mm PEEK Swivelock anchors x | | | 1 Anesthesia: general plus interscalene nerve block EBL: 5 ml | | | Tourniquet time: none Drains: none Complications: none apparent | | | Disposition: stable to pacu Description of indications and | | | procedure: Mr. Pham is a 46 y/o man who injured his right | | | shoulder 03/06/2016 when he slipped on the ice at work. Initially, | | | he was thought to have a nerve injury, but when he noticed no | | | improvement over the course of several months, further workup | | | revealed a massive, retracted rotator cuff tear. After a | | | discussion of the risks, benefits, and alternatives of surgery, he | | | provided informed consent. The patient was identified in the | | | preoperative holding area, the operative site was marked. The | | | patient was then brought to the operating room, where general | | | anesthesia was induced. An SCD was placed on each leg. The right | | | upper extremity was prepped and draped in the usual standard | | | fashion. The patient received 2g Ancef for infectious prophylaxis. | | | A time out was carried out to confirm the side and site of | | | surgery, as well as the administration of antibiotics and | | | availability of necessary equipment. EUA: FF to 170, ABD to | | | 160, ER to 65 at side, IR 90 at 90 deg Stability: anterior stable, | | | posterior stable Diagnostic arthroscopy: The posterior portal | | | was created, and the arthroscope was introduced into the joint. | | | Diagnostic arthroscopy revealed scuffing of the humeral head | | | articular surface superiorly. The glenoid labrum was notable for | | | minimal fraying. The biceps tendon was intact, and its insertion on | | | the superior labrum was intact. Examination of the rotator cuff | | | showed full-thickness, massively retracted tear of supraspinatus and | | | infraspinatus. An anterior working portal was created using | | | spinal needle localization. Subacromial decompression: The | | | scope was transferred to the subacromial space. The bursitis was | | | debrided. The anterolateral acromial edge was exposed using the | | | electrocautery, and no significant spurring was encountered. The CA | | | ligament was significantly frayed. The bursa was debrided using a | | | combination of shaver and cautery. Rotator cuff repair: The | | | rotator cuff tear was assessed from the anterolateral and midlateral | | | working portals. The edges were debrided using the shaver, and any | | | soft tissue remaining on the tuberosity was debrided. The tear | | | exhibited an L-shaped pattern, and margin convergence was performed | | | with #2 Fiberwire suture x 2. The tear was then repaired to the | | | tuberosity in modified double-row fashion: 3 total medial row | | | Arthrex PEEK 5.5 mm Corkscrew anchors were placed, and sutures were | | | passed using a Scorpion. Care was taken to avoid injury to the | | | biceps tendon with suture passage. These sutures were tied from | | | posterior to anterior, making sure to avoid dog ears at the edges. | | | The medial row sutures were then drawn to one lateral row Arthrex | | | 4.75 mm PEEK Swivelock anchors in knotless fashion, because this was | | | the only area of tendon that was redundant enough to allow | | | footprint compression. Closure: The arthroscope was removed from | | | the joint, and the incisions were closed with 2-0 Vicryl and 3-0 | | | Biosyn suture. The incisions were covered with Dermabond, gauze, | | | and abd pads. These were secured with tape, and the operative | | | extremity was placed into a shoulder immobilizer. | | | Postoperative plan: Discharge home when comfortable and medically | | | stable. Dangling and table-top ROM only for 6 weeks. Sling at all | | | times except for showering, physical therapy, and elbow/wrist ROM as | | | tolerated. No lifting > 1 lb, pushing, or pulling. Begin formal | | | PT when soft tissues healed. Remove dressings in 3 days. | | | Okay to shower at that point if wounds dry. Return to clinic in | | | 10-14 days for wound check and suture removal. In | | | accordance with Medicare guidelines, I attest that I was present and | | | participated in the entire case. Uzma Meadows, | | | [facility] Department of Orthopaedics | | | and Rehabilitation Division of Sports Medicine | | + + + INTRAPROCEDURE IMAGING (08/31/2016 9:56 AM PDT) + + | Specimen | + + | | + + + + + | Narrative | Performed At | + + + | See admission or procedure notes for details of any intraprocedure | | | images obtained. | | + + + CARDIOLOGY (08/31/2016 12:00 AM PDT) + + + | Narrative | Performed At | + + + | | | + + + documented in this encounter Visit Diagnoses Not on filedocumented in this encounter Administered Medications + +--------+ +--------+------+------+ | Medication Order | MAR | Action | Dose | Rate | Site | | | Action | Date | | | | + +--------+ +--------+------+------+ | acetaminophen (TYLENOL) tablet | Given | 09/01/19 | 975 mg | | | | 1,000 mg 1,000 mg, oral, | | 17 11:40 | | | | | PREPROCEDURE ONCE, 1 dose, | | AM PDT | | | | | Starting Wed08/31/16 at 0956, | | | | | | | Until Wed08/31/16 at 1140 | | | | | | + +--------+ +--------+------+------+ +---+---+ | | | +---+---+ + +-------+ +--------+---+---+ | celecoxib (CELEBREX) capsule | Given | 09/01/19 | 400 mg | | | | 400 mg 400 mg, oral, | | 17 11:41 | | | | | PREPROCEDURE ONCE, 1 dose, | | AM PDT | | | | | Starting 08/31/16 at 0956, | | | | | | | Until 08/31/16 at 1141 | | | | | | + +-------+ +--------+---+---+ +---+---+ | | | +---+---+ + +-------+ +---+---+ + | EPI 1:1000-LR injection | Given | 09/01/19 | | | Right | | INTRAPROCEDURE PRN, Starting Wed | | 17 3:39 | | | Shoulder | | 08/31/16 at 1318, Until Mon | | PM PDT | | | | | 08/31/16 at 1616 | | | | | | + +-------+ +---+---+ + +-------+ +---+---+ + | Given | 09/01/19 | | | Right | | | 17 2:36 | | | Shoulder | | | PM PDT | | | | +-------+ +---+---+ + | Given | 09/01/19 | | | Right | | | 17 1:19 | | | Shoulder | | | PM PDT | | | | +-------+ +---+---+ + + +---+ | | | + +---+ | fentaNYL (SUBLIMAZE) injection | | | 50 mcg 50 mcg, intravenous, | | | POSTPROCEDURE PRN, 4 doses, | | | Starting 08/31/16 at 1309, | | | Until 08/31/16 at 2354, severe | | | pain while in Phase I Recovery | | + +---+ | | | + +---+ | HYDROmorphone (DILAUDID) | | | injection 0.2-0.5 mg 0.2-0.5 mg, | | | intravenous, POSTPROCEDURE PRN, | | | Starting 08/31/16 at 1309, | | | Until Wed08/31/16 at 2354, | | | moderate pain while in Phase I | | | Recovery | | + +---+ | | | + +---+ + + + +---+---+---+ | lactated Ringers IV 10 mL/hr, | given by | 09/01/19 | | | | | intravenous, PROCEDURE | | 17 3:57 | | | | | CONTINUOUS, Starting Wed08/31/16 | anesthes | PM PDT | | | | | at 1000, Until Wed08/31/16 at | iology | | | | | | 2354 | | | | | | + + + +---+---+---+ +---------+ + + +---+ | New Bag | 09/01/19 | | | | | | 17 2:13 | | | | | | PM PDT | | | | +---------+ + + +---+ | New Bag | 09/01/19 | 10 mL/hr | 10 mL/hr | | | | 17 10:07 | | | | | | AM PDT | | | | +---------+ + + +---+ + +---+ | | | + +---+ | lactated Ringers IV 500 mL, | | | intravenous, POSTPROCEDURE PRN, 1 | | | dose, Starting 08/31/16 at | | | 1309, Until Wed08/31/16 at 2354, | | | nausea/vomiting due to | | | dehydration | | + +---+ | | | + +---+ | lidocaine (XYLOCAINE) 10 mg/mL | | | (1 %) injection subcutaneous, | | | PREPROCEDURE PRN, Starting Mon | | | 08/31/16 at 0956, Until Mon | | | 08/31/16 at 2354, IV start | | + +---+ | | | + +---+ | naloxone (NARCAN) injection | | | intravenous, POSTPROCEDURE PRN, | | | Starting Wed08/31/16 at 1309, | | | Until Wed08/31/16 at 2354, | | | hypopnea | | + +---+ | | | + +---+ | prochlorperazine (COMPAZINE) | | | injection 2.5 mg 2.5 mg, | | | intravenous, EVERY 6 HOURS | | | NEEDED, 2 doses, Starting Mon | | | 08/31/16 at 1309, Until Mon | | | 08/31/16 at 2354, nausea/vomiting, | | | first line | | + +---+ | | | + +---+ + +---------+ +---------+---------+---+ | ropivacaine 0.2% peripheral | New Bag | 09/01/19 | 6 mL/hr | 6 mL/hr | | | nerve block ([facility], Single, I-Flow | | 17 4:47 | | | | | pump) 6 mL/hr, injection, | | PM PDT | | | | | CONTINUOUS, Starting 08/31/16 | | | | | | | at 1315, Until Wed08/31/16 at | | | | | | | 2354 | | | | | | + +---------+ +---------+---------+---+ +---+---+ | | | +---+---+ + + + +---------+---+ + | scopolamine (TRANSDERM-SCOPE) | Applied | 09/01/19 | 1 patch | | Left | | 1.5 mg (1 mg over 3 days) 1 patch | Patch | 17 12:33 | | | Post | | 1 patch, transdermal, ONCE, 1 | | PM PDT | | | Auricula | | dose, 08/31/16 at 1300 | | | | | r | + + + +---------+---+ + +---+---+ | | | +---+---+ documented in this encounter
--- OUTSIDE RECORDS SUMMARY | ~2019-12-19 | XMS | Encounter Summary ---
Demographics + + + | Address | [address] | | | [place] [address] | + + + | Home Phone | | + + + | Preferred Language | Unknown | + + + | Marital Status | Single | + + + | Restorationist Affiliation | NRP | + + + | Race | White | + + + | Ethnic Group | Not or | + + + Author + + + | Author | [facility] | + + + | Organization | [facility] | + + + | Address | Unknown | + + + | Phone | Unavailable | + + + Support + + +---------+ + | Name | Relationship | Address | Phone | + + +---------+ + | Azul Stubbs | ECON | Unknown | | + + +---------+ + Care Team Providers + +------+ + | Care Nursery School Teacher Name | Role | Phone | + +------+ + | Les Guzman MD | PCP | | + +------+ + Reason for Referral Physical Therapy (Routine) +--------+--------+ + + + + | Status | Reason | Specialty | Diagnoses / | Referred By | Referred To | | | | | Procedures | Contact | Contact | +--------+--------+ + + + + | Closed | | Physical | Diagnoses | Abdiel, | [facility] | | | | Therapy | Complete | Uzma | [place] | | | | | tear of | MD [address] | [facility] | | | | | right | [address] | [address] | | | | | rotator cuff | [place] | Marcial | | | | | Procedures | [id number] | [place] | | | | | PHYSICAL | Phone: | [phone] | | | | | THERAPY | [phone] | Phone: | | | | | REFERRAL | Fax: | [phone] | | | | | | [phone] | Fax: | | | | | | | [phone] | +--------+--------+ + + + + PROC - Outpatient Surgery (Urgent) +--------+--------+ + + + + | Status | Reason | Specialty | Diagnoses / | Referred By | Referred To | | | | | Procedures | Contact | Contact | +--------+--------+ + + + + | Closed | | Orthopedics | Diagnoses | Thomas, | Abdiel, | | | | | Complete | Les Moreno MD | Uzma Moreno, | | | | | tear of | [place] | [address] | | | | | right | Medical | [address] | | | | | rotator cuff | [address] | [place], [place] | | | | | Procedures | [address] | [address] | | | | | REQUEST TO | St | Phone: | | | | | SURGERY | [place] | [phone] | | | | | E[employer]ATOR [employer] | [address] | Fax: | | | | | [place] [facility] | Phone: | [phone] | | | | | ARTHROSCOP,S | [phone] | | | | | | URG,W/ROTAT | Fax: | | | | | | CUFF REPR | [phone] | | | | | | [place] [facility] | | | | | | | ARTHROSCOP,P | | | | | | | ART | | | | | | | ACROMIOPLAS | | | | | | | W/CORACOACRO | | | | | | | M [place] [facility] | | | | | | | ARTHROSCOP,S | | | | | | | URG,CAPSULOR | | | | | | | RHAPHY [place] | | | | | | | REPAIR | | | | | | | BICEPS LONG | | | | | | | TENDON | | | +--------+--------+ + + + + Reason for Visit + + + | Reason | Comments | + + + | New patient | | | consultation | | + + + Intake Referral (Urgent) +--------+--------+ + + + + | Status | Reason | Specialty | Diagnoses / | Referred By | Referred To | | | | | Procedures | Contact | Contact | +--------+--------+ + + + + | Closed | | Orthopedics | Diagnoses | Thomas, | Abdiel, | | | | | Unspecified | Les Moreno MD | Uzma Moreno, | | | | | injury of | [place] | [address] | | | | | muscle(s) | Medical | [address] | | | | | and | [place] [address] | [place], [place] | | | | | tendon(s) of | [address] [place] | [address] | | | | | the rotator | St | Phone: | | | | | cuff of | [place], [place] | [phone] | | | | | right | [address] | Fax: | | | | | shoulder, | Phone: | [phone] | | | | | subsequent | [phone] | | | | | | encounter | Fax: | | | | | | Pain in | [phone] | | | | | | right | | | | | | | shoulder | | | +--------+--------+ + + + + Encounter Details +--------+---------+ + + + | Date | Type | Department | Care Team | Description | +--------+---------+ + + + | 07/07/ | Office | Orthopaedics | Uzma Meadows | Complete tear of | | 2017 | Visit | [facility] [place] | M, MD [address] | right rotator cuff | | | | for Health and | [facility] [place] | (Primary Dx) | | | | Healing [address] | [address] | | | | | Ave [place] for | [phone] | | | | | Health and Healing, | | | | | | Building | | | | | | Floor [place], [place] | | | | | | [address] | | | | | | [phone] | | | +--------+---------+ + + + Social History [...] + + +---------+ + | Yes | | | | + + +---------+ + + + [...] + + + | Blood Pressure | 146/98 | 07/07/2016 8:55 AM | | | | | PDT | | + + + + + | Pulse | 75 | 07/07/2016 8:55 AM | | | | | PDT | | + + + + + | Temperature | - | - | | + + + + + | Respiratory Rate | - | - | | + + + + + | Oxygen Saturation | - | - | | + + + + + | Inhaled Oxygen | - | - | | | Concentration | | | | + + + + + | Weight | 79.4 kg (175 lb) | 07/07/2016 8:55 AM | | | | | PDT | | + + + + + | Height | 170.2 cm (5' 7") | 07/07/2016 8:55 AM | | | | | PDT | | + + + + + | Body Mass Index | 27.41 | 07/07/2016 8:55 AM | | | | | PDT | | + + + + + documented in this encounter Progress Notes Uzma Meadows MD - 07/07/2016 9:20 AM PDT Loyd Pham is a 46 y.o. right hand dominant male complaining of right shoulder pain and weakness. Referred by Jones King PA-C for orthopedic consultation and evaluation. History of present complaint: First noticed: Result of: fell on ice at work; thinks he reached back to land, and hand slipped, as well, landed on right shoulder. Initial presentation thought to be nerve injury, saw nerve specia list, attempted return to work. After a couple months with no improvement, got MRI. Location: lateral. Pain: Average pain level 1 out of 10 at rest and 4/10 during maximal activity. The pain is characterized as varying with activity, stiffness, weakness and interfering wit h sleep. Symptoms are exacerbated by overhead activity. Symptoms improve with rest. Activity level: Moderate activity (brisk walking for fitness, light swimming/cycling for fu n, weekend warrior athletics, etc.) Sport of choice: skiing. Treatments for injury/condition have included: PT and home exercise program prior to MRI. PMH: History of bleeding or clotting disorders? none History of problems with anesthesia? none History of infection? none PSH: knee surgery at age 17 (meniscus?) Past Surgical History Procedure Laterality Date Knee surgery left FH: History of bleeding or clotting disorders? none History of shoulder problems/arthritis? None known SH: Loyd is father of 2 kids (11 and 14), employed as mail handler assistant. Tobacco: chews tobacco, no smoking. EtOH: 2-3/week. Recreational drug use: none. Social History Social History Marital status: Single Spouse name: N/A Number of children: N/A Years of education: N/A Occupational History Not on file. Social History Main Topics Smoking status: Never Smoker Smokeless tobacco: Not on file Alcohol use Yes Drug use: No Sexual activity: Not on file Other Topics Concern Not on file Social History Narrative No narrative on file Meds: Naproxen previously Current Outpatient Prescriptions on File Prior to Visit Medication Sig Dispense Refill ibuprofen (ADVIL) 200 mg oral tablet Take 200 mg by mouth every six hours as needed. No current facility-administered medications on file prior to visit. Allergies: No Known Allergies ROS: Ten point review of systems completed, pertinent positives include: none Physical Exam: Vital Signs: There is no height or weight on file to calculate BMI. Height: Ht on (07/01/2016) 1.727 m (5' 8") Weight: Wt on (07/01/2016) 78.5 kg (173 lb) Mental Status: Alert, awake, oriented and cooperative. Respiratory: Breathing non-labored. Normal rate and leigh Cardiovascular: regular rate and rhythm Skin: clean and clear Posture: normal Cervical Spine: Right Left Motion ROM full and symmetric without pain ROM full and symmetric without pain Tenderness neg neg Spurling neg neg Sensory exam Sensation intact to light touch in axillary, median, ulnar and radial distrib ution Sensation intact to light touch in axillary, median, ulnar and radial distribution Motor exam Motor intact to a-ok, thumbs-up, finger spread, wrist extension, elbow flexion and elbow extension Motor intact to a-ok, thumbs-up, finger spread, wrist extension, elbow flexion and elbow extension Vascular status: 2+, radial and ulnar pulses Observation: Right Left Atrophy/Asymmetry atrophy in supraspinatus and infraspinatus fossae None Scapular Kinetics shrug with ROM normal Motion: Within normal limits except as noted. Right Left Active Passive Active Passive Scapular plane 90 150 180 ER @ side 60 60 IR @ side T8 T4 Strength: Right Left Supraspinatus 4-/5 5/5 Infraspinatus 4/5 5/5 Subscapularis intact lift-off intact lift-off Biceps 5/5 5/5 Deltoid not tested not tested Testing: Right Left Tenderness None None Impingement + Neer neg Drop - Arm ++ neg Cross-chest Not tested Not tested Dorado's Not tested Not tested Yergason (resisted supination) neg Not tested Speed (biceps) neg neg Imaging: Xray (date): xrays fro 03/09/2016 notable for well-maintained joint spaces and no evidence of acute bony abnormality; humeral head concentric MRI (date): 06/03/2016 MRI notable for full thickness, massively retracted tear of supraspin atus with some extension into infraspinatus tendon Assessment: All clinical information was reviewed with the patient, who expressed understa nding. All questions were answered today. 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 I recommended surgical intervention, with a davis n for attempted repair and possible superior capsular reconstruction if the tear proves irre parable. I recommended that we proceed as early as insurance will permit, to have the best chance at a successful repair, given that this injury was initially missed. The patient agr eed. Plan: Right shoulder arthroscopy with subacromial decompression, rotator cuff repair, possi ble superior capsular reconstruction, and possible open subpectoral biceps tenodesis. A PAR Q session was held where I discussed the risks, benefits, and alternatives to this surgery. The patient was informed that the risks include but are not limited to , infection, dam age to nerves, vessels, bone, tendons, cartilage, muscle, post operative stiffness, there ma y be need for further surgery, and that no surgery has a guarantee. The patient had an oppo rtunity to get his questions answered to help understand the procedure and postoperative cou rse. Consent for the surgical procedure was signed. Uzma Meadows MD Pending Sale To [facility] Department of Orthopaedics and Rehabilitation Division of Sports Medicine documented in thi s encounter Plan of Treatment Not on filedocumented as of this encounter Procedures + +--------+ + + + | Procedure Name | Priori | Date/Time | Associated Diagnosis | Comments | | | ty | | | | + +--------+ + + + | ORDERS OTHER | | 07/07/2016 | | Results for this | | | | 12:00 AM | | procedure are in the | | | | PDT | | results section. | + +--------+ + + + documented in this encounter Results ORDERS OTHER (07/07/2016 12:00 AM PDT) + + + | Narrative | Performed At | + + + | | | + + + documented in this encounter Visit Diagnoses + + | Diagnosis | + + | Complete tear of right rotator cuff - Primary Complete rupture of rotator cuff | + + documented in this encounter
--- OUTSIDE RECORDS SUMMARY | ~2019-12-19 | XMS | Encounter Summary ---
Demographics + + + | Address | [address] | | | [place] [address] | + + + | Home Phone [...] Author + + + | Author | [facility] | + + + | Organization | [facility] | + + + | Address | Unknown | + + + | Phone | Unavailable | + + + Support + + +---------+ + | Name | Relationship | Address | Phone | + + +---------+ + | Azul Stubbs | ECON | Unknown | | + + +---------+ + Care Team Providers + +------+ + | Care Stunt Performer Name | Role | Phone | + +------+ + | Les Guzman PA-C | PCP | | + +------+ + Encounter Details +--------+ + + + + | Date | Type | Department | Care Team | Description | +--------+ + + + + | 07/12/ | Document-Sc | Health Information | Unknown . | | | 2017 | anned | Services [phone] | | | | | [address] | | | | | | Mailcode: [id number] | | | | | | [facility] | | | | | | [place], [place] | | | | | | [address] | | | | | | [phone] | | | +--------+ + + + [...]
--- OUTSIDE RECORDS SUMMARY | ~2019-12-19 | XMS | Encounter Summary ---
Demographics + + + | Address | [address] | | | [place] [address] | + + + | Home Phone | | + + + | Preferred Language | Unknown | + + + | Marital Status | Single | + + + | Samaritan Affiliation | NRP | + + + | Race | White | + + + | Ethnic Group | Not or | + + + Author + + + | Author | [facility] | + + + | Organization | [facility] | + + + | Address | Unknown | + + + | Phone | Unavailable | + + + Support + + +---------+ + | Name | Relationship | Address | Phone | + + +---------+ + | Azul Stubbs | ECON | Unknown | | + + +---------+ + Care Team Providers + +------+ + | Care Senior Account Clerk Name | Role | Phone | + [...] +--------+--------+ + + + + Encounter Details +--------+ + + + + | Date | Type | Department | Care Team | Description | +--------+ + + + + | 08/31/ | Hospital | [facility] | Uzma Meadows | | | 2017 | Encounter | STAY [address] | MD Tiffanie [address] | | | | | [place] Mailcode: DONNA | [place], [place] | | | | | [facility] | [address] | | | | | Health and Healing, | [phone] | | | | | [address] [address] [address] | | | | | | [place], [place] | | | | | | [address] | | | | | | [phone] | | | +--------+ + + + [...] Lang Meehan RN - 08/31/2016 Nursing Disc alissa Instructions General discharge instructions for same-day procedure [...] and subacromial decompression Surgeon: Uzma Meadows MD Dining Host: Jose Gaming MD Implants: Arthrex 5.5 mm [...] one lateral row Arthrex 4.75 mm P ALATNA Swivelock anchors in knotless fashion, because this [...] in the entire case. Uzma Meadows MD [facility] Department of Orthopaedics and Rehabilitation Division [...] | Uzma Meadows MD 08/31/2016 6:02 PM [facility] Orthopaedic | | | Sports Surgery Operative Report Date of surgery: 08/31/2016 | | | Preoperative diagnosis: right shoulder rotator cuff tear | | | Postoperative diagnosis: same Procedure: right shoulder | | | arthroscopy with rotator cuff repair (supraspinatus and | | | infraspinatus) and subacromial decompression Surgeon: Uzma | | | MD Abdiel Dining Host: Jose Gaming MD Implants: Arthrex 5.5 mm [...] entire case. Uzma Meadows, | | | [facility] Department of Orthopaedics | | | and [...] | + + documented in this encounter Administered Medications + +--------+ [...] | | | | Until Wed08/31/16 at 1141 | | | | | | + +-------+ +--------+---+---+ + +---+ | | | + +---+ | fentaNYL (SUBLIMAZE) injection | | | 50 mcg 50 mcg, intravenous, | | | POSTPROCEDURE PRN, 4 doses, | | | Starting Wed08/31/16 at 1309, | | | Until Wed08/31/16 at 2354, severe | | | pain [...] PRN, 1 | | | dose, Starting Wed08/31/16 at | | | 1309, Until Wed08/31/16 [...] | | | Until 08/31/16 at 2354, | | | hypopnea | [...] | | | CONTINUOUS, Starting Wed08/31/16 | | | | | | | [...] | | | Auricula | | dose, Wed08/31/16 at 1300 | | | | | r | + + + +---------+---+ + +---+---+ | | | +---+---+ documented in this encounter
--- OUTSIDE RECORDS SUMMARY | ~2019-12-19 | XMS | Encounter Summary ---
Demographics + + + | Address | [address] | | | [place] [address] | + + + | Home Phone | | + + + | Preferred Language | Unknown | + + + | Marital Status | Single | + + + | Episcopal Affiliation | NRP | + + + | Race | White | + + + | Ethnic Group | Not or | + + + Author + + + | Author | [facility] | + + + | Organization | [facility] | + + + | Address | Unknown | + + + | Phone | Unavailable | + + + Support + + +---------+ + | Name | Relationship | Address | Phone | + + +---------+ + | Azul Stubbs | ECON | Unknown | | + + +---------+ + Care Team Providers + +------+ + | Care Financial Specialist Name | Role | Phone | + +------+ + | Les Guzman PA-C | PCP | | + +------+ + Reason for Visit + + + | Reason | Comments | + + + | Follow-up visit | Right shoulder | + + + Benefits Check (Routine) + +--------+ + + + + | Status | Reason | Specialty | Diagnoses / | Referred By | Referred To | | | | | Procedures | Contact | Contact | + +--------+ + + + + | Authorized | | Orthopedics | | Non-[facility] | Abdiel, | | | | | | Epic Dept | Uzma Moreno, | | | | | | | MD [address] | | | | | | [address] | | | | | | | [facility], [place] | | | | | | | [address] | | | | | | | Phone: | | | | | | | [phone] | | | | | | | Fax: | | | | | | | [phone] | + +--------+ + + + + Encounter Details +--------+---------+ + + + | Date | Type | Department | Care Team | Description | +--------+---------+ + + + | 04/20/ | Office | Orthopaedics | Cherelle King | Complete tear of | | 2019 | Visit | [facility] | NATHAN Moreno [address] | right rotator cuff, | | | | for Health and | [address] | unspecified whether | | | | Healing [address] | [place], [place] | traumatic (Primary | | | | Ave [facility] | [address] | Dx); Right elbow | | | | Health and Healing, | [phone] | pain | | | | Building [address] | | | | | | Floor [place], [place] | | | | | | [address] | | | | | | [phone] | | | +--------+---------+ + + + [...] + + + | Blood Pressure | - | - | | + + + + + | Pulse | - | - | | + [...] + documented in this encounter Progress Notes Cherelle King PA-C - 04/20/2019 1:15 PM PSTFormatting of this note might be differe nt from the original. SUBJECTIVE Loyd Pham was seen back today for concern of right elbow pain, swelling and stiffn ess for the last several months. He is wondering if it's related to his shoulder- s/p rotato r cuff repair in 2017. He notes that his shoulder is doing great and is asymptomatic. 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 Has noticed some mild swelling Pt's past medical history, allergies and medications were reviewed and updated today in cli vangie. 12 point ROS reviewed. Pt denies with exception of above. EXAM: Posture: normal. Skin and Soft tissue: well healed shoulder Mild olecranon bursal swelling Range of motion: Full active shoulder ROM Active elbow extension lacks 10 deg but passively gets full extension Strength: Normal limits except as noted: R arm Supraspinatus 5 Infraspinatus 5 Subscapularis 5 Deltoid 5 Biceps 5 Assessment: Shoulder doing well, but now with right elbow symptoms that are most c/w olecr anon bursitis Plan: rx volaren gel. Ice and wrap as needed Xrays on way out today Consider consult with UE if not improving or worsening documented in t his encounter Plan of Treatment Not on filedocumented as of this encounter Results X-RAY SHOULDER 3+ VIEWS RIGHT (04/20/2019 12:28 PM PST) + + | Specimen | + + | | + + + + + | Narrative | Performed At | + + + | EXAM: SHOULDER 3 VIEWS RIGHT HISTORY: tear of right rotator cuff | [facility] | | COMPARISON: June 03, 2016 FINDINGS: Prominent lucencies | RADIOLOGY VOICE | | have developed within the greater tuberosity since 2016; this may | RECOGNITION 2 | | reflect a postoperative appearance. There appears to be a high riding | | | humeral head. The glenohumeral joint is not diagnostically profiled, | | | although appears mildly degenerated. The acromioclavicular joint is | | | aligned. IMPRESSION: Prominent cystic changes have developed | | | in the greater tuberosity since 2016 probably reflecting a | | | postoperative appearance, although developing fibrocystic change | | | related to rotator cuff abnormalities are an alternate consideration. | | | High riding humeral head, suggesting re-tear of the rotator cuff. | | | I have personally reviewed the images and, if necessary, edited | | | the report. I agree with the report as now presented. Final | | | signature: Sukumar Perry MD 04/20/2019 12:34 PM Preliminary: Sukumar Perry MD Dictation initiated: Sukumar Perry MD 04/20/2019 | | | 12:32 PM | | + + + + + | Procedure Note | + + | Service Account, Radiant Res In Interface - 04/20/2019 12:35 PM PST EXAM: SHOULDER 3 | | VIEWS RIGHT HISTORY: tear of right rotator cuff COMPARISON: June 03, 2016 FINDINGS: | | Prominent lucencies have developed within the greater tuberosity since 2016; this may | | reflect a postoperative appearance. There appears to be a high riding humeral head. The | | glenohumeral joint is not diagnostically profiled, although appears mildly degenerated. | | The acromioclavicular joint is aligned. IMPRESSION: Prominent cystic changes have | | developed in the greater tuberosity since 2015 probably reflecting a postoperative | | appearance, although developing fibrocystic change related to rotator cuff abnormalities | | are an alternate consideration. High riding humeral head, suggesting re-tear of the | | rotator cuff. I have personally reviewed the images and, if necessary, edited the | | report. I agree with the report as now presented. Final signature: Sukumar Perry MD | | 04/20/2019 12:34 PM Preliminary: Sukumar Perry MD Dictation initiated: Sukumar Perry MD | | 04/20/2019 12:32 PM | |Prominent cystic changes have developed in the greater tuberosity since 2016 probably refle cting a postoperative appearance, although developing fibrocystic change related to rotator cuff abnormalities are an alternate consideration. | | | |High riding humeral head, suggesting re-tear of the rotator cuff. | | | |I have personally reviewed the images and, if necessary, edited the report. I agree with e report as now presented. | | | |Final signature: Sukumar Perry MD 04/20/2019 12:34 PM | |Preliminary: Sukumar Perry MD | |Dictation initiated: Sukumar Perry MD 04/20/2019 12:32 PM | + + + +---------+ + + | Performing | Address | City/State/Zipcode | Phone Number | | Organization | | | | + +---------+ + + | [facility] | | | | | VOICE RECOGNITION 2 | | | | + +---------+ + + documented in this encounter Visit Diagnoses + + | Diagnosis | + + | Complete tear of right rotator cuff, unspecified whether traumatic - Primary | + + | Right elbow pain Pain in joint, upper arm | + + documented in this encounter
--- OUTSIDE RECORDS SUMMARY | ~2019-12-19 | XMS | Encounter Summary ---
Demographics + + + | Address | [address] | | | [place] [address] | + + + | Home Phone | | + + + | Preferred Language | Unknown | + + + | Marital Status | Single | + + + | Anabaptism Affiliation | NRP | + + + | Race | White | + + + | Ethnic Group | Not or | + + + Author + + + | Author | [facility] | + + + | Organization | [facility] | + + + | Address | Unknown | + + + | Phone | Unavailable | + + + Support + + +---------+ + | Name | Relationship | Address | Phone | + + +---------+ + | Azul Stubbs | ECON | Unknown | | + + +---------+ + Care Team Providers + +------+ + | Care Rougher For Cement Name | Role | Phone | + +------+ + | Les Guzman PA-C | PCP | | + +------+ + Reason for Visit +---------+ + | Reason | Comments | +---------+ + | Post Op | | +---------+ + Intake Referral (Urgent) +--------+--------+ + + + + | Status | Reason | Specialty | Diagnoses / | Referred By | Referred To | | | | | Procedures | Contact | Contact | +--------+--------+ + + + + | Closed | | Orthopedics | Diagnoses | Thomas | Abdiel, | | | | | Unspecified | Les Moreno MD | Uzma Moreno | | | | | injury of | Gem | [address] | | | | | muscle(s) | Medical | [address] | | | | | and | [address] | [place], [place] | | | | | tendon(s) of | [address] | [address] | | | | | the rotator | St | Phone: | | | | | cuff of | [place] | [phone] | | | | | right | [address] | Fax: | | | | | shoulder, | Phone: | [phone] | | | | | subsequent | [phone] | | | | | | encounter | Fax: | | | | | | Pain in | [phone] | | | | | | right | | | | | | | shoulder | | | +--------+--------+ + + + + Encounter Details +--------+---------+ + + + | Date | Type | Department | Care Team | Description | +--------+---------+ + + + | 12/15/ | Office | Orthopaedics | Uzma Meadows | Complete tear of | | 2017 | Visit | [facility] | MD Tiffanie [address] | right rotator cuff | | | | for Health and | Ave [place], [place] | (Primary Dx) | | | | Healing [address] | [address] | | | | | [facility] | [phone] | | | | | Health and Healing, | | | | | | [facility] | | | | | | [place], [place] | | | | | | [address] | | | | | | [phone] | | | +--------+---------+ + + + [...] Weight | 81.6 kg (180 lb) | 12/15/2016 4:01 PM | | | | | PDT | | + + + + + | Height | 170.2 cm (5' 7") | 12/15/2016 4:01 PM | | | | | PDT | | + + + + + | Body Mass Index | 28.19 | 12/15/2016 4:01 PM | | | | | PDT | | + + + + + documented in this encounter Progress Notes Sandy Albarado MD - 12/15/2016 4:10 PM PDT Diagnosis: rightshoulder rotator cuff tear [facility] to date: [facility] [facility] cuff repair (supr aspinatus and infraspinatus) andsubacromial decompression Review of interval history and current physical exam indicates that each is essentially unc hanged with the notable exceptions as described above and below. Subjective: Pain well controlled. He is happy with his range of motion. 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 EXAM: Posture: normal. Skin and Soft tissue: well healed. Range of motion: Right Left Active Passive Active Passive Scapular plane 155 165 Ext. rotation @ 0 50 60 Ext. rotation @ 90 Internal rotation T10 Kinetics some shrug Strength: Operative arm Supraspinatus 5/5 Infraspinatus 5/5 Subscapularis 5/5 Deltoid not tested Biceps 5/5 Able to "lift off" with right arm behind back Empty can test negative on right Assessment: Progressing well. His range of motion is doing very well, but he is not ready to return to full duty yet. Plan: Range of motion per rehabilitation protocol. Patient to continue with rehabilitaion as instructed. Okay to return to light duty work, no greater than 10 lbs pulling/pushing, no repetitive sh oulder abduction, documentation provided for work restrictions RTC in 6 weeks. Anticipate return to full work duties at that time if strength and mechani cs restored. I personally interviewed and evaluated this patient. I agree with the resident's findings and plan of care as described. Uzma Meadows MD [facility] Department of Orthopaedics and Rehabilitation Division of Sports Medicine rady, Uzma Moreno MD - 12/15/2016 4:10 PM PDT documented in thi s encounter Plan of Treatment Not on filedocumented as of this encounter Procedures + +--------+ + + + | Procedure Name | Priori | Date/Time | Associated Diagnosis | Comments | | | ty | | | | + +--------+ + + + | ORDERS OTHER | | 12/15/2016 | | Results for this | | | | 12:00 AM | | procedure are in the | | | | PDT | | results section. | + +--------+ + + + | ORDERS OTHER | | 12/15/2016 | | Results for this | | | | 12:00 AM | | procedure are in the | | | | PDT | | results section. | + +--------+ + + + | ORDERS OTHER | | 12/15/2016 | | Results for this | | | | 12:00 AM | | procedure are in the | | | | PDT | | results section. | + +--------+ + + + | ORDERS OTHER | | 12/15/2016 | | Results for this | | | | 12:00 AM | | procedure are in the | | | | PDT | | results section. | + +--------+ + + + documented in this encounter Results ORDERS OTHER (12/15/2016 12:00 AM PDT) + + + | Narrative | Performed At | + + + | | | + + + ORDERS OTHER (12/15/2016 12:00 AM PDT) + + + | Narrative | Performed At | + + + | | | + + + ORDERS OTHER (12/15/2016 12:00 AM PDT) + + + | Narrative | Performed At | + + + | | | + + + ORDERS OTHER (12/15/2016 12:00 AM PDT) + + + | Narrative | Performed At | + + + | | | + + + documented in this encounter Visit Diagnoses + + | Diagnosis | + + | Complete tear of right rotator cuff - Primary Complete rupture of rotator cuff | + + documented in this encounter
--- OUTSIDE RECORDS SUMMARY | ~2019-12-19 | XMS | Encounter Summary ---
Demographics + + + | Address | [address] | | | [place] [address] | + + + | Home Phone | | + + + | Preferred Language | Unknown | + + + | Marital Status | Single | + + + | Taoism Affiliation | NRP | + + + | Race | White | + + + | Ethnic Group | Not or | + + + Author + + + | Author | [facility] | + + + | Organization | [facility] | + + + | Address | Unknown | + + + | Phone | Unavailable | + + + Support + + +---------+ + | Name | Relationship | Address | Phone | + + +---------+ + | Azul Stubbs | ECON | Unknown | | + + +---------+ + Care Team Providers + +------+ + | Care Stock Fitter Name | Role | Phone | + [...] | Physical | Diagnoses | Abdiel, | | | | | Therapy | Scapular | Uzma | | | | | | dyskinesis | MD [address]iff[address] | | | | | | Procedures | [address] | | | | | | PHYSICAL | [place], [place] | | | | | | THERAPY | [address] | | | | | | REFERRAL | Phone: | | | | | | | [phone] | | | | | | | Fax: | | | | | | | [phone] | | +--------+--------+ + + + + Reason for Visit + +--------+ + | Reason | Onset | Comments | | | Date | | + +--------+ + | Physical Therapy | 03/16/ | | | Guidance | 2019 | | + +--------+ + Encounter Details +--------+ + + + + | Date | Type | Department | Care Team | Description | +--------+ + + + + | 03/16/ | Telephone | Orthopaedics | Uzma Meadows | Physical Therapy | | 2019 | | [facility] at [facility] | MD Tiffanie [address] | Guidance | | | | for Health and | [address], [place] | | | | | Healing [address] | [address] | | | | | Ave [place] for | [phone] | | | | | Health and Healing, | | | | | | Building | | | | | | Floor [place], [place] | | | | | | [address] | | | | | | [phone] | | | +--------+ + + + [...] + + documented as of this encounter Miscellaneous Notes Telephone Encounter - eRgine Agustin MA - 03/17/2018 6:50 AM PSTOrdered and faxedElectronical ly signed by Regine Agustin MA at 03/17/2018 6:51 AM PSTTelephone Encounter - Matilda Cheatham - 0 03/16/2018 2:04 PM PSTPatient: Loyd Les Pham Last Visit: 01/10/18 at 3:41 pm Next Visit: [facility] at 10:45 am with Uzma Meadows MD. Recent Surgery: No Procedure: Provider: Abdiel Reason for call: Pt is calling for a new PT order. Please fax to [facility], fax [phone] Do we have permission to leave you a confidential voicemail at the call back number you pro vided?: Yes documented in this encounte r Plan of Treatment Not on filedocumented as of this encounter Visit Diagnoses + + | Diagnosis | + + | Scapular dyskinesis - Primary Lack of coordination | + + documented in this encounter"
--- OUTSIDE RECORDS SUMMARY | ~2019-12-19 | XMS | Encounter Summary ---
Demographics + + + | Address | [address] | | | [place] [address] | + + + | Home Phone | | + + + | Preferred Language | Unknown | + + + | Marital Status | Single | + + + | Baptism Affiliation | NRP | + + + [...] Team Providers + +------+ + | Care Guardian Ad Litem Name | Role | Phone | + [...]
--- OUTSIDE RECORDS SUMMARY | ~2019-12-19 | XMS | Encounter Summary ---
Demographics + + + | Address | [address] | | | [place] [address] | + + + | Home Phone | | + + + | Preferred Language | Unknown | + + + | Marital Status | Single | + + + | Temple Affiliation | NRP | + + + | Race | White | + + + | Ethnic Group | Not or | + + + Author + + + | Author | [facility] | + + + | Organization | [facility] | + + + | Address | Unknown | + + + | Phone | Unavailable | + + + Support + + +---------+ + | Name | Relationship | Address | Phone | + + +---------+ + | Azul Stubbs | ECON | Unknown | | + + +---------+ + Care Team Providers + +------+ + | Care Him Tech Name | Role | Phone | + +------+ + | Les Guzman PA-C | PCP | | + +------+ + Encounter Details +--------+ + + + + | Date | Type | Department | Care Team | Description | +--------+ + + + + | 04/20/ | Hospital | Radiology/Imaging | Cherelle King | | | 2020 | Encounter | Lab at [facility] [address] PA-C [address] | | | | | [address] [facility] for | [facility] | | | | | Health and [facility], | [place], [place] | | | | | | [address] | | | | | Floor [place], [place] | [phone] | | | | | [address] | | | | | | [phone] | | | +--------+ + + + [...] | + +--------+ + + + | X-RAY SHOULDER 3+ | Routin | 04/20/2019 | Complete tear of | Results for this | | VIEWS RIGHT | e | 12:28 PM | right rotator cuff, | procedure are in the | | | | PST | unspecified whether | results section. | | | | | traumatic | | + +--------+ + + + documented in this encounter Results X-RAY SHOULDER 3+ VIEWS [...] Perry MD 04/20/2019 12:34 PM Preliminary: Sukumar | | | Tiffanie Perry MD Dictation initiated: Sukumar Perry MD [...] | developed in the greater tuberosity since 2016 probably reflecting a postoperative | | appearance, [...] necessary, edited the report. I agree with th e report as now presented. | | [...] cuff, unspecified whether traumatic | + + documented in this encounter"
--- OUTSIDE RECORDS SUMMARY | ~2019-12-19 | XMS | Encounter Summary ---
Demographics + + + | Address | [address] | | | [place] [address] | + + + | Home Phone | | + + + | Preferred Language | Unknown | + + + | Marital Status | Single | + + + | Methodist Affiliation | NRP | + + + | Race | White | + + + | Ethnic Group | Not or | + + + Author + + + | Author | [facility] | + + + | Organization | [facility] | + + + | Address | Unknown | + + + | Phone | Unavailable | + + + Support + + +---------+ + | Name | Relationship | Address | Phone | + + +---------+ + | Azul Stubbs | ECON | Unknown | | + + +---------+ + Care Team Providers + +------+ + | Care Paper Cone Maker Name | Role | Phone | + +------+ + | Les Guzman PA-C | PCP | | + +------+ + Encounter Details +--------+ + + + + | Date | Type | Department | Care Team | Description | +--------+ + + + + | 07/26/ | Documentati | Orthopaedics | Milagros Calixto | | | 2020 | on | [facility] at [place] | NATHAN Patel [address] | | | | | for Health and | [address], | | | | | Healing [address] | [place] [address] | | | | | [facility] for | [phone] | | | | | Health and Healing, | | | | | | | | | | | | [place], [place] | | | | | | [address] | | | | | | [phone] | | | +--------+ + + + [...]
--- OUTSIDE RECORDS SUMMARY | ~2019-12-19 | XMS | Encounter Summary ---
Demographics + + + | Address | [address] | | | [place] [address] | + + + | Home Phone [...] Author + + + | Author | [facility] | + + + | Organization | [facility] | + + + | Address | Unknown | + + + | Phone | Unavailable | + + + Support + + +---------+ + | Name | Relationship | Address | Phone | + + +---------+ + | Azul Stubbs | ECON | Unknown | | + + +---------+ + Care Team Providers + +------+ + | Care Business System Manager Name | Role | Phone | + +------+ + | Les Guzman PA-C | PCP | | + +------+ + Encounter Details +--------+ + + + + | Date | Type | Department | Care Team | Description | +--------+ + + + + | 08/31/ | Pharmacy | [facility] | | | | 2017 | Visit | & [facility]aling Pharmacy | | | | | | [address] | | | | | | Mailcode: [place] | | | | | | [facility] and | | | | | | Healing, [address] | | | | | | [place], [place] | | | | | | [address] | | | | | | [phone] | | | +--------+ + + + [...]
--- OUTSIDE RECORDS SUMMARY | ~2019-12-19 | XMS | Encounter Summary ---
Demographics + + + | Address | [address] | | | [place] [address] | + + + | Home Phone | | + + + | Preferred Language | Unknown | + + + | Marital Status | Single | + + + | Anabaptist Affiliation | NRP | + + + [...] Team Providers + +------+ + | Care Camp Manager Name | Role | Phone | + +------+ + | Les Guzman MD | PCP | | + +------+ + Encounter Details +--------+ + + + + | Date | Type | Department | Care Team | Description | +--------+ + + + + | 06/03/ | Document-Sc | Health Information | Unknown . | | | 2017 | anned | Services [address] | | | | | [address] | | | | | | Mailcode: [id number] | | | | | | [facility] | | | | | | [place], [place] | | | | | | [address] | | | | | | [phone] | | | +--------+ + + + + Social History + +-------+ +--------+------+ | Tobacco Use | Types | Packs/Day | Years | Date | | | | | Used | | + +-------+ +--------+------+ | Never Assessed | | | | | + +-------+ +--------+------+ + + + | Sex Assigned at [...] | + +--------+ + + + | RADIOLOGY | | 06/03/2016 | | Results for this | | | | 12:00 AM | | procedure are in the | | | | PDT | | results section. | + +--------+ + + + documented in this encounter Results RADIOLOGY (06/03/2016 12:00 AM PDT) + + + | Narrative | Performed At | + + + | | | + + + documented in this encounter Visit Diagnoses Not on filedocumented in this encounter"
--- OUTSIDE RECORDS SUMMARY | ~2019-12-19 | XMS | Encounter Summary ---
Demographics + + + | Address | [address] | | | [place] [address] | + + + | Home Phone | | + + + | Preferred Language | Unknown | + + + | Marital Status | Single | + + + | Judaism Affiliation | NRP | + + + [...] Team Providers + +------+ + | Care Childcare Center Director Name | Role | Phone | + +------+ + | Les Guzman PA-C | PCP | | + +------+ + Reason for Visit + +--------+ + | Reason | Onset | Comments | | | Date | | + +--------+ + | [employer] | 07/17/ | | | Compensation Claim | 2020 | | + +--------+ + Encounter Details +--------+ + + + + | Date | Type | Department | Care Team | Description | +--------+ + + + + | 07/17/ | MyChart | Orthopaedics | Uzma Meadows | RE: Loyd Pham - | | 2019 | Encounter | [facility] at [facility] | MD Tiffanie [address] | [facility] | | | | for Health and | Ave [place], [place] | | | | | Healing [address] | [address] | | | | | Ave [facility] for | [phone] | | | | | Health and Healing, | | | | | | Building | | | | | | Floor [place], [place] | | | | | | [address] | | | | | | [phone] | | | +--------+ + + + [...] this encounter Miscellaneous Notes Telephone Encounter - Liudmila YoungerBRE - 08/14/2019 8:39 AM PDTI called [facility] which documents needed revision, he confirmed that it is the maximum degree of improv ement form. I added the following statement to the already signed document: Please note that the signat ure provided by Milagros Calixto PA-C serves as the authorizing signature in place of Dr. Uzma Meadows MD while she is on materinty leave. Also note that during all NATHAN'S have the authorization to sign legal documents in support of the CARES act. Statement approved per physician practice market manager Amaya. I then emailed this copy per patient request to the email on file and uploaded it into the patient's chart. Closing encounter. e lephone Encounter - Matilda Cheatham - 08/10/2019 4:19 PM PDTPt calling back, his WC is not al lowing a PA to sign off. Explained to the pt that Dr. Meadows is still on maternity leave. He would like us to make a note on the form stating why MD is unable to sign off. Please make n ote and email to patient ele phone Encounter - Liudmila Younger MA - 07/27/2019 1:01 PM PDTDocuments signed and E-mailed as requested. Closing encounter. elephone Encounter - Milagros Calixto PA-C - 07/26/2019 12:40 PM PDTReceived via email but in a form I can't sign electronically. I will sign in clinic tomorrow. elephone Encounter - Milagros Calixto PA-C - 07/21/2019 2:34 PM PDTCourtney - can you email this to me to sign? Maybe you al ready did... if so can you email it to me again? elephone Encounter - Liudmila Younger MA - 07/18/2019 12:26 PM PDTFile saved and placed in provider sig folder. Marking for PAsElectronically sign ed by Liudmila Younger MA at 07/18/2019 12:27 PM PDTdocumented in this encounter Plan of Treatment Not on filedocumented as of this encounter Visit Diagnoses Not on filedocumented in this encounter"
--- OUTSIDE RECORDS SUMMARY | ~2019-12-19 | XMS | Encounter Summary ---
Demographics + + + | Address | [address] | | | [place] [address] | + + + | Home Phone | | + + + | Preferred Language | Unknown | + + + | Marital Status | Single | + + + | Jehovah'S Witness Affiliation | NRP | + + + | Race | White | + + + | Ethnic Group | Not or | + + + Author + + + | Author | [facility] | + + + | Organization | [facility] | + + + | Address | Unknown | + + + | Phone | Unavailable | + + + Support + + +---------+ + | Name | Relationship | Address | Phone | + + +---------+ + | Azul Stubbs | ECON | Unknown | | + + +---------+ + Care Team Providers + +------+ + | Care Roof Truss Machine Tender Name | Role | Phone | + +------+ + | Les Guzman PA-C | PCP | | + +------+ + Encounter Details +--------+ + + + + | Date | Type | Department | Care Team | Description | +--------+ + + + + | 11/30/ | Telephone | Orthopaedics | Uzma Meadows | | | 2018 | | [facility] at [place] | MD Tiffanie [address] | | | | | for Health and | Ave [facility] [place] | | | | | Healing [address] | [address] | | | | | Ave [place] for | [phone] | | | | | Health and Healing, | | | | | | [facility] | | | | | | Floor [place], [place] | | | | | | [address] | | | | | | [phone] | | | +--------+ + + + [...]
--- OUTSIDE RECORDS SUMMARY | ~2019-12-19 | XMS | Encounter Summary ---
Demographics + + + | Address | [address] | | | [place] [address] | + + + | Home Phone [...] Author + + + | Author | [facility] | + + + | Organization | [facility] | + + + | Address | Unknown | + + + | Phone | Unavailable | + + + Support + + +---------+ + | Name | Relationship | Address | Phone | + + +---------+ + | Azul Stubbs | ECON | Unknown | | + + +---------+ + Care Team Providers + +------+ + | Care Embroiderer Name | Role | Phone | + [...] | 2019 | Visit | [facility] at [facility] | MD Tiffanie [address] | right rotator cuff | | | | for Health and | Ave [facility], [place] | (Primary Dx) | | | | Healing [address] | [address] | | | | | Ave [place] for | [phone] | | | | | Health and Healing, | | | | | | Building | | | | | | Floor [place], [place] | | | | | | [address] | | | | | | [phone] | | | +--------+---------+ + + + [...] rotator cuff tear Interventions to date: 08/31/2016 [facility] arthroscopy with rotator cuff repair (supr aspinatus [...] as described. Uzma Meadows MD [facility] Department of Orthopaedics and Rehabilitation Division of Sports Medicine documented in thi s encounter Plan of Treatment Not on filedocumented as of this encounter Visit Diagnoses + + | Diagnosis | + + | Complete tear of right rotator cuff - Primary Complete rupture of rotator cuff | + + documented in this encounter"
--- OUTSIDE RECORDS SUMMARY | ~2019-12-19 | XMS | Encounter Summary ---
Demographics + + + | Address | [address] | | | [place] [address] | + + + | Home Phone | | + + + | Preferred Language | Unknown | + + + | Marital Status | Single | + + + | Nondenominational Affiliation | NRP | + + + | Race | White | + + + | Ethnic Group | Not or | + + + Author + + + | Author | [facility] | + + + | Organization | [facility] | + + + | Address | Unknown | + + + | Phone | Unavailable | + + + Support + + +---------+ + | Name | Relationship | Address | Phone | + + +---------+ + | Azul Stubbs | ECON | Unknown | | + + +---------+ + Care Team Providers + +------+ + | Care Cereal Maker Name | Role | Phone | + +------+ + | Les Guzman PA-C | PCP | | + +------+ + Encounter Details +--------+ + + + + | Date | Type | Department | Care Team | Description | +--------+ + + + + | 01/07/ | Telephone | Orthopaedics | Uzma Meadows | | | 2017 | | [facility] at [place] [facility] | MD Tiffanie [address] | | | | | for Health and | Ave [facility] [place] | | | | | Healing [address] | [address] | | | | | Ave [place] for | [phone] | | | | | Health and Healing, | | | | | | | | | | | | Floor [place], [place] | | | | | | [address] | | | | | | [phone] | | | +--------+ + + + [...] this encounter Miscellaneous Notes Telephone Encounter - Deborah Toth - 01/07/2017 3:25 PM PDTNotified Aarbella that elinor ty has been sent off for Loyd's plan of care. documented in this encounter Plan of Treatment Not on filedocumented as of this encounter Visit Diagnoses Not on filedocumented in this encounter"
--- OUTSIDE RECORDS SUMMARY | ~2019-12-19 | XMS | Encounter Summary ---
Demographics + + + | Address | [address] | | | [place] [address] | + + + | Home Phone | | + + + | Preferred Language | Unknown | + + + | Marital Status | Single | + + + | Yazidism Affiliation | NRP | + + + | Race | White | + + + | Ethnic Group | Not or | + + + Author + + + | Author | [facility] | + + + | Organization | [facility] | + + + | Address | Unknown | + + + | Phone | Unavailable | + + + Support + + +---------+ + | Name | Relationship | Address | Phone | + + +---------+ + | Azul Stubbs | ECON | Unknown | | + + +---------+ + Care Team Providers + +------+ + | Care Keyboard Instrument Tuner Name | Role | Phone | + [...] | 2020 | Encounter | Lab at [facility] [address] PA-C [address] | Request) | | | | [facility] for | [address] | | | | | Health and Healing, | [place], [place] | | | | | [place] [address] | [address] | | | | | Floor [place], [place] | [phone] | | | | | [address] | | | | | | [phone] | | | +--------+ + + + [...] + | Yes | 12 Cans of constanza | 12.0 | 1-2 day | + [...]
--- OUTSIDE RECORDS SUMMARY | ~2019-12-19 | XMS | Encounter Summary ---
Demographics + + + | Address | [address] | | | [place] [address] | + + + | Home Phone [...] Author + + + | Author | [facility] | + + + | Organization | [facility] | + + + | Address | Unknown | + + + | Phone | Unavailable | + + + Support + + +---------+ + | Name | Relationship | Address | Phone | + + +---------+ + | Azul Stubbs | ECON | Unknown | | + + +---------+ + Care Team Providers + +------+ + | Care Activities Volunteer Name | Role | Phone | + +------+ + | Les Guzman PA-C | PCP | | + +------+ + Encounter Details +--------+ + + + + | Date | Type | Department | Care Team | Description | +--------+ + + + + | 10/19/ | Telephone | Orthopaedics | Uzma Meadows | | | 2017 | | [facility] at [place] | MD Tiffanie [address] | | | | | for Health and | [address] [facility] [place] | | | | | Healing [address] | [address] | | | | | Ave [place] for | [phone] | | | | | Health and Healing, | | | | | | [facility] | | | | | | Floor [place], [place] | | | | | | [address] | | | | | | [phone] | | | +--------+ + + + [...] this encounter Miscellaneous Notes Telephone Encounter - Jania Mcdowell - 10/27/2016 11:59 AM PDTPPW from [employer] faxed back to Brit Mccullough for [employer] today. Sent to be scanned. Mailed copy to home address per pt. Notified pt. 12: 04 PM PDTTelephone Encounter - Arina Dunbar - 10/19/2016 10:17 AM PDTRTW ppwk placed in Carola bray's folder for completion and sig. 10: 17 AM PDTdocumented in this encounter Plan of Treatment Not on filedocumented as of this encounter Visit Diagnoses Not on filedocumented in this encounter"
--- OUTSIDE RECORDS SUMMARY | ~2019-12-19 | XMS | Encounter Summary ---
Demographics + + + | Address | [address] | | | [place] [address] | + + + | Home Phone [...] Team Providers + +------+ + | Care Tour Operator Name | Role | Phone | + +------+ + | Les Guzman MD | PCP | | + +------+ + Encounter Details +--------+ + + + + | Date | Type | Department | Care Team | Description | +--------+ + + + + | 03/09/ | Document-Sc | Health Information | Unknown . | | | 2015 | anned | Services [id number] | | | | | | [address] | | | | | | Mailcode: [id number] | | | | | | [facility] | | | | | | [place], [place] | | | | | | [address] | | | | | | [phone] | | | +--------+ + + + [...] + + + | RADIOLOGY | | 03/09/2016 | | Results for this | | | | 12:00 AM | | procedure are in the | | | | PST | | results section. | + +--------+ + + + documented in this encounter Results RADIOLOGY (03/09/2016 12:00 AM PST) + + + | Narrative | Performed At | + + + | | | + + + documented in this encounter Visit Diagnoses Not on filedocumented in this encounter"
--- OUTSIDE RECORDS SUMMARY | ~2019-12-19 | XMS | Encounter Summary ---
Demographics + + + | Address | [address] | | | [place] [address] | + + + | Home Phone [...] Author + + + | Author | [facility] | + + + | Organization | [facility] | + + + | Address | Unknown | + + + | Phone | Unavailable | + + + Support + + +---------+ + | Name | Relationship | Address | Phone | + + +---------+ + | Azul Stubbs | ECON | Unknown | | + + +---------+ + Care Team Providers + +------+ + | Care Telephone Technician Name | Role | Phone | [...] Closed | | Physical | Diagnoses | Quilici, | | | | | Therapy | Complete | Cherelle Moreno, | | | | | | tear of | [address] | | | | | | right | [address] | | | | | | rotator cuff | [address] | | | | | | Procedures | Rd | | | | | | PHYSICAL | [place], [place] | | | | | | THERAPY | [address] | | | | | | REFERRAL | Phone: | | | | | | | [phone] | | | | | | | Fax: | | | | | | | [phone] | | +--------+--------+ + + + + Reason for Visit +---------+ + | Reason | Comments | +---------+ + | Post Op | | +---------+ + PROC - Outpatient Surgery [...] | | tear of | Gem | [address] | | | | | right | Medical | [address] | | | | | rotator cuff | [address] | [place], [place] | | | | | Procedures | [address] | [address] | | | | | REQUEST TO | St | Phone: | | | | | SURGERY | [place] | [phone] | | | | | [employer] | [address] | Fax: | | | | | MI SHLDR | Phone: | [phone] | | | | | ARTHROSCOP,S | [phone] | | | | | | URG,W/ROTAT | Fax: | | | | | | CUFF REPR | [phone] | | | | | | MI SHLDR | | | | | | | ARTHROSCOP,P | | | | | | | ART | | | | | | | ACROMIOPLAS | | | | | | | W/CORACOACRO | | | | | | | M MI SHLDR | | | | | | | ARTHROSCOP,S | | | | | | | URG,CAPSULOR | | | | | | | RHAPHY MI | | | | | | | REPAIR | | | | | | | BICEPS LONG | | | | | | | TENDON | | | +--------+--------+ + + + + Encounter Details +--------+---------+ + + + | Date | Type | Department | Care Team | Description | +--------+---------+ + + + | 10/13/ | Office | Orthopaedics | Cherelle King | Complete tear of | | 2017 | Visit | [facility] at [place] | [address] | right rotator cuff | | | | for Health and | [address] | (Primary Dx) | | | | Healing [address] | [place], [place] | | | | | [facility] | [address] | | | | | Health and Healing, | [phone] | | | | | [facility] | | | | | | Floor [facility] [place] | | | | | | [address] | | | | | | [phone] | | | +--------+---------+ + + + [...] Weight | 79.4 kg (175 lb) | 10/13/2016 11:01 AM | | | | | PDT | | + + + + + | Height | 170.2 cm (5' 7") | 10/13/2016 11:01 AM | | | | | PDT | | + + + + + | Body Mass Index | 27.41 | 10/13/2016 11:01 AM | | | | | PDT | | + + + + + documented in this encounter Progress Notes Cherelle King PA-C - 10/13/2016 11:20 AM PDTDiagnosis: right shoulder rotator cuff t ear Interventions to date: 08/31/2016 right shoulder arthroscopy with rotator cuff repair (supra spinatus and infraspinatus) and subacromial decompression Review of interval history and current physical exam indicates that each is essentially unc hanged with the notable exceptions as described above and below. Subjective: Loyd Pham is now 6 weeks out from the above procedure and is doing well. Hi s shoulder already feels much better that preop. He has been wearing his sling as tonio alcaraz. He plans to begin PT next week He continues to have numbness at the radial nerve distribution that is unchanged from last check EXAM: Posture: in sling. Skin and Soft tissue: incisions clean and dry with no signs of infection, well healed. Passive FF and passive abd to 90 easily, Passive ER to 60 Assessment: Doing well 6 weeks postop rotator cuff repair Plan: May discontinue sling. Begin PT, referral and protocol given. Will continue to monitor his radial nerve injury F/u [address] Meadows documented in t his encounter Plan of Treatment Not on filedocumented as of this encounter Procedures + +--------+ + + + | Procedure Name | Priori | Date/Time | Associated Diagnosis | Comments | | | ty | | | | + +--------+ + + + | ORDERS OTHER | | 10/13/2016 | | Results for this | | | | 12:00 AM | | procedure are in the | | | | PDT | | results section. | + +--------+ + + + documented in this encounter Results ORDERS OTHER (10/13/2016 12:00 AM PDT) + + + | Narrative | Performed At | + + + | | | + + + documented in this encounter Visit Diagnoses + + | Diagnosis | + + | Complete tear of right rotator cuff - Primary Complete rupture of rotator cuff | + + documented in this encounter
--- OUTSIDE RECORDS SUMMARY | ~2019-12-19 | XMS | Encounter Summary ---
Demographics + + + | Address | [address] | | | [place] [address] | + + + | Home Phone | | + + + | Preferred Language | Unknown | + + + | Marital Status | Single | + + + | Pentecostalism Affiliation | NRP | + + + | Race | White | + + + | Ethnic Group | Not or | + + + Author + + + | Author | [facility] | + + + | Organization | [facility] | + + + | Address | Unknown | + + + | Phone | Unavailable | + + + Support + + +---------+ + | Name | Relationship | Address | Phone | + + +---------+ + | Azul Stubbs | ECON | Unknown | | + + +---------+ + Care Team Providers + +------+ + | Care Burner Machine Operator Name | Role | Phone | + +------+ + | Les Guzman PA-C | PCP | | + +------+ + Reason for Visit + +--------+ + | Reason | Onset | Comments | | | Date | | + +--------+ + | Physical Therapy | 10/13/ | | | Guidance | 2016 | | + +--------+ + Encounter Details +--------+ + + + + | Date | Type | Department | Care Team | Description | +--------+ + + + + | 10/13/ | Telephone | Orthopaedics | Uzma Meadows | Physical Therapy | | 2017 | | Faculty at [place] | MD Tiffanie [address] | Guidance | | | | for Health and | Ave [place], [place] | | | | | Healing [address] | [address] | | | | | Ave [place] for | [phone] | | | | | Health and Healing, | | | | | | Building | | | | | | Floor [place], [place] | | | | | | [address] | | | | | | [phone] | | | +--------+ + + + [...] this encounter Miscellaneous Notes Telephone Encounter - Pamela Patterson MA - 10/14/2016 10:20 AM PDTCalled Chandra left me ssage. Advised on DEE's response. Nothing further needed at this time. elephone Encounter - Cherelle King PA-C - 10/13/2016 4:25 PM PDTI gave all those things to the patient today. Please let the m know that the patient will provide this, thanks elephone Encounter - Wale Tootie - 10/13/2016 3:33 PM PDTPatient: Loyd Pham Last Visit: 09/16/16 at 10:20 am Next Visit: Next Appointment in [facility] is on 12/08/16 at 11:10 am with Uzma Meadows MD. Provider: Abdiel Reason for call: [place] needs additional with the referral received. Freeman chiang fax over Op report, the PT protocol and WC information/ demographics. Please fax Attn: Chandra at [phone]. Does patient have confidential voicemail?: Yes- clinic documented in this encount er Plan of Treatment Not on filedocumented as of this encounter Visit Diagnoses Not on filedocumented in this encounter"
--- OUTSIDE RECORDS SUMMARY | ~2019-12-19 | XMS | Encounter Summary ---
Demographics + + + | Address | [address] | | | [place] [address] | + + + | Home Phone | | + + + | Preferred Language | Unknown | + + + | Marital Status | Single | + + + | Cheondoism Affiliation | NRP | + + + [...] Team Providers + +------+ + | Care Buffet Runner Name | Role | Phone | + [...] Closed | | Physical | Diagnoses | F[facility] | [facility] | | | | Therapy | Scapular | MD Gigi | [place] | | | | | dyskinesis | [address] | OTPTRehab | | | | | Procedures | [place] [address] | [address] | | | | | PHYSICAL | [address] | [address] | | | | | THERAPY | [place], | [place], [place] | | | | | REFERRAL | [place] | [address] | | | | | | [address] | Phone: | | | | | | Phone: | [phone] | | | | | | [phone] | Fax: | | | | | | Fax: | [phone] | | | | | | [phone] | | +--------+--------+ + + + + Reason for Visit + + + | Reason | Comments | + + + | Follow-up visit | | + + + Benefits Check (Routine) +--------+--------+ + + + + | Status | Reason | Specialty | Diagnoses / | Referred By | Referred To | | | | | Procedures | Contact | Contact | +--------+--------+ + + + + | Closed | | Orthopedics | | Non-[facility] | Abdiel, | | | | | | Epic Dept | Uzma Moreno, | | | | | | | [address] | | | | | | | [address] | | | | | | | [facility] [place] | | | | | | | [address] | | | | | | | Phone: | | | | | | | [phone] | | | | | | | Fax: | | | | | | | [phone] | +--------+--------+ + + + + Encounter Details +--------+---------+ + + + | Date | Type | Department | Care Team | Description | +--------+---------+ + + + | 01/10/ | Office | Orthopaedics | Uzma Meadows | Scapular dyskinesis | | 2018 | Visit | Faculty at [place] | MD Tiffanie [address] | (Primary Dx); | | | | for Health and | Ave [place], [place] | Complete tear of | | | | Healing [address] | [address] | right rotator cuff | | | | Ave [place] for | [phone] | | | | | Health and Healing, | | | | | | | | | | | | Floor [place], [place] | | | | | | [address] | | | | | | [phone] | | | +--------+---------+ + + + [...] Weight | 81.6 kg (180 lb) | 01/10/2018 8:15 AM | | | | | PDT | | + + + + + | Height | 170.2 cm (5' 7") | 01/10/2018 8:15 AM | | | | | PDT | | + + + + + | Body Mass Index | 28.19 | 01/10/2018 8:15 AM | | | | | PDT | | + + + + + documented in this encounter Progress Notes Uzma Meadows MD - 01/10/2018 8:30 AM PDT Diagnosis: rightshoulder rotator cuff tear Interventions to date: 08/31/2016 rightshoulder arthroscopy with rotator cuff repair (supr aspinatus and infraspinatus) andsubacromial decompression Review of interval history and current physical exam indicates that each is essentially unc hanged with the notable exceptions as described above and below. 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 Skin and Soft tissue: well healed. TTP: subacromial and posterior trapezius on right Range of motion: Right Left Active Passive Active Passive Forward flexion 170 170 Ext. rotation @ 0 60 60 Ext. rotation @ 90 Internal rotation T8 T6 Abduction 150 150 Kinetics Scapular asymmetry noted Strength: Operative arm Supraspinatus 4+ and minimally painful Infraspinatus 4+ and minimally painful Subscapularis 5/5 Deltoid Not tested Biceps 5/5 Assessment: Doing well overall postoperatively but having trapezius pain and minimal rotat or cuff sxs likely related to occupation and scapular dyskinesia. Plan: - return to PT for further work - letter written for work request accommodations and hopefully provide right hand drive veh icle - f/u 2 months for repeat evaluation (no xrays needed) I personally interviewed and evaluated this patient. I agree with the fellow's findings an d plan of care as described. Uzma Meadows MD [facility] Department of Orthopaedics and Rehabilitation Division of Sports Medicine documented in thi s encounter Plan of Treatment Not on filedocumented as of this encounter Procedures + +--------+ + + + | Procedure Name | Priori | Date/Time | Associated Diagnosis | Comments | | | ty | | | | + +--------+ + + + | ORDERS OTHER | | 01/10/2018 | | Results for this | | | | 12:00 AM | | procedure are in the | | | | PDT | | results section. | + +--------+ + + + documented in this encounter Results ORDERS OTHER (01/10/2018 12:00 AM PDT) + + + | Narrative | Performed At | + + + | | | + + + documented in this encounter Visit Diagnoses + + | Diagnosis | + + | Scapular dyskinesis - Primary Lack of coordination | + + | Complete tear of right rotator cuff Complete rupture of rotator cuff | + + documented in this encounter
--- OUTSIDE RECORDS SUMMARY | ~2019-12-19 | XMS | Encounter Summary ---
Demographics + + + | Address | [address] | | | [place] [address] | + + + | Home Phone | | + + + | Preferred Language | Unknown | + + + | Marital Status | Single | + + + | Mu-Ism Affiliation | NRP | + + + [...] Team Providers + +------+ + | Care Grain Sacker Name | Role | Phone | + +------+ + | Les Guzman MD | PCP | | + +------+ + Reason for Visit + + + | Reason | Comments | + + + | New Patient Visit | | + + + Intake Referral [...] | | injury of | Gem | [address] | | | | | muscle(s) | Medical | [address] | | | | | and | [address] | [place], [place] | | | | | tendon(s) of | [address] | [address] | | | | | the rotator | St | Phone: | | | | | cuff of | [place] | [phone] | | | | | right | [address] | Fax: | | | | | shoulder, | Phone: | [phone] | | | | | subsequent | [phone] | | | | | | encounter | Fax: | | | | | | Pain in | [phone] | | | | | | right | | | | | | | shoulder | | | +--------+--------+ + + + + Encounter Details +--------+---------+ + + + | Date | Type | Department | Care Team | Description | +--------+---------+ + + + | 07/01/ | Office | Orthopaedics | Cherelle King | Complete tear of | | 2017 | Visit | Faculty at [place] | NATHAN Moreno [address] [facility] | right rotator cuff | | | | for Health and | [address] | (Primary Dx) | | | | Healing [address] | [place], [place] | | | | | [facility] | [address] | | | | | Health and Healing, | [phone] | | | | | [facility] | | | | | | Floor [facility] [place] | | | | | | [address] | | | | | | [phone] | | | +--------+---------+ + + + Social History + +-------+ +--------+------+ | Tobacco Use | Types | Packs/Day | Years | Date | | | | | Used | | + +-------+ +--------+------+ | Never Smoker | | | | | + +-------+ +--------+------+ + + +---------+ + | Alcohol Use [...] + + + | Blood Pressure | 135/95 | 07/01/2016 10:12 AM | | | | | PDT | | + + + + + | Pulse | 75 | 07/01/2016 10:12 AM | | | | | PDT [...] + + + + | Weight | 78.5 kg (173 lb) | 07/01/2016 10:12 AM | | | | | PDT | | + + + + + | Height | 172.7 cm (5' 8") | 07/01/2016 10:12 AM | | | | | PDT | | + + + + + | Body Mass Index | 26.3 | 07/01/2016 10:12 AM | | | | | PDT | | + + + + + documented in this encounter Progress Notes Cherelle King PA-C - 07/01/2016 10:25 AM PDTFormatting of this note might be differe nt from the original. Loyd Pham is a 46 y.o. right hand dominant male complaining of right shoulder pain and weakness. Referred by DEE Guzman for orthopedic consultation and evaluation. History of present complaint: First noticed: Mar 06, 2016. Result of: sudden onset while fell on Ice at work. Location: posterior Pain: Average pain level 3 out of 10 at rest and 6/10 during maximal activity. The pain is characterized as varying with activity and interfering with sleep. Symptoms are exacerbated by overhead activity and reaching forward. Symptoms improve with rest. Past Medical/Surgical history: Past medical and surgical history reviewed per patient intake form Treatments for injury/condition have included: -1x PT consultation -consult with a neurologist- was told he had "Extensive nerve damage" based on EMG- Dr Myra Suarez in [place] Family History/ Review of Systems: Family history reviewed per patient intake form. Ten point review of systems completed, pertinent positives include: none No current outpatient prescriptions on file prior to visit. No current facility-administered medications on file prior to visit. 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 Physical Exam: Vital Signs: AA+O. Normal resting respiratory rate. BMI: Body mass index is 26.3 kg/(m^2). HEIGHT: Ht Readings from Last 1 Encounters: 07/01/16 1.727 m (5' 8") WEIGHT: Wt Readings from Last 1 Encounters: 07/01/16 78.5 kg (173 lb) Mental Status: Alert, awake, oriented and cooperative. Skin: clean and clear Observation: Within normal limits except as noted. Right Left Atrophy/Asymmetry Mild ted-scapular atrophy Scapular Kinetics Poor, with hiking Generalized Laxity Motion: Within normal limits except as noted. Right Left Active Passive Active Passive Forward Flexion External Rotation @ 0 deg ER @ 90 deg ABD IR @ 90 deg ABD Abduction Strength: Within normal limits except as noted. Right Left Supraspinatus 4 Infraspinatus Subscapularis Deltoid Biceps Testing: Within normal limits except as noted. Right Left Tenderness Impingement positive Drop - Arm Cross-chest Mckean's Stability: Within normal limits except as noted. Right Left Anterior Posterior Sulcus Cervical Spine: Within normal limits except as noted. Right Left Motion Tenderness C5 (Motor/Sensory) / / C6 / / C7 / / C8 / / T1 / / Other: Radiographs: Within normal limits except as noted. Mo/Yr Right Left X-rays MR Full thickness, retracted SS tear with moderate atrophy and minimal fatty inflitration Diagnosis: massive full thickness rotator cuff tear with retraction Plan: Case discussed with Dr Gutierrez. Recommending referral to Dr Meadows for consideration of repair (possible superior capsular reconstruction) Will request records from his neurology consult in the meantime documented in t his encounter Plan of Treatment Not on filedocumented as of this encounter Visit Diagnoses + + | Diagnosis | + + | Complete tear of right rotator cuff - Primary Complete rupture of rotator cuff | + + documented in this encounter
--- OUTSIDE RECORDS SUMMARY | ~2019-12-19 | XMS | Clinical Summary ---
Demographics + + + | Address | [address] | | | [place] [address] | + + + | Home Phone [...] Team Providers + +------+ + | Care Branch Office Manager Name | Role | Phone | + +------+ + | Les Guzman PA-C | PCP | | + +------+ + Source Comments TARIK is fully live on both [facility] and [facility] InPatient.[facility] Allergies No Known Allergies Medications + [...] + +---------+------+------+-------+ Active Problems Not on file Social History + +-------+ +--------+------+ | Tobacco [...] on file | | + + + Last Filed Vital Signs + [...] Health Maintenance | Due Date | Last | Comments | | | | Done | | + + + + + | Influenza (Flu) | | 12/30/19 | | | vaccination (#1) | 0 | 16, | | | | | 01/08/20 | | | | | 15, | | | | | 03/21/19 | | | | | 14, | | | | | Addition | | | | | al | | | | | history | | | | | exists | | + + + + + | Pneumococcal | Aged Out | | No longer eligible based on patient's age | | vaccination | | | to complete this topic | + + + + + [...] Lot | + +------+--------+ +--------+--------+--------+ | Suture Gifford, Peek Corkscrew | | Right: | ARTHREX | | 02/24/ | AR-192 | | Ft Tipleplay Implanted: Qty: | | | | | 2020 | 7PSF-3 | | 2 on 08/31/2016 by Abdiel, | | Should | | | | / | | Uzma Moreno MD at [facility] | | er | | | | /[id number] | | INPATIENT REV LOC | | | | | | 993 | + +------+--------+ +--------+--------+--------+ | Gifford Suture 5.5mm 2 Full | | Right: | ARTHREX | | 03/14/ | AR-192 | | Thread Corkscrew Fiberwire 2 | | | | | 2020 | 7PSF / | | Peek 14.7mm Sterile | | Should | | | | | | Disposable - | | er | | | | /[id number] | | [id number]: Qty: 1 on | | | | | | 619 | | 08/31/2016 by Abdiel, | | | | | | | | Uzma Moreno MD at [facility] | | | | | | | | INPATIENT REV LOC | | | | | | | + +------+--------+ +--------+--------+--------+ | Gifford Suture 4.75mm | | Right: | ARTHREX | | 11/12/ | AR-232 | | Swivelock Closed Eyelet Vent | | | | | 2020 | 4PSLC | | Peek 19.1mm Sterile | | Should | | | | / | | Disposable - | | er | | | | /[id number] | | [id number]: Qty: 1 on | | | | | | 095 | | 08/31/2016 by Abdiel, | | | | | | | | Uzma Moreno MD at [facility] | | | | | | | [...] [place] [employer] | [place] | [id number] | 03/06/ | [phone] | [address] | Worker | | | DEPT | | 2016-P | 6 | [phone] | s Comp | | | OF | | resent | | [place] | | | | LABOR | | | | [address] | | | | WC | | | | | | + +--------+ +--------+ + +--------+ | [place]UE [place] OF [place] | BLUE | [id number] | | [phone] | [address] | PPO | | | CROSS | | 015-Pr | 8 | [address] | | | | [place] | | esent | | [place], | | | | L | | | | [place] [address] | | + +--------+ +--------+ + +--------+ [...] | | al/Fam | | 1971 | [address] | [place] [address] | | | alyssa | | | 3 (Home) | | + +--------+ +--------+ + + | Loyd Pham | Worker | Self | [birth year] | | [address] | | | s Comp | | 1971 | [address] | [place] [address] | | | | | | 3 ([place]) | | + +--------+ +--------+ + + [...]
--- OUTSIDE RECORDS SUMMARY | ~2019-12-19 | XMS | Encounter Summary ---
Demographics + + + | Address | [address] | | | [place] [address] | + + + | Home Phone | | + + + | Preferred Language | Unknown | + + + | Marital Status | Single | + + + | Confucianist Affiliation | NRP | + + + | Race | White | + + + | Ethnic Group | Not or | + + + Author + + + | Author | [facility] | + + + | Organization | [facility] | + + + | Address | Unknown | + + + | Phone | Unavailable | + + + Support + + +---------+ + | Name | Relationship | Address | Phone | + + +---------+ + | Azul Stubbs | ECON | Unknown | | + + +---------+ + Care Team Providers + +------+ + | Care French Binding Folder Name | Role | Phone | + [...] | | | rupture of | | [facility], [place] | | | | | right | | [address] | | | | | shoulder, | | Phone: | | | | | not | | [phone] | | | | | specified as | | Fax: | | | | | traumatic | | [phone] | +--------+--------+ + + + + Encounter Details +--------+---------+ + + + | Date | Type | Department | Care Team | Description | +--------+---------+ + + + | 01/26/ | Office | Orthopaedics | Uzma Meadows | Complete tear of | | 2017 | Visit | Faculty at Center | MD Tiffanie [address] | right rotator cuff | | | | for Health and | Ave [place], [place] | (Primary Dx) | | | | Healing [address] | [address] | | | | | Ave [facility] | [phone] | | | | | Health and Healing, | | | | | | | | | | | | Floor [place], [place] | | | | | | [address] | | | | | | [phone] | | | +--------+---------+ + + + [...] sooner if problems arise. Uzma Meadows MD [facility] Department of Orthopaedics and Rehabilitation Division of [...]
--- OUTSIDE RECORDS SUMMARY | ~2019-12-19 | XMS | Encounter Summary ---
Demographics + + + | Address | [address] | | | [place] [address] | + + + | Home Phone [...] Team Providers + +------+ + | Care Data Collection Associate Name | Role | Phone | + [...] | rotator cuff | Center [address] | [place], [place] | | | | | Procedures | [address] | [address] | | | | | REQUEST TO | St | Phone: | | | | | SURGERY | [place] | [phone] | | | | | FARM HELPER | [address] | Fax: | | | | | DC SHLDR | Phone: | [phone] | | | | | ARTHROSCOP,S | [phone] | | | | | | URG,W/ROTAT | Fax: | | | | | | CUFF REPR | [phone] | | | | | | DC SHLDR | | | | | | | ARTHROSCOP,P | | | | | | | ART | | | | | | | ACROMIOPLAS | | | | | | | W/CORACOACRO | | | | | | | M DC SHLDR | | | | | | | ARTHROSCOP,S | | | | | | | URG,CAPSULOR | | | | | | | RHAPHY DC | | | | | | | REPAIR | | | | | | | BICEPS LONG | | | | | | | TENDON | | | +--------+--------+ + + + + Encounter Details +--------+---------+ + + + | Date | Type | Department | Care Team | Description | +--------+---------+ + + + | 09/16/ | Office | Orthopaedics | Uzma Meadows | Complete tear of | | 2017 | Visit | Faculty at [place] | MD Tiffanie [address] | right rotator cuff | | | | for Health and | Ave [place], [place] | (Primary Dx) | | | | Healing [address] | [address] | | | | | Ave [place] for | [phone] | | | | | Health and Healing, | | | | | | [facility] | | | | | | Floor [place], [place] | | | | | | [address] | | | | | | [phone] | | | +--------+---------+ + + + [...] pain medications. He continues to work on [employer] es is very pleased with his progress [...] as described. Uzma Meadows MD [facility] [place] Department of Orthopaedics and Rehabilitation Division of Sports Medicine documented in thi s encounter Plan of Treatment Not on filedocumented as of this encounter Visit Diagnoses + + | Diagnosis | + + | Complete tear of right rotator cuff - Primary Complete rupture of rotator cuff | + + documented in this encounter
--- OUTSIDE RECORDS SUMMARY | ~2019-12-19 | XMS | Encounter Summary ---
Demographics + + + | Address | [address] | | | [place] [address] | + + + | Home Phone | | + + + | Preferred Language | Unknown | + + + | Marital Status | Single | + + + | Caodaism Affiliation | NRP | + + + | Race | White | + + + | Ethnic Group | Not or | + + + Author + + + | Author | [facility] | + + + | Organization | [facility] | + + + | Address | Unknown | + + + | Phone | Unavailable | + + + Support + + +---------+ + | Name | Relationship | Address | Phone | + + +---------+ + | Azul Stubbs | ECON | Unknown | | + + +---------+ + Care Team Providers + +------+ + | Care Precision Layout Worker Name | Role | Phone | + +------+ + | Les Guzman PA-C | PCP | | + +------+ + Reason for Visit +--------+--------+ + | Reason | Onset | Comments | | | Date | | +--------+--------+ + | Other | 10/26/ | | | | 2017 | | +--------+--------+ + Encounter Details +--------+ + + + + | Date | Type | Department | Care Team | Description | +--------+ + + + + | 10/26/ | Telephone | Orthopaedics | Uzma Meadows | Other | | 2016 | | Faculty at [place] | MD Tiffanie [address] | | | | | for Health and | Ave [place], [place] | | | | | Healing [address] | [address] | | | | | e [place] for | [phone] | | | | | Health and Healing, | | | | | | [facility] | | | | | | Floor [place], [place] | | | | | | [address] | | | | | | [phone] | | | +--------+ + + + [...] Telephone Encounter - Pamela Patterson MA - 10/28/2016 11:58 AM PDTLetter emailed to petey goodwin. Called patient advised that letter has been sent via e-mail. Patient expressed an under standing and had no further questions at this time. elephone Encounter - Addison Santoro PA-C - 10/27/2016 6:06 PM PDTLetter signed and saved.Electronically signed by Addison Santoro PA-C at 6:07 PM PDTTelephone Encounter - Pamela Patterson MA - 10/27/2016 2:30 PM PDTLe tter pended and routed to DEE to review and sign. elephone Encounter - Aren Briggs - 10/26/2016 12:19 PM PD TPatient: Loyd Pham Last Visit: 10/13/16 at 11:20 am Next Visit: Next Appointment in [facility] is on 12/15/16 at 9:30 am with Uzma Meadows MD. Recent Surgery: Yes- DOS: 08/31/16 Procedure: Right shoulder RTC repair Provider: Abdiel Reason for call: Patient needs a letter stating he is not released to go back to work yet. Status to be updated at 12/15 post op appointment. Please email letter to patient or send thr ough mychart. Does patient have confidential voicemail?: Yes- documented in this encou nter Plan of Treatment Not on filedocumented as of this encounter Visit Diagnoses Not on filedocumented in this encounter"
--- OUTSIDE RECORDS SUMMARY | ~2019-12-19 | XMS | Encounter Summary ---
Demographics + + + | Address | [address] | | | [place] [address] | + + + | Home Phone [...] Team Providers + +------+ + | Care Facility Assistant Name | Role | Phone | + +------+ + | Les Guzman PA-C | PCP | | + +------+ + Reason for Visit + +--------+ + | Reason | Onset | Comments | | | Date | | + +--------+ + | [employer] | 08/13/ | | | Compensation Claim | 2020 | | | Follow Up | | | + +--------+ + Encounter Details +--------+ + + + + | Date | Type | Department | Care Team | Description | +--------+ + + + + | 08/13/ | Documentati | Orthopaedics | Milagros Calixto | [facility] | | 2020 | on | [facility] at [place] | NATHAN Patel [address] | Compensation Claim | | | | for Health and | [address] [place], | Follow Up | | | | Healing [address] | [place] [address] | | | | | [facility] for | [phone] | | | | | Health and Healing, | | | | | | [facility] | | | | | | Floor [place], [place] | | | | | | [address] | | | | | | [phone] | | | +--------+ + + + [...]
--- OUTSIDE RECORDS SUMMARY | ~2019-12-19 | XMS | Encounter Summary ---
Demographics + + + | Address | [address] | | | [place] [address] | + + + | Home Phone [...] Team Providers + +------+ + | Care Hand Alterations Tailor Name | Role | Phone | + +------+ + | Les Guzman PA-C | PCP | | + +------+ + Reason for Visit +---------+--------+ + | Reason | Onset | Comments | | | Date | | +---------+--------+ + | Post Op | 09/01/ | | | | 2016 | | +---------+--------+ + Encounter Details +--------+ + + + + | Date | Type | Department | Care Team | Description | +--------+ + + + + | 09/01/ | Telephone | Orthopaedics | Uzma Meadows | Post Op | | 2016 | | Faculty at [place] | MD Tiffanie [address] | | | | | for Health and | [address] [place], [place] | | | | | Healing [address] | [address] | | | | | Ave [facility] | [phone] | | | | | Health and Healing, | | | | | | Building | | | | | | Floor [place], [place] | | | | | | [address] | | | | | | [phone] | | | +--------+ + + + [...] Notes Telephone Encounter - Deborah Toth - 09/01/2016 12:40 PM PDTCalled patient and let h im know he can take his oxycodone once every 4 hours and tylenol every 2 inbetween pain med doses to help ease the pain. Patient agreed and also let me know his pain pump went from a full dose to 1/2 dose and he wasn't aware that is what happened and is okay now on pain johnie carrera. elephone Matilda Harvey - 09/01/2016 12:23 PM PDT1.5 hrs ago started having extreme pain, Oxycod one didn't relieve it. Took 1 tab an hour ago and 1 last night. Wondering if he needs to kobe e it 1 every 4 hrs. Pain level at a 10, feels like he's going to pass out. Nerve block seems like it's working Patient: Loyd Pham Last Visit: 07/07/16 at 9:20 am Next Visit: Next Appointment in [facility] is on 09/16/16 at 10:00 am with Uzma Meadows MD. Recent Surgery: Yes- 08/31/16 Procedure: Procedure: right shoulder arthroscopy with rotator cuff repair (supraspinatus an d infraspinatus) and subacromial decompression Provider: Abdiel Reason for call: pain Any new trauma?: no Where exactly is pain?: Shoulder, mostly bicep What makes pain better? nothing What makes pain worse? nothing What medications are you taking for pain control, how much & how often? See above Associated swelling? Hand is swollen, shoulder is covered Have you been icing and or elevating it?: none Does swelling improve with elevation? n/a Do you have any drainage? none If yes, how much? What does it look like? Do you have any redness surrounding wound? wound is wrapped Increasing tenderness? yes Fever/chills/shortness of breath? none Is this pain new or different than postop pain you have been experiencing?: Just started Does patient have confidential voicemail?: Yes documented in this encounte r Plan of Treatment Not on filedocumented as of this encounter Visit Diagnoses Not on filedocumented in this encounter"
--- OUTSIDE RECORDS SUMMARY | ~2019-12-19 | XMS | Encounter Summary ---
Demographics + + + | Address | [address] | | | [place] [address] | + + + | Home Phone | | + + + | Preferred Language | Unknown | + + + | Marital Status | Single | + + + | Confucianism Affiliation | NRP | + + + | Race | White | + + + | Ethnic Group | Not or | + + + Author + + + | Author | [facility] | + + + | Organization | [facility] | + + + | Address | Unknown | + + + | Phone | Unavailable | + + + Support + + +---------+ + | Name | Relationship | Address | Phone | + + +---------+ + | Azul Stubbs | ECON | Unknown | | + + +---------+ + Care Team Providers + +------+ + | Care Molding Sander Name | Role | Phone | + +------+ + | Les Guzman PA-C | PCP | | + +------+ + Encounter Details +--------+ + + + + | Date | Type | Department | Care Team | Description | +--------+ + + + + | 08/31/ | Procedure | [facility] | | | | 2017 | Pass | [place] [facility] | | | | | | and Healing Surgery | | | | | | Center Admitting | | | | | | Desk Located on the | | | | | | 4th floor [address] | | | | | [address] [place], | | | | | | [place] [address] | | | +--------+ + + + [...]
--- OUTSIDE RECORDS SUMMARY | ~2019-12-19 | XMS | Encounter Summary ---
Demographics + + + | Address | [address] | | | [place] [address] | + + + | Home Phone | | + + + | Preferred Language | Unknown | + + + | Marital Status | Single | + + + | Restoration Affiliation | NRP | + + + [...] Team Providers + +------+ + | Care System Programmer Name | Role | Phone | + [...] | | | 2017 | Event | [facility] | DO Manish cMnally Justin | | | | | and Healing Surgery | MD Will[place] [address] [facility] | | | | | Center Admitting | [facility] | | | | | Desk Located on the | [place], [place] | | | | | 4th floor [address] | [address] | | | | | [address]is[address] [place], | [phone] | | | | | [place] [address] | | | +--------+ + + + [...] nerve | Cannot be | | block ([facility], Single, I-Flow pump) | calculated | + [...] + + documented as of this encounter OR Notes Anesthesia Postprocedure Evaluation - David Martines MD,DMD - 08/31/2016 4:50 PM PDTFormat ting of this note might be different from the original. Loyd Saldana Ankit [id number] No Known Allergies Past Surgical History Procedure Laterality Date Knee surgery left Temp: 37 C (98.6 F) Pulse: 78 Resp: 18 BP: 130/81 SpO2: 95 % Evaluation Patient personally seen and evaluated for recovery from anesthesia care, VS including tempe rature and hydration status are normal and ROS including card, resp, Neuro, and GI w/o evide nce of adverse effects Complications nesthesia Procedur e Notes - Good Lee CRNA - 08/31/2016 1:07 PM PDTAssociated Order(s): ANE ETTProcedure Reason for Intubation: For surgical procedure, Location Performed: OR , Patient was preoxyg enated Mask Ventilation Grade 1 - Ventilated by mask Intubation Blade type: Anjelica , Blade size: 3, Atraumatic laryngoscopy: Atraumatic Laryngoscopy, In tubation adjuncts: N/A , Laryngoscopic view: Grade I, Fiberoptics used: N/A , Number of Atte mpts: 1, Positive for EtCO2: Yes, Breath sounds: Bilateral and equal ETT Ett Adult: Single-lumen cuffed ETT Size: 7 ETT secured with: adhesive tape Depth at Lip: 23 Cm Narrative Attending physically present nesthesia Procedu re Notes - Kristina Jimenez MD - 08/31/2016 12:42 PM PDTAssociated Order(s): ANE PNB CATHPNB Cath TYPE Type: interscalene block Indication: ultrasound guided Side: right Block indication: Have r eceived and accepted request from attending surgeon to offer advanced acute pain management services to the patient Location: Pre-Op, The patient was identified, the site marked, full PARQ Done PROCEDURE Pt. Position: Sitting Monitors used: EKG, NIBP and SpO2 Supplimental O2 used draped in ster ile fashion ULTRASOUND Spread characteristics: full spread around nerve/plexus Image: printed and placed in patien ts chart Guidance: Needle tip visualized NEEDLE Needle type: Tuohy Gauge: 17 G Length: 9 cm Needle insertion depth 4 cm Catheter at skin depth 9 cm No, Aspiration was Negative for blood NERVE STIMULATOR ASSESSMENT Ist attempt Complications: None Attending physically present Attending: DAMIÁN RAZO Performed by Resident KRISTINA JIMENEZ The patient was positioned seated in the pre-op block bay. Supplemental O2 was given and mo nitors were applied. After a pause, light sedation was administered with midazolam and fenta nyl. The patient tolerated the procedure well. No complications. Meaningful contact was main tained throughout. nesthesia Preproc edure Evaluation - Kristina Jimenez MD - 08/31/2016 10:39 AM PDTFormatting of this note migh t be different from the original. Loyd Pham [id number] No Known Allergies NPO: Last Vitals: Temp: 36.3 C (97.3 F) Pulse: 82 Resp: 15 BP: 131/86 SpO2: 100 % Preg Status/LMP: There is no problem list on file for this patient. Past Surgical History Procedure Laterality Date Knee surgery left Current Medication List Name Sig Last Dose IBUPROFEN 200 MG TABLET Take 200 mg by mouth every six hours as needed. Within last 30 days No results found for: RATE, ATRIALRATE, NM, QRS, QT, QTC, PAXIS, RAXIS, TAXIS, EKGDX Preoperative Adult Anesthesia Plan Last edited 08/31/16 1039 by Kristina Jimenez MD ROS Pertinent HPI: Loyd is a 46 year-old man presenting for Right rotator cuff surgery. His PMH is significant for allergen induced asthma with occasional albuterol inhaler use (last use 2 weeks ago). He is otherwise healthy. NKDA. Denies any problems with prior surgeries. Pulmonary: Pt. Has asthma Classification:allergic asthma Frequency: ER Visits: Hospital Visits: Cardiovascular: no CAD no hypertension GI/Hepatic: no GERD No liver disease : no renal failure Endo: no Diabetes: Neurological: Current Pain Level: MS: Has some neck/shoulder pain. Not on chronic opioids Heme/Onc: No blood thinners. No abnormal bleeding/bruising history Pt. has: no active bleeding no Bleeding diathesis / thrombotic bleeding Skin: Obstetrics: Physical Exam General: Patients general appearance: Alert and Healthy Head & Neck/Airway: Dentition: dentition is normal Dental risk discussed with/pt : Yes Whitt: Yes Mallampati: I Mouth Opening: > = 3 cm C-Spine: normal Neck Anatomy: Normal Jaw Protrusion: Normal, lower incisors can protrude past upper incisors Lung Exam: breath sounds normal Cardiac: Rhythm: regular Rate: normal Abdominal: Musculoskeletal: Neuro/Psych: alert Integument: Implants: 1039 Revision History Date/Time User Provider Type Action > 08/31/16 1039 Kristina Jimenez MD Resident Sign 08/28/16 1730 Kristina Jimenez MD Resident Share Anesthesia Plan Comments ASA ASA 2 NPO Status NPO Status: NPO by protocol Monitors/Lines to be used Standard Anesthetic Consideration PONV prophylaxis, Premeds and Preop antibiotics Induction intravenous induction Anesthetic Technique Home pump teaching completed by Kristina Jimenez MD (resident) in pre-op. The patient confirme d he will have either his or daughter at home with him at all times over the next 3 day s. Home pump information packet/presentation given to patient and his . General and Nerve Block; Comments: Discussed pre-op placement of right interscalene block with home pump for post-op pain. Discussed GA with ETT for the OR. Obstetric Anesthesia Post-Op Pain Plan IV analgesics, Peripheral Nerve Block and Orals; Blood Products None; Interpretive Services Informed Consent PARQ discussed with: patient and spouse, Procedures, Alternatives, Risks, and Questions di scussed ; ; Date Consent Series Given: 08/31/2016 10:40 AM Code status in OR Patients Code Status in OR: FULL 08/31 10:39 AM documented in this encounter Miscellaneous Notes Ane Home Pump Follow Up - Nuno Merchant MD - 09/04/2016 10:53 AM PDTHome Pump Follow Up Type of follow up: Phone call Reason for follow up: Routine call Patient mobility: Satisfactory Pt. is Satisfied with the procedure Additional training needed: No Note: Nerve block catheter removed yesterday, no issues ne Home Pump Follow Up - Kristina Jimenez MD - 09/01/2016 12:23 PM PDTHome Pump Follow Up Type of follow up: Phone call Reason for follow up: Call back Worst pain felt:10 Additional training needed: Yes Note: Loyd is having much worse pain as his surgical block has warn off. He has only take n a little bit of his oxycodone (two 5mg doses). I advised him to take another 5mg now and s tart taking 10mg Q 4 hours as he has been prescribed. I also advised him to start taking isadora taminophen in a scheduled way and to check with his surgeons if he can take ibuprofen as wel l. [facility]/ANE PreOp Note - Kristina Jimenez MD - 08/31/2016 10:37 AM PDT ROS Pertinent HPI: Loyd is a 46 year-old man presenting for Right rotator cuff surgery. His PMH is significant for allergen induced asthma with occasional albuterol inhaler use (l ast use 2 weeks ago). He is otherwise healthy. NKDA. Denies any problems with prior surgeries. Pulmonary: Pt. Has asthma Classification:allergic asthma Frequency: ER Visits: Hospital Vis its: Cardiovascular: no CAD no hypertension GI/Hepatic: no GERD No liver disease : no renal failure Endo: no Diabetes: Neurological: Current Pain Level: MS: Has some neck/shoulder pain. Not on chronic opioids Heme/Onc: No blood thinners. No abnormal bleeding/bruising history Pt. has: no active bleed ing no Bleeding diathesis / thrombotic bleeding Skin: Obstetrics: Physical Exam General: Patients general appearance: Alert and Healthy Head & Neck/Airway: Dentition: dentition is normal Dental risk discussed with/pt : Yes Whitt: Yes Mallampati: I Mouth Opening: > = 3 cm C-Spine: normal Neck Anatomy: Normal Jaw Protrusion: Normal, lowe r incisors can protrude past upper incisors Lung Exam: breath sounds normal Cardiac: Rhythm: regular Rate: normal Abdominal: Musculoskeletal: Neuro/Psych: alert Integument: Implants: documented in this encounter Plan of Treatment [...] | + +--------+ + + + | KOBY DIAZ | Routin | 08/31/2016 | | | | | e | 1:07 PM | | | | | | PDT | | | + +--------+ + + + documented in this encounter Results KOBY DIAZ (09/07/2016 11:53 AM PDT) + + + [...] Performed by | | | Resident KRISTINA JIEMNEZ The patient was positioned seated in the [...] 12:47 | | | | | Until 08/31/16 at 1616 | | PM PDT | [...]
[~2019-12-19 21:27] MED LIST changes: +MOTRIN IB200 MG PO; +PROAIR HFA8.5 GM INH; +TYLENOL EXTRA500 MG PO; +ZYRTEC10 MG PO
== END 2019-12-19 21:40 | disposition left against medical advice (07) ==
LOC: ED 21:27
DX: Z53.21 Procedure and treatment not carried out due to patient leaving prior to being seen by health care provider (principal)